=== PATIENT | female | born 1960 | race Caucasian/White ===

== ENCOUNTER 2018-03-10 13:12 | Outpatient (CLI) | payer BC, SELFPAY ==
[2018-03-10 14:08] LABS: HCT 41.2 % (36.0-46.0); Mean Corpuscular Hemoglobin 32.9 pg (27.0-33.0); Mean Corpuscular Volume 96.7 fL (80-95); Mean Platelet Volume 9.4 fL (8.0-11.0); Platelet Count 235 x1000/uL (130-400); RBC 4.26 m/cumm (4.00-5.20); RBC Distribution Width 12.2 % (11.7-14.6); White Blood Cell Count 5.03 k/cumm (4.4-10.8)
[2018-03-10 15:09] LABS: ALT 35 U/L (12-78); AST 30 U/L (15-37); Albumin 3.8 g/dL (3.4-5.0); Alkaline Phosphatase 75 U/L (46-116); Anion Gap 6.9 mmol/L (3-11); BUN 24 mg/dL (7-18); Bilirubin, Total 0.4 mg/dL (0.2-1.0); C-Reactive Protein 0.09 mg/dL (0.0-0.3); CO2 29.1 mmol/L (21.0-32.0); CREATININE 1.17 mg/dL (0.55-1.02); Calcium 9.5 mg/dL (8.5-10.1); Chloride 105 mmol/L (98-107); Estimated GFR 47.51 (mL/min/1.73m2); Glucose 102 mg/dL (70-100); Potassium 4.2 mmol/L (3.5-5.1); Sodium 141 mmol/L (136-145)
[2018-03-10 15:35] LABS: ESR 14 MM/HR (0-30)
== END 2018-03-10 13:32 ==
PROVIDERS: PCP Family Medicine; Visit Provider Internal Medicine Rheumatology
DX: L40.50 Arthropathic psoriasis, unspecified (principal); Z79.899 Other long term (current) drug therapy
CPT/HCPCS: 36415; 80053; 85027; 85652; 86140

== ENCOUNTER 2018-06-30 16:53 | Outpatient (CLI) | payer BC, SELFPAY ==
[2018-06-30 17:16] LABS: HCT 42.1 % (36.0-46.0); HGB 14.2 g/dL (12.0-15.5); Mean Corp. HGB Concentration 33.7 g/dL (32.0-36.0); Mean Corpuscular Hemoglobin 32.1 pg (27.0-33.0); Mean Corpuscular Volume 95.2 fL (80-95); Mean Platelet Volume 9.2 fL (8.0-11.0); Platelet Count 232 x1000/uL (130-400); RBC 4.42 m/cumm (4.00-5.20); RBC Distribution Width 12.4 % (11.7-14.6); White Blood Cell Count 4.73 k/cumm (4.4-10.8)
[2018-06-30 18:41] LABS: ESR 14 MM/HR (0-30)
[2018-06-30 19:23] LABS: ALT 36 U/L (12-78); AST 26 U/L (15-37); Alkaline Phosphatase 67 U/L (46-116); Anion Gap 10.8 mmol/L (3-11); BUN 21 mg/dL (7-18); Bilirubin, Total 0.4 mg/dL (0.2-1.0); CO2 27.2 mmol/L (21.0-32.0); CREATININE 0.97 mg/dL (0.55-1.02); Calcium 9.4 mg/dL (8.5-10.1); Chloride 106 mmol/L (98-107); Estimated GFR 58.98 (mL/min/1.73m2); Glucose 74 mg/dL (70-100); Sodium 144 mmol/L (136-145); Total Protein 7.2 g/dL (6.4-8.2)
[2018-06-30 19:24] LABS: C-Reactive Protein < 0.05 mg/dL (0.0-0.3)
== END 2018-06-30 17:13 ==
PROVIDERS: PCP Family Medicine; Visit Provider Internal Medicine Rheumatology
DX: L40.50 Arthropathic psoriasis, unspecified (principal); Z79.899 Other long term (current) drug therapy
CPT/HCPCS: 36415; 80053; 85027; 85652; 86140

== ENCOUNTER 2019-05-08 02:21 | Outpatient (CLI) | payer BC, SELFPAY ==
--- NOTE | 2019-05-08 15:11 | DI.CT_ITS ---
EXAM: CT PELVIC WO CLINICAL HISTORY: HX QUESTIONABLE PSORIATIC ARTHRITIS, EROSIONS ASSESSMENT OF SI JOINTS L40.9 TECHNIQUE: Noncontrast COMPARISON: SACRO ILIAC JOINTS from 12/04/2014 FINDINGS: There arebilateral L5 pars defects which appear old. There is mild L5-S1 spondylolisthesis. Degener ative disc changes are seen at L3-4, L4-5 and L5-S1. There is mild spurring of the SI joints. There are a few tiny bony erosions adjacent to the inferior SI joints bilaterally, right greater than left . The hip joints show moderate joint space narrowing and subchondral cyst formation on both sides of the joint. The urinary bladder is unremarkable. The evaluation of the bowel is suboptimal due to l ack of intra-abdominal fat and lack of IV and oral contrast. IMPRESSION: Mild spurring and a few tiny bony erosions adjacent to the inferior SI joints. The findings are nons pecific and could be degenerative or could possibly be related to psoriatic arthritis. Degenerative changes are noted in both hips and lower lumbar spine.
--- NOTE | 2019-05-08 15:52 | DI.DEXA_ITS ---
EXAM: XR DEXA BONE DENSITY W/WO SAUL INDICATION: OSTEOARTHRITIS OF MULTIPLE JOINTS M15.9. COMPARISON: DEXA BONE DENSITY WITH SAUL from 08/13/2015 FINDINGS: The SAUL image shows no evidence of compression fractures. The bone mineral density measurements of the lumbar spine correspond to a total T-score of -1.8, in the osteopenic range. This is not signifi cantly changed from the previous exam. The bone mineral density measurements of the left hip corresp ond to a total T-score of -1.2 and a femoral neck T-score of -1.4, in the osteopenic range. This is not significantly changed from the previous exam. The bone mineral density measurements of the left forearm correspond to a T-score of the distal third of -0.2. This is a 6.3 percent decrease when com pared with 2016. IMPRESSION: Stable osteopenia of the lumbar spine and left hip. Normal bone mineral density of the left forear m with decrease in bone density when compared with 2016 of 6.3 percent.
== END 2019-05-08 02:41 ==
PROVIDERS: PCP Family Medicine; Visit Provider Internal Medicine
DX: M85.88 Other specified disorders of bone density and structure, other site (principal); M15.0 Primary generalized (osteo)arthritis; M53.3 Sacrococcygeal disorders, not elsewhere classified; M16.0 Bilateral primary osteoarthritis of hip; M43.17 Spondylolisthesis, lumbosacral region
CPT/HCPCS: 77080; 72192

== ENCOUNTER 2019-06-06 10:39 | Outpatient (REF) | payer BC, SELFPAY | END 2019-06-06 10:59 | LOC: LBN 10:39 | PROVIDERS: PCP Family Medicine; Visit Provider Family Medicine | DX: N89.8 Other specified noninflammatory disorders of vagina (principal) | CPT/HCPCS: 87480; 87510; 87660 ==

== ENCOUNTER 2019-12-12 08:04 | Outpatient (CLI) | payer BC, SELFPAY ==
[2019-12-15 02:14] LABS: SARS-CoV-2 RNA Undetected (Undetected); SARS-CoV-2 Specimen Source Nasopharynx
== END 2019-12-12 08:24 ==
PROVIDERS: PCP Family Medicine; Visit Provider Family Medicine
DX: Z11.59 Encounter for screening for other viral diseases (principal)
CPT/HCPCS: U0003

== ENCOUNTER 2019-12-14 02:31 | Outpatient (CLI) | payer BC, SELFPAY ==
[2019-12-14 12:44] LABS: ALT 45 U/L (14-59)
== END 2019-12-14 02:51 ==
PROVIDERS: PCP Family Medicine; Visit Provider Internal Medicine
DX: Z79.899 Other long term (current) drug therapy (principal)
CPT/HCPCS: 36415; 84460

== ENCOUNTER 2019-12-21 00:23 | Outpatient (CLI) | payer BC, SELFPAY ==
--- NOTE | 2019-12-21 07:00 | DI.RAD_ITS ---
EXAM: RF BARIUM SWALLOW CLINICAL HISTORY: dysphagia, R13.10 TECHNIQUE: 2D and realtime digital imaging was performed. CONTRAST MATERIAL: Thick and thin barium and barium tablet were administered. COMPARISON: No exams were available for comparison FINDINGS: The preliminary chest films show normal heart size and clear lung zheng. The lateral press box custodian view of the neck shows degenerative changes in the cervical spine.. Esophagus: The patient swallowed barium without difficulty. Noevidence for mucosal erosions. Nofold thickening. No mass is visible. Nostricture. Motility: There is a normal primary stripping wave. No tertiary contractions were noted. There is no hiatal hernia. The barium tablet passed into the stomach without delay. Nogastroesophageal reflux was observed during the exam. IMPRESSION: Normal barium swallow.
[2019-12-21] MEDS: Barium Sulfate 60% W/V 355 ML BTL PO (10:09)
[2019-12-21] MEDS: Simethicone/Sod Bicarb/Cit Ac, 4 gram PACKET 1 PACKET PO (10:12)
== END 2019-12-21 00:43 ==
PROVIDERS: PCP Family Medicine; Visit Provider Family Medicine
DX: R13.10 Dysphagia, unspecified (principal)
CPT/HCPCS: 74221; J3490

== ENCOUNTER 2020-01-18 15:35 | Outpatient (REF) | payer BC, SELFPAY ==
[2020-01-18 19:42] LABS: Bilirubin Negative (Negative); Blood Trace-lysed (Negative); Clarity Clear (Clear); Glucose Negative (Negative); Ketones Negative (Negative); Leukocyte Esterase Negative (Negative); Nitrite Negative (Negative); Urobilinogen 0.2 EU/dL (Up TO 0.2)
[2020-01-18 20:01] LABS: Bacteria Negative HPF (Negative); C & S Indicated? No; Casts Negative LPF (Negative); Crystals Negative HPF (Negative); Epithelial Cells Few HPF (Negative); Mucus Negative (Negative); RBC 0-2 HPF (0-2)
== END 2020-01-18 15:55 ==
LOC: LBN 15:35
PROVIDERS: PCP Family Medicine; Visit Provider Family Medicine
DX: R30.0 Dysuria (principal)
CPT/HCPCS: 81003; 81015

== ENCOUNTER 2020-06-10 03:12 | Outpatient (RCR) | payer BC, SELFPAY ==
--- NOTE | 2020-06-10 11:00 | HOLTER_ITS ---
APPROVED REPORT Exam Type: HOLTER MONITOR APPLICATION Reason for Test: palpitation Patient Location: O Conclusion This is a 48-hour monitor order for indication of palpitations. ???The patient was in normal sinus rhythm for majority of the recording with an average heart rate of 86 bpm. ???There were 3 episodes of supraventricular tachycardia with the longest lasting 4 beats. ???There were 0 episodes of ventricular tachycardia and 3 total PVCs. ???There were no episodes of atrial fibrillation, no pauses greater than 3 seconds and no evidence of high degree heart block. ???There were no patient triggered events.
== END 2020-06-13 23:59 | disposition home or self-care (01) ==
LOC: RT 03:12
PROVIDERS: PCP Family Medicine; Visit Provider Family Medicine
DX: R00.2 Palpitations (principal); I47.1 Supraventricular tachycardia; I49.3 Ventricular premature depolarization
CPT/HCPCS: 93225; 93226

== ENCOUNTER 2020-06-12 02:59 | Outpatient (CLI) | payer BC, SELFPAY ==
[2020-06-12 16:59] LABS: MCH 31.6 pg (27.0-33.0); MCHC 32.6 % (32.0-36.0); MCV 97.1 fL (80-95); MPV 9.2 fL (8.0-11.0); Platelet Count 243 10^3/uL (130-400); RBC 4.43 10^6/uL (3.93-5.22); RDW 12.6 % (11.7-14.6); RDW-SD 45.4 fL
[2020-06-12 18:13] LABS: ALT 49 U/L (14-59); AST 30 U/L (15-37); Albumin 4.2 g/dL (3.4-5.0); Alkaline Phosphatase 79 U/L (46-116); BUN 25 mg/dL (7-18); Bilirubin, Total 0.5 mg/dL (0.2-1.0); CREATININE 1.05 mg/dL (0.55-1.02); Calcium 9.5 mg/dL (8.5-10.1); Calculated LDL 231 mg/dL (<100); Chloride 104 mmol/L (98-107); Cholesterol 366 mg/dL (<200); Estimated GFR 53.46 (mL/min/1.73m2); Glucose 94 mg/dL (74-106); HDL Cholesterol 119 mg/dL (40-60); Potassium 4.1 mmol/L (3.5-5.1); Sodium 140 mmol/L (136-145); TSH (W/Ref FT4) 1.61 uIU/mL (0.36-3.74); Total Protein 7.5 g/dL (6.4-8.2); Triglyceride 82 mg/dL (<150); Vitamin B12 1035 pg/mL (193-986)
[2020-06-12 18:17] LABS: Folate > 20.0 ng/mL (8.6-20.0)
[2020-06-13 04:46] LABS: Vitamin D 25 Total 58.5 ng/ml (30-100)
== END 2020-06-12 03:19 ==
PROVIDERS: PCP Family Medicine; Visit Provider Family Medicine
DX: Z00.00 Encounter for general adult medical examination without abnormal findings (principal); R00.2 Palpitations
CPT/HCPCS: 36415; 80053; 80061; 82306; 85027; 82607; 82746; 84443

== ENCOUNTER 2020-09-06 04:06 | Outpatient (CLI) | payer BC, SELFPAY ==
--- NOTE | 2020-09-06 14:33 | DI.RAD_ITS ---
EXAM: XR KNEE RT 3V AP,LAT,KATERINE CLINICAL HISTORY: right knee pain, severe djd, oa,m17.12 TECHNIQUE: COMPARISON: No exams were available for comparison FINDINGS: Three views were obtained. There is severe narrowing of the medial tibiofemoral cartilaginous joint space. There is medial subluxation of the femur on the tibia. There is probable narrowing of the pa tellofemoral cartilaginous joint space. There are very prominent marginal osteophytes of all 3 joint s of the knee and there is chondrocalcinosis noted. IMPRESSION: Severe DJD most marked involving medial tibiofemoral joint. RADIATION DOSE DELIVERED: Total DLP
--- NOTE | 2020-09-06 14:42 | DI.RAD_ITS ---
EXAM: XR HIP RT COMPLETE AP PELVIS CLINICAL HISTORY: right hip pain,ARTHRITIS, M16.10 TECHNIQUE: COMPARISON: CR SACRO ILIAC JOINTS from 12/04/2014 FINDINGS: Two views were obtained. There is moderate to severe loss of the cartilaginous joint space of the hi p superiorly. There is mild subchondral sclerosis and cyst formation of the acetabulum. Minimal mar ginal osteophyte formation of the acetabulum and femoral head noted. There is cartilaginous joint space narrowing of the left hip joint noted as well. Similar mild hyper trophic change also noted involving the bones of the left hip. Mild degenerative changes of both SI joints noted as well. IMPRESSION: Moderate degenerative changes both hips RADIATION DOSE DELIVERED: Total DLP
== END 2020-09-06 04:26 ==
PROVIDERS: PCP Family Medicine; Visit Provider Family Medicine
DX: M25.551 Pain in right hip (principal); M16.0 Bilateral primary osteoarthritis of hip; M53.3 Sacrococcygeal disorders, not elsewhere classified; M25.561 Pain in right knee; M17.11 Unilateral primary osteoarthritis, right knee
CPT/HCPCS: 73562; 73502

== ENCOUNTER 2021-01-10 01:30 | Outpatient (CLI) | payer BC, SELFPAY ==
[2021-01-10 12:24] LABS: HGB 13.6 g/dL (11.2-15.7); MCH 31.3 pg (27.0-33.0); MCHC 32.4 % (32.0-36.0); MCV 96.6 fL (80-95); Platelet Count 250 10^3/uL (130-400); RBC 4.35 10^6/uL (3.93-5.22); RDW 12.4 % (11.7-14.6); RDW-SD 44.4 fL; WBC 4.65 10^3/uL (4.4-10.8)
[2021-01-10 12:32] LABS: ESR 6 mm/hr (0-30)
[2021-01-10 12:35] LABS: ALT 23 U/L (14-59); AST 26 U/L (15-37); Alkaline Phosphatase 74 U/L (46-116); Anion Gap 11.2 mmol/L (3-11); BUN 21 mg/dL (7-18); Bilirubin, Total 0.5 mg/dL (0.2-1.0); CO2 25.8 mmol/L (21.0-32.0); CREATININE 0.9 mg/dL (0.55-1.02); Calcium 9.7 mg/dL (8.5-10.1); Chloride 105 mmol/L (98-107); Glucose 101 mg/dL (74-106); Potassium 4.3 mmol/L (3.5-5.1); Sodium 142 mmol/L (136-145)
[2021-01-13 10:16] LABS: IgA 132 mg/dL (85-499); IgG 734 mg/dL (610-1,616); IgM 402 mg/dL (35-242)
[2021-01-13 15:51] LABS: ANA Interpretation Negative (Negative)
[2021-01-14 15:25] LABS: SS-A Antibody 0.9 Units (<20.0)
[2021-01-14 15:28] LABS: SS-B (La) Ab, IgG 2.4 Units (<20.0)
== END 2021-01-10 01:31 | disposition home or self-care (01) ==
LOC: LOS 01:30
PROVIDERS: PCP Family Medicine; Visit Provider Family Medicine
DX: R68.2 Dry mouth, unspecified (principal); H04.123 Dry eye syndrome of bilateral lacrimal glands
CPT/HCPCS: 36415; 80053; 82784; 85027; 85652; 84155; 84165; 86038; 86235; 86320

== ENCOUNTER 2021-04-28 17:35 | Outpatient (REF) | payer BC, SELFPAY ==
[2021-04-28 21:46] LABS: Bilirubin Negative (Negative); Blood Trace-intact (Negative); Clarity Cloudy (Clear); Glucose Negative (Negative); Ketones Trace mg/dL (Negative); Leukocyte Esterase Small (Negative); Nitrite Negative (Negative); Urobilinogen 0.2 EU/dL (Up TO 0.2); pH 7.5 (5-8)
[2021-04-28 21:47] LABS: Bacteria Many HPF (Negative); C & S Indicated? Yes; Casts Negative LPF (Negative); Crystals Negative HPF (Negative); Epithelial Cells Few HPF (Negative); Mucus Negative (Negative)
== END 2021-04-28 17:36 | disposition home or self-care (01) ==
LOC: NCHCN 17:35
PROVIDERS: PCP Family Medicine; Visit Provider Family Medicine
DX: R30.0 Dysuria (principal)
CPT/HCPCS: 87077; 81003; 81015; 87086; 87186

== ENCOUNTER 2021-04-29 14:26 | Outpatient (CLI) | payer BC, SELFPAY ==
--- NOTE | 2021-04-29 14:15 | DI.RAD_ITS ---
Exam(s) XR STANDING ALIGNMENT XR KNEE RT 1V EXAM: XR STANDING ALIGNMENT CLINICAL HISTORY: Right knee f/u. TECHNIQUE: 2D digital imaging was performed. Standing AP views were performed from the pelvis throu gh the ankles. COMPARISON: CR XR KNEE RT 1V from 04/29/2021 CR XR KNEE RT 1V from 04/29/2021 FINDINGS: There is moderate narrowing of the hip joint spaces bilaterally. There is no significant overall leg length discrepancy at the level of the femoral heads. There are severe degenerative changes of the medial femoral tibial joint space of the right knee. There is also severe narrowing and prominent sp urring at the patellofemoral joint on the right. There is periarticular spurring and chondral calcin osis. There is moderate narrowing of the medial femoral tibial joint space of left knee. Chondrocal cinosis is also seen on the left. There are mild degenerative changes of the ankles. Degenerative c hanges and scoliosis are noted in the lumbar spine. IMPRESSION: Degenerative changes, most severe involving the medial femoral tibial joint of the right knee. No si gnificant leg length discrepancy. DATA REPOSITORY: RADIATION DOSE DELIVERED:
== END 2021-04-29 14:27 | disposition home or self-care (01) ==
LOC: DIORS 14:27
PROVIDERS: PCP Family Medicine; Referring Provider Family Medicine; Visit Provider Physician Assistant
DX: M17.11 Unilateral primary osteoarthritis, right knee (principal); M16.0 Bilateral primary osteoarthritis of hip; M19.071 Primary osteoarthritis, right ankle and foot; M19.072 Primary osteoarthritis, left ankle and foot
CPT/HCPCS: 73560; 77073

== ENCOUNTER 2021-05-05 02:51 | Outpatient (CLI) | payer BC, SELFPAY ==
[2021-05-05 10:38] LABS: Source Nasal/Nares
[2021-05-05 13:55] LABS: COVID-19 PCR Negative (Negative)
== END 2021-05-05 02:52 | disposition home or self-care (01) ==
LOC: LBO 02:51
PROVIDERS: PCP Family Medicine; Visit Provider Student in an Organized Health Care Education/Training Program
DX: Z20.822 Contact with and (suspected) exposure to COVID-19 (principal)
CPT/HCPCS: 87635

== ENCOUNTER 2021-05-05 03:34 | Outpatient (CLI) | payer BC, SELFPAY ==
[2021-05-05 09:08] LABS: HCT 40.1 % (36.0-46.0); HGB 13.2 g/dL (11.2-15.7); MCH 31.1 pg (27.0-33.0); MCHC 32.9 % (32.0-36.0); MCV 94.4 fL (80-95); MPV 9.7 fL (8.0-11.0); Platelet Count 277 10^3/uL (130-400); RBC 4.25 10^6/uL (3.93-5.22); RDW 12.4 % (11.7-14.6); RDW-SD 43.1 fL; WBC 5.38 10^3/uL (4.4-10.8)
[2021-05-05 09:25] LABS: Anion Gap 7.2 mmol/L (3-11); BUN 25 mg/dL (7-18); CO2 27.8 mmol/L (21.0-32.0); CREATININE 1.1 mg/dL (0.55-1.02); Calcium 9.3 mg/dL (8.5-10.1); Chloride 100 mmol/L (98-107); Glucose 90 mg/dL (74-106); Potassium 4.4 mmol/L (3.5-5.1); Sodium 135 mmol/L (136-145)
== END 2021-05-05 03:35 | disposition home or self-care (01) ==
LOC: LBO 03:34
PROVIDERS: PCP Family Medicine; Visit Provider Student in an Organized Health Care Education/Training Program
DX: M16.11 Unilateral primary osteoarthritis, right hip (principal); Z01.818 Encounter for other preprocedural examination
CPT/HCPCS: 36415; 80048; 85027

== ENCOUNTER 2021-05-06 06:02 | Day surgery (SDC) | payer BC, SELFPAY ==
[2021-05-06] VITALS (12 sets, daily range): BP systolic 102–133; BP diastolic 68–99; PULSE 54–95; RESP 12–18; TEMP 36.3–36.6; O2SAT 95–100; BMI 22.4
[2021-05-06] MEDS: Celecoxib 200 MG CAP 400 MG PO (06:30)
[2021-05-06] MEDS: Acetaminophen 500 MG TAB 1000 MG PO ×2 (06:31→13:40)
[2021-05-06] MEDS: Gabapentin 300 MG CAP PO (06:31)
[2021-05-06] MEDS: Lactated Ringers 1,000 ML 80 ML IV (06:42)
--- NOTE | 2021-05-06 06:58 | W.ANESPRE ---
General Info Date of Service Date Performed: 05/06/21 Height: 5 ft 3 in Weight: 57.5 kg Body Mass Index (BMI): 22.4 Surgical Procedure: Operation Date: 05/06/21 07:55 Proposed Procedures Side Surgeon p Knee Total Arthroplasty (R) Right Blane Lainez MD Meds Allergies and Home Medications Allergies Allergy/AdvReac Type Severity Reaction Status Date / Time doxycycline Allergy Intermediate Rash Verified 05/06/21 06:10 phenylbutazone AdvReac WANG's Verified 05/06/21 06:10 Home Medication Medication Instructions Recorded flaxseed oil 2,000 mg PO DAILY 02/09/13 multivitamin [Daily Vitamin] 1 tab PO DAILY 02/09/13 lysine HCl 1,000 mg PO TID PRN 01/15/15 estradiol 10 mcg vaginal tablet 10 mcg VG 2x/week #30 tab 11/06/20 pantoprazole 40 mg tablet,delayed 40 mg PO DAILY 11/08/20 release melatonin 3 mg-pyridoxine (vitamin 2 tab PO HS tab 01/09/21 B6) 2 mg tablet turmeric root extract 500 mg 500 mg PO DAILY cap 01/09/21 capsule triamcinolone acetonide 0.1 % 1 applic TOPICAL BID PRN #80 gm 01/31/21 topical ointment estradiol 1 appful VG DAILY #127.5 g 02/28/21 naproxen 500 mg tablet 500 mg PO BID #180 tab 03/25/21 secukinumab 150 mg/mL subcutaneous 300 mg SUBCUT Q4W ml 04/03/21 pen injector duloxetine 30 mg capsule,delayed 30 mg PO BID #180 cap 04/14/21 release diclofenac sodium 1 % topical gel 2 g TOPICAL QID PRN 04/29/21 guselkumab [Tremfya] 100 mg SUBCUT DIRECTED 05/05/21 Current Visit Medications: Current Medications Generic Name Dose Route Start Last Admin Trade Name Freq PRN Reason Stop Dose Admin Acetaminophen 1,000 mg 05/06/21 06:00 05/06/21 06:31 Acetaminophen 500 Mg Tab PO 05/06/21 16:00 1,000 mg PREOP BA Administration Celecoxib 400 mg 05/06/21 06:00 05/06/21 06:30 Celecoxib 200 Mg Cap PO 05/06/21 16:00 400 mg PREOP BA Administration Gabapentin 300 mg 05/06/21 06:00 05/06/21 06:31 Gabapentin 300 Mg Cap PO 05/06/21 16:00 300 mg PREOP BA Administration Tranexamic Acid 1,000 mg/ 60 mls @ 360 mls/hr 05/06/21 06:00 Sodium Chloride IVPB 05/06/21 16:00 PREOP BA Tranexamic Acid 1,000 mg/ 60 mls @ 360 mls/hr 05/06/21 06:00 Sodium Chloride IVPB 05/06/21 16:00 DIRECTED BA Ringer's Solution 1,000 mls @ 80 mls/hr 05/06/21 06:00 05/06/21 06:42 IV 06/04/21 23:59 80 mls/hr INFUSION BA Administration Cefazolin Sodium/Dextrose 2 gm in 50 mls @ 100 mls/hr 05/06/21 06:00 Ancef Duplex IVPB 06/04/21 23:59 PREOP BA IV Miscellaneous Supplies 1 each 05/06/21 06:00 Iv Access IV 06/04/21 23:59 DIRECTED BA Sodium Chloride 0 ml 05/06/21 06:00 Normal Saline Flush 10 Ml Syr IV 06/04/21 23:59 PRN PRN Sodium Chloride 0 ml 05/06/21 06:00 Normal Saline 10 Ml Vial IJ 06/04/21 23:59 DIRECTED PRN Sterile Water 0 ml 05/06/21 06:00 Water,Injection,Sterile 10 Ml Vial IJ 06/04/21 23:59 DIRECTED PRN PFSH Active Problems Active Problems: Problem Status Onset Code Varicose veins of lower extremity I83.90 Sun-damaged skin 12/24/16 L57.8 Psoriatic arthritis 01/15/15 L40.50 Atypical mole 12/24/16 D22.9 Annual physical exam 04/04/15 Z00.00 Melanoma Spondylolisthesis M43.10 Skin irritation R23.8 Palpitations R00.2 Mammographic breast lesion 01/31/13 R92.8 Incomplete emptying of bladder R33.9 Hypercalcemia 07/17/13 E83.52 Grief at loss of child 10/01/15 F43.21, Z63.4 Enlarged lymph node 09/01/16 R59.9 Closed fracture of phalanx of finger 02/24/08 S62.609A Insomnia G47.00 ADITYA (obstructive sleep apnea) ~07/2019 G47.33 Skin lesion L98.9 Dysphagia R13.10 Dysuria R30.0 Palpitation R00.2 Hip arthritis M16.10 Right knee DJD M17.11 Femoroacetabular impingement of both hips M25.851, M25.852 Arthritis of right hip M16.11 Splinter T14.8XXA Xerostomia K11.7 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 Throat clearing R68.89 Cervical pain M54.2 Medical History Active Problem List Varicose veins of lower extremity (Chronic) Sun-damaged skin (Chronic 12/24/16) Psoriatic arthritis (Chronic 01/15/15) Atypical mole (Chronic 12/24/16) Annual physical exam (Acute 04/04/15) Melanoma (Acute) Spondylolisthesis (Acute) Skin irritation (Acute) Palpitations (Acute) Mammographic breast lesion (Acute 01/31/13) Incomplete emptying of bladder (Acute) Hypercalcemia (Acute 07/17/13) Grief at loss of child (Acute 10/01/15) Enlarged lymph node (Acute 09/01/16) Closed fracture of phalanx of finger (Acute 02/24/08) Insomnia (Acute) ADITYA (obstructive sleep apnea) (Chronic ~07/2019) Skin lesion (Acute) Dysphagia (Acute) Dysuria (Acute) Palpitation (Acute) Hip arthritis (Acute) Right knee DJD (Chronic) Femoroacetabular impingement of both hips (Acute) Arthritis of right hip (Acute) Splinter (Acute) Xerostomia (Acute) Xerophthalmia (Acute) Throat clearing (Acute) Cervical pain (Acute) Medical History Abnormal laboratory test result (07/17/13) elevated mcv Breast mass seen on mammogram 01/31/13 [facility] [place]; left breast mass Cat 4 Closed fracture of phalanx of finger 02/24/08 right middle distal phalanx Grief at loss of child (10/01/15) Hypercalcemia 07/17/13 Incomplete emptying of bladder Palpitations ? secondary to Arthrotec Pt. had holter monitor Parathyroid adenoma Skin irritation reaction to pool chemicals Spondylolisthesis LBP; L5-S1 Surgical History Surgical History (Updated 05/06/21 @ 07:13 by Yemi Corbett) BUNIONECTOMY 06/28; ROSALINDA Colonoscopy - MAC (03/04/12) History of varicose vein stripping Open Carpal Tunnel release (~1982) RIGHT Parathyroidectomy (06/02/17) S/P abdominal hysterectomy 06/14/99 ovary intact; fibroid disease S/P meniscectomy left-2006; right-2009 S/P DELMY (total abdominal hysterectomy) Status post fusion of joint of finger Right index and middle DIP joints Tobacco Smoking/Tobacco Use Status: Never Passive smoking exposure: No Alcohol Alcohol Intake: current Alcohol intake frequency: a few times a month Alcohol type: wine and hard liquor Substance Use Substance use: Never Substance use type: does not use Counseling given: No Counseling provided: none Vital Signs and Lab Results Vital Signs Most Recent Vital Signs in EMR: Most Recent Vital Signs Temp Pulse Resp BP Pulse Ox 36.6 C 83 16 115/82 95 05/06/21 06:15 05/06/21 06:15 05/06/21 06:15 05/06/21 06:15 05/06/21 06:15 Lab Results Blood Type / Crossmatch: No Data to Display Complete Blood Count: White Blood Count 5.38 10^3/uL (4.4-10.8) 05/05/21 08:25 05/05/21 Red Blood Count 4.25 10^6/uL (3.93-5.22) 05/05/21 08:25 05/05/21 Hemoglobin 13.2 g/dL (11.2-15.7) 05/05/21 08:25 05/05/21 Hematocrit 40.1 % (36.0-46.0) 05/05/21 08:25 05/05/21 Platelet Count 277 10^3/uL (130-400) 05/05/21 08:25 05/05/21 Complete Metabolic Panel: Sodium Level 135 mmol/L (136-145) L 05/05/21 08:25 05/05/21 Potassium Level 4.4 mmol/L (3.5-5.1) 05/05/21 08:25 05/05/21 Chloride Level 100 mmol/L (98-107) 05/05/21 08:25 05/05/21 Carbon Dioxide Level 27.8 mmol/L (21.0-32.0) 05/05/21 08:25 05/05/21 Blood Urea Nitrogen 25 mg/dL (7-18) H 05/05/21 08:25 05/05/21 Creatinine 1.1 mg/dL (0.55-1.02) H 05/05/21 08:25 05/05/21 Estimated GFR/1.73 m2 50.50 (mL/min/1.73m2) 05/05/21 08:25 05/05/21 Calcium Level 9.3 mg/dL (8.5-10.1) 05/05/21 08:25 05/05/21 Glucose Level 90 mg/dL (74-106) 05/05/21 08:25 05/05/21 Liver Function Panel: No Data to Display Coagulation Panel: No Data to Display Cardiac Panel: No Data to Display Arterial Blood Gas: No Data to Display Venous Blood Gas: No Data to Display Pancreas Panel: No Data to Display Thyroid Panel: No Data to Display Infectious Disease: Coronavirus (COVID-19)(PCR) Negative (Negative) 05/05/21 08:48 05/05/21 Coronavirus 2019 Source Nasal/Nares 05/05/21 08:48 05/05/21 Blood Cultures: No Data to Display Toxicology Panel: No Data to Display Imaging and Studies Imaging and Studies Other Study Summary:: Exam Type: HOLTER MONITOR APPLICATION Reason for Test: palpitation Patient Location: O Conclusion This is a 48-hour monitor order for indication of palpitations. ???The patient was in normal sinus rhythm for majority of the recording with an average heart rate of 86 bpm. ???There were 3 episodes of supraventricular tachycardia with the longest lasting 4 beats. ???There were 0 episodes of ventricular tachycardia and 3 total PVCs. ???There were no episodes of atrial fibrillation, no pauses greater than 3 seconds and no evidence of high degree heart block. ???There were no patient triggered events. <Electronically signed by HILARIA WILDER MD in [place]> E-Sign Date: 06/17/20 E-Sign Time: 928 Anesthesia Assessment and Plan Anesthesia History Personal History: No History of Anesthesia Complications Family History: No Family History of Anesthesia Complications Exercise Tolerance Exercise Tolerance: Metabolic Equivalents>4 Pertinent Negatives Pertinent Negatives: No Symptoms of GERD, No Major Cardiovascular Symptoms or Complaints, No Major Pulmonary Symptoms or Complaints and No History of CVA/TIA Cardiac & Pulmonary Exam Cardiac Exam: Normal S1/S2 Heart Sounds Pulmonary Exam: Clear Bilateral Breath Sounds Implantable Cardiac Device Does patient have a Pacemaker or an ICD?: No Airway Exam Known Difficult Airway: No Mallampati Class: 1 Mouth Opening: Normal (> 3cm) Thyromental Distance: Greater than 3 cm Neck Range of Motion: Full ROM Neck Circumference: Normal Teeth Condition: Normal Dentition Airway Comments: Multiple crowns in back ASA Classification ASA Score: ASA 2 Emergency Case?: No NPO Status NPO Status: NPO Clears >2 hours, Solids >8 hours Anesthesia Plan Resuscitation Status: Full Code Anesthesia Technique: Spinal Anesthesia Airway Planned: Natural Airway Monitors Used: Standard Monitors
[2021-05-06] MEDS: ceFAZolin 2 GM/50 ML BAG IVPB (07:45)
--- NOTE | 2021-05-06 07:54 | W.ANESNERVE ---
Nerve Block Single Injection Procedure Date and Time Date Performed: 05/06/21 Procedure Start: 07:12 Location Where Procedure Performed Procedure Location: Day Surgery Unit Reason Performed: Postoperative Analgesia Requesting Provider: Blane Lainez Timeout Performed Timeout Performed: Yes Monitoring Used ECG, Blood Pressure and SpO2 Sterility Sterility: Hand Hygiene, Surgical Cap, Surgical Mask, Sterile Gloves, Sterile Drape/Sheet, Eye Protection and Chlorhexidine Sedation Given During Procedure Sedation Given (Indicate Dose Given): No Sedation given Patient Mental Status Patient Mental Status: Awake Nerve Block 1st Nerve Block: Laterality: Right Block Type: Adductor Canal Needle / Catheter Used: 100mm SonoPlex II Local Anesthetic Bolus (Indicate Dose Given): Lidocaine used for local infiltration of skin, Injected in 3-5ml increments after negative blood aspiration and Bupivacaine 0.25% Dose:: 20cc Additives (Indicate Dose Given): None Ultrasound: Sterile probe cover and gel used Ultrasound Image Saved?: Yes Nerve Stimulator: Not Used Paresthesia: None Procedure Tolerated: No Complications and Patient tolerated well Procedure Outcome: Successful Performed By: Vernon Caraballo
[2021-05-06] MEDS: Ketorolac 30 MG/ML VIAL (08:28)
[2021-05-06] MEDS: Bupivacaine 0.25% Pres-Free 30 ML VIAL (08:28)
[2021-05-06] MEDS: Normal Saline 20 ML VIAL (08:28)
[2021-05-06] MEDS: oxyCODONE 5 MG TAB PO (10:39)
--- NOTE | 2021-05-06 10:44 | NUR.NOTE ---
Weak dorsiflexion on right on arrival from PACU. Loss of dorsiflexion on right foot 30 minutes later. Anesthesia made aware with Volodymyr from anesthesia in to evaluate. States Dr. Lainez has been made aware and will be in. Nursing Note:
--- NOTE | 2021-05-06 12:14 | PDOC.DSDIS_ITS ---
Discharge Plan Disposition Patient Disposition: HOME Condition: Good Discharge Details Reason For Visit: Right Knee DJD Attending Provider: Blane Lainez Primary Care Provider: Nataliya Veliz Home Meds and New Rx's Prescriptions: New acetaminophen 500 mg tablet 1,000 mg PO Q8H PRN (Reason: pain) Qty: 90 RF: 3 aspirin 81 mg tablet,delayed release (DR/EC) 81 mg PO BID Qty: 60 RF: 0 docusate sodium [Colace] 100 mg capsule 100 mg PO BID PRNQty: 10 RF: 0 gabapentin 300 mg capsule 300 mg PO QHS Qty: 7 RF: 0 oxycodone 5 mg tablet 5 mg PO Q4H Qty: 15 RF: 0 Continued turmeric root extract 500 mg capsule 500 mg PO DAILY RF: 0 pantoprazole [Protonix] 40 mg tablet,delayed release (DR/EC) 40 mg PO DAILY RF: 0 naproxen 500 mg tablet 500 mg PO BID Qty: 180 RF: 5 diclofenac sodium [Voltaren Arthritis Pain] 1 % gel 2 g topical QID PRNRF: 0 multivitamin [Daily Vitamin] 1 EACH tablet 1 tab PO DAILY RF: 0 flaxseed oil 1,000 MG capsule 2,000 mg PO DAILY RF: 0 lysine HCl 1,000 MG tablet 1,000 mg PO TID PRNRF: 0 estradiol [Vagifem] 10 mcg tablet 10 mcg VG 2x/week Qty: 30 RF: 12 melatonin-pyridoxine (vit B6) 3-2 mg tablet 2 tab PO HS RF: 0 triamcinolone acetonide 0.1 % ointment 1 applic Topical BID PRN (Reason: rash) Qty: 80 RF: 3 estradiol [Estrace] 0.01 % (0.1 mg/gram) cream 1 appful VG DAILY Qty: 127.5 RF: 4 Cosentyx Pen (2 Pens) 150 mg/mL pen injector 300 mg subcut Q4W RF: 0 Hold Instructions: Home Medication placed on hold at Doctor's office duloxetine 30 mg capsule,delayed release(DR/EC) 30 mg PO BID Qty: 180 RF: 6 Tremfya 100 mg/mL Auto-Injector 100 mg SUBCUT DIRECTED RF: 0 Discharge Instructions Additional Instructions: Total Knee Discharge Instructions Activity: The most important activity is to walk. You should try to take short walks a few times a day. It is important that when resting you work on keeping the knee straight. Avoid putting a pillow behind the knee as this will encourage flexion. Work on range of motion exercises as provided by Physical Therapy. If you have the [employer] bike coming, this will be your primary tool for exercise after the knee replacement. You should use it and follow the directions for the knee. Utilize the other exercises sparingly based on your symptoms. - Start outpatient physical therapy within 2 weeks. - You should wear the ANGELES hose on both legs for 2 weeks. You may remove these at night. You may also use any compression sock in place of the ANGELES hose. - Utilize [employer] to review exercises, see videos on exercises and obtain basic information pertaining to your surgery and your recovery. Dressing: Remove the Gene wrap by 2 days after your surgery and put on the ANGELES stocking given to you from the hospital. Keep the surgical dressing (underneath the GENE wrap) in place for at least one week. After the first week it may be removed and replaced with light gauze and tape or nothing. The wound and dressing may get wet after 3 days but avoid soaking the dressing or otherwise it will need to be changed. Many people prefer covering the dressing with cling wrap (saran wrap) to minimize it from getting soaked. If it gets wet, just pat dry. If it starts to peel off then it will need to be changed. Medications: - You should take Tylenol and anti-inflammatory Naproxen as your primary pain control. - You have been prescribed a stronger pain medication Oxycodone for breakthrough pain, take as needed as prescribed. - You should continue your stomach acid reduction agent Pantoprozole to help reduce stomach acid and reflux. - You have been prescribed Gabapentin to take at night for restlessness and nerve pain. - You will be taking Aspirin 81mg twice a day for DVT prevention unless instructed otherwise. - If you have constipation you should take Colace or Miralax (both [id number]). It takes most people 3-4 days to have a bowel movement. Follow-up: 2 weeks If you have any acute concerns or questions, please do not hesitate to contact the office at [phone]. You may contact Dr. Lainez with any questions after hours through the hospital at [phone] or on his cell phone at [phone]. Stand Alone Forms: Anesthesia Discharge Inst., Anes.Nerve Block Instructions Referrals: Blane Lainez MD [ [facility] STAFF PHYSICIAN] - Equipment/Supplies: Walker Activity:: Activity as Tolerated Shower/Bathe:: 72 hours Diet:: As Tolerated Discharge Orders Discharge Orders: Discharge Order (Routine); Ordered 05/06/21 Ordered By: Blane Lainez DS: Diagnosis Discharge Diagnosis (1) Right knee DJD: Status: Chronic
--- NOTE | 2021-05-06 12:15 | IN_ITS ---
Date of service: 05/06/21 Time of Service: 12:15 PT Notes Visit Reasons: Right Knee DJD Physical Therapy Day Surgery Initial Evaluation Date: 05/06/2021 Referring Doctor: CORBY Carrera PT Orders: PT CONSULT: Status post Ortho surgery Precautions: WBAT on right LE with AD. Patient Profile/Admitting Diagnosis: Ally is a 60-year-old female with degenerative joint disease of the right knee and is status post right total knee arthroplasty on postoperative day 0. Active Problem List (Updated 04/29/21 @ 15:26 by Lauren Quinn) Cervical pain (Acute) Throat clearing (Acute) Xerophthalmia (Acute) Xerostomia (Acute) Splinter (Acute) Arthritis of right hip (Acute) Femoroacetabular impingement of both hips (Acute) Right knee DJD (Chronic) Hip arthritis (Acute) Palpitation (Acute) Dysuria (Acute) Dysphagia (Acute) Skin lesion (Acute) ADITYA (obstructive sleep apnea) (Chronic ~07/2019) Annual physical exam (Acute 04/04/15) Insomnia (Acute) Closed fracture of phalanx of finger (Acute 02/24/08) Enlarged lymph node (Acute 09/01/16) Grief at loss of child (Acute 10/01/15) Hypercalcemia (Acute 07/17/13) Incomplete emptying of bladder (Acute) Mammographic breast lesion (Acute 01/31/13) Palpitations (Acute) Skin irritation (Acute) Spondylolisthesis (Acute) Melanoma (Acute) Atypical mole (Chronic 12/24/16) Psoriatic arthritis (Chronic 01/15/15) Sun-damaged skin (Chronic 12/24/16) Varicose veins of lower extremity (Chronic) PMHX: Medical History (Updated 04/29/21 @ 15:26 by Lauren Quinn) Abnormal laboratory test result (07/17/13) elevated mcv Breast mass seen on mammogram 01/31/13 [facility]; left breast mass Cat 4 Closed fracture of phalanx of finger 02/24/08 right middle distal phalanx Grief at loss of child (10/01/15) Hypercalcemia 07/17/13 Incomplete emptying of bladder Palpitations ? secondary to Arthrotec Parathyroid adenoma Skin irritation reaction to pool chemicals Spondylolisthesis LBP; L5-S1 Surgical History (Updated 04/29/21 @ 14:27 by Lauren Quinn) BUNIONECTOMY 06/28; ROSALINDA Colonoscopy - MAC (03/04/12) History of varicose vein stripping Open Carpal Tunnel release (~1982) RIGHT Parathyroidectomy (06/02/17) S/P abdominal hysterectomy 06/14/99 ovary intact; fibroid disease S/P meniscectomy left-2006; right-2009 Status post fusion of joint of finger Right index and middle DIP joints Social History/Home Situation: Lives with in a private home with one- step to enter the porch, 1 step to the entrance of the house and another 1 step to the kitchen. Independent with all activities of daily living prior to surgery. Equipment Owned/DME: None Subjective: Initially reported lightheadedness and needed to lie back down in bed. Nurse Yemi checked for orthostatic hypotension. Patient reported feeling better after a few minutes of rest in supine. Understands that her ability to lift her right foot may go back in 2 to 3 days per orthopedic surgeon. Objective: General Observation: Supine in stretcher. LUANNE wraps to right LE. Cryocuff to right knee. Mental Status: Alert and oriented x4 Pain: Reports 3?4/10 pain at rest and 5/10 pain after stair negotiation. ROM: Right Lower Extremity: Hip flexion WFL. Hip abduction WFL. Knee flexion 0 to 90 degrees. Knee extension 90 degrees to 0. Ankle dorsiflexion absent. Ankle plantarflexion WFL. Left Lower Extremity: Hip flexion WFL. Hip abduction WFL. Knee flexion WFL. An kle dorsiflexion WFL. Ankle plantarflexion WFL. Strength: Right Lower Extremity: Hip flexors 4/5. Hip abductors 4/5. Knee flexors 3-/5. Knee extensors 3/5. Ankle dorsiflexors 1/5. Ankle plantarflexors 4/5. Left Lower Extremity:Hip flexors 5/5. Hip abductors 5/5. Knee flexors 5/5. Knee extensors 5/5. Ankle dorsiflexors 5/5. Ankle plantarflexors 5/5. Sensation: Intact to B LE as to pain and light pressure Bed Mobility/Transfers: Supine to sit standby assist Sit to stand standby assist Stand to sit standby assist Bed to chair standby assist Gait: Instructed patient with safe and correct with use of front wheeled walker on level surface patient 200 feet requiring contact-guard assist. Steppage gait evident in right LE. Stairs: Negotiated 6 x 4 inch steps and 4 x 6 inch steps while holding onto B rails. Minimal cues given to increase flexion at the hip and the knee to clear toes during ascent and descent. No LOB. No report of increased pain in the right knee. Balance: Static Sitting: Normal Dynamic Sitting: Normal Static Standing: Fair Dynamic Standing: Fair Special Tests: Mobility Limitations Standardized Measure [facility] 6 clicks Basic Mobility Inpatient Short Form: Raw Score: 23 CMS Score: 11% deficit Informed Consent/Education: Patient instructed in purpose of PT consult. Packet containing R TKA exercise protocol has been given to patient. Education and training on initial set of exercises that can be done at home have been completed with patient. Assessment: Good quad activation on the R. Sensation to R anterior leg and dorsum of R foot intact. Postoperative temporary peroneal nerve palsy seen. Patient reports the use of front wheeled walker to maximize independence and reduce fall risk at home. Patient presents with clinical signs and symptoms consistent with current/admitting diagnoses that have resulted to mobility limitations, gait instability, generalized weakness, and impairment of motor control as demonstrated by the following impairment level findings: 1. Decreased strength to right knee flexors and right ankle dorsiflexors 2. Impaired standing balance 3. Limitation of joint range of motion in right knee knee flexion and and right ankle dorsiflexion Impairments are contributing to the following functional limitations: 1. Inability to safely ambulate without assistive device 2. Increase completion time for mobility ADL performance 3. Increased fall risk Patient is assessed as a 60488 moderate complexity based on the following: History: 60-year-old female with impairment level findings, functional limitations, and past medical history as indicated above Examination: Demonstrable impairment in strength, balance, and mobility level with underlying impairments and functional limitations as documented above Presentation: Evolving Decision Makin moderate complexity Goals: N/A. PT evaluation and 1-2 treatment sessions only for functional mobility training using recommended AD and for HEP instruction. Plan of Care/Treatment Plan: N/A. PT evaluation and 1-2 treatment session only for functional mobility training using recommended AD and for HEP instruction. DISCHARGE RECOMMENDATIONS: [] Home with no services [] [] Home with services [specify] [X] Home with outpatient PT. Home when medically cleared by orthopedic surge on. Outpatient PT to facilitate return to premorbid independent level without on assistive device. [] SNF for continued rehabilitation [] [] [facility] [] [] SNF versus LTC based on ability to participate and progress [] TREATMENT CODE/TIME: 9716 2 x 20 minutes, 9753 0 x 14 minutes beginning at 12:15 PM. Thank you for the opportunity to participate in the care of this patient. Tiffanie Brooks PT, DPT, CLT [facility] [place], [place]
--- NOTE | 2021-05-06 20:57 | ROE_ITS ---
Date of service: 05/06/21 Time of Service: 09:09 Operative Note Operative Note DATE OF PROCEDURE: 05/06/21 PRE-OP DIAGNOSIS: Right Knee Osteoarthritis POST-OP DIAGNOSIS: same PROCEDURE: Right Total Knee Replacement SURGEON: Blane Lainez ACCOUNT CLERK: Jenny Red ANESTHESIA TYPE: Spinal Refer to Anesthesia Record ESTIMATED BLOOD LOSS: 150 PATHOLOGY: none sent TOURNIQUET TIME: 0 COMPLICATIONS: None Patient was transported to: PACU Patient's condition: stable Implants: 1. Depuy Attune Cementless Cruciate Retaining Femoral Component, Size 4 2. Depuy Attune Cementless Rotating Platform Tibial Component, Size 4 3. Depuy Attune 4x7mm CR/RP Poly 4. Depuy Attune Patellar Component, Size 38 Indications: I have seen Kasandra in clinic for symptoms of knee arthritis, confirmed with radiographic findings. She has exhausted nonoperative methods and was having significant limitations in daily function and desired better function and less pain. I discussed the technical details of a knee replacement. I explained the risks of the procedure to include, but not limited to, bleeding, infection, pain, stiffness, fracture, damage to nerves and vessels, damage to muscles and tendons, loosening, need for repeat procedure, blood clot and cardiopulmonary demise. Despite these risks, Kasandra elected to proceed. Findings: There was significant signs of arthritis throughout the knee. Procedure Description: Kasandra was greeted in the preoperative holding area where the correct side was identified and marked. The consent was reviewed with the patient and signed. The history and physical was updated. All questions were answered. Preoperative medications were administered: Acetaminophen 1000mg, Celebrex 400mg, and Gabapentin 300mg. An adductor canal block was then administered by the anesthesia team in the PACU. Yusra was taken back to the operating room. A spinal anesthestic was then administered. The patient was placed into the supine position on the operating room table. A nonsterile tourniquet was placed high onto the leg but only used for cementing. Posts were placed for positioning during the procedure. All bony prominences were well padded. Prophylactic antibiotics in the form of Cefazolin were administered. 1g of Tranxemic Acid was given intravenously within 30 minutes of incision. The right leg was then prepped with Chloraprep and draped in a standard fashion with impervious stockinette. A second prep with Chloraprep was performed prior to application of Iodine impregnated skin protection. A timeout to confirm correct identity, side and site, procedure, allergies, anesthesia, and medical concerns was performed. With the knee in some flexion, a midline incision was made overlying the knee. Full thickness skin flaps were raised once the extensor mechanism was encountered. These were raised medially and laterally. Any bleeding was controlled with electrocautery. Once the extensor mechanism was fully exposed, a medial parapatellar arthrotomy was performed in a flexed position. All bleeding from the arthrotomy and the geniculate arteries was coagulated. A medial subperiosteal peel was performed with electrocautery to the midcoronal plane. The fat pad was removed while keeping the patellar tendon protected. The anterior distal femur synovium was removed for later visualization. The ACL and PCL were resected and the anterior horn of the lateral meniscus was transected. The knee was then flexed with the patella everted. Large osteophytes from the tibia were removed. Large ost eophytes from the femur were removed. Using a step drill, and based on preoperative templating, the femoral canal was entered. This was done with a step drill without any difficulty. The intramed ullary distal femoral cut guide was inserted, set to a 6 degree valgus cut and 8mm cut thickness. The distal femoral cut guide was then held in position and pinned. With the soft tissues protected, the distal cut was performed. This was passed over a few times to ensure a planar cut. I then turned attention to the tibia. The extramedullary guide was placed onto the leg. The distal aspect was slid medial to adjust for position of center of ankle and stay in line with shaft of the tibia. Approximately 5 degrees of posterior slope was kept in the proximal cutting guide. The center of the guide was aligned with the PCL. The stylus was used to assess cut thickness. The medial side, most involved side, was set for a 5mm cut, which corresponded to 8mm laterally. This was then held in position and pinned into place with 2 additional pins and a cross pin for stability. The medial and lateral collateral ligaments were protected and the cut was performed. With this completed, it was assessed and noted to be of appropriate dimensions. The guide was removed. A spacer block was inserted and the knee was brought into extension. The 7mm spacer block provided full extension, without hyperextension and with stability of both the medial and lateral collateral ligaments was assessed. The pins from the femur and the tibia were then removed. The distal femur was then sized. The anterior stylus was placed onto the lateral ridge of the anterior femur. This indicated a size 4 femur. The external rotation of the guide was adjusted to 0 degrees to match the epicondylar axis, perpendicular to Valeria?s line. The 4-in-1 cutting guide was the placed. The posterior medial femur cut was evaluated and appeared of good thickness. The spacer block was inserted underneath the cutting guide and stability was confirmed in 90 degrees of flexion. An judy wing was used to confirm appropriate position of the anterior cut to avoid notching. This cutting guide was ensured to be flush on the cut surface and then pinned into place with headed pins. While protecting the soft tissues, quad tendon, and collateral ligaments, the anterior and posterior cuts were performed with a saw. The central two pins were removed and the posterior and anterior chamfers were cut next. The notch-cutting guide was placed. This was pinned to lateralize the femoral component as much as possible while keeping it flush on the cut surface. This was then pinned into position. A reciprocating saw was used to make the notch cut. A rasp smoothed the cut surfaces. The medial and lateral menisci were removed. A trial femoral component was then inserted, impacted down to the cut surfaces, and the lug holes were drilled. A provisional trial tibial component was placed and the knee was brought through range of motion. There was noted to be excellent extension and flexion. There was no significant instability. The patella was tracking without thumbs. A size 7mm polyethylene component provided the best range of motion and stability with less than 2mm gapping with medial and lateral stress and full extension without significant hyperextension. The tibial cut surface was fully exposed. The tibia was then sized as a 4. The tibia had been previously marked during trialing to correspond to the center of the tibial component to help with rotation. The trial was aligned to this jenny, approximately rotated to the medial 1/3rd of the tibial tubercle. The trial was pinned into place. The tibia was prepared with a reamer and a keel punch and lug holes. The knee was then brought into extension and the patella was measured as 23mm. Using the patellar clamp and cut guide, this was resected to a flat surface with at least 13mm of thickness remaining. The size 38 patella fit the best. This was oriented and then clamped into position. The lugs were drilled. The trial components were removed. The final components were opened on the back table. The periosteal and capsular tissues, especially posteriorly, around the knee were then systematically injected with a periarticular cocktail consisting of 50cc 0.25% Marcaine, 30mg Ketorolac, 20cc of Exparal and 50cc of injectable saline. The knee was thoroughly irrigated with a pulse lavage and dried. Irrisept was also used to irrigate the tissues. On the back table, with the implants opened, the cement was mixed. One batch of high viscosity cement was prepared with vacuum assistance. After the cement was ready a small amount was placed on the cut surface of the patella and the patellar button was clamped into position and held. While the cement was hardening, the cementless knee components were placed. Starting with the tibial component, the tibia was subluxed anteriorly and the lug holes of the component were lined up. The tibia was then impacted with an impactor and mallet until the tibial component was in contact with the tibia. The final polyethylene component was inserted. Then, the femoral component was inserted. The lug holes were aligned and the component was impacted into position. The knee was irrigated with Irrisept chlorhexadine solution. This was allowed to sit in the knee for 3 minutes. After the cement had finally cured, approximately 15min, the clamp was removed from the patella and the knee was taken through range of motion. The patella was tracking with a no-thumbs technique. The trial poly was removed and the real component inserted. The capsule was then reapproximated with a No. 1 Vicryl at multiple locations. The capsule was finally closed with a No. 2 Stratafix, barbed suture. The second dosing of 1g TXA was started. Deep tissues were then reapproximated with 0 Vicryl and 2-0 Vicryl. The skin was closed with a running 3-0 Monocryl in a subcuticular fashion. This was reinforced with skin glue. A Mepilex silver dressing was applied along with a [id number] LUANNE wrap. A CryoCuff was applied. Kasandra was transferred to the hospital bed without difficulty an suffering no apparent complication. Kasandra has a good prognosis. Physical therapy will start today and without restrictions, weight-bearing as tolerated. Aspirin 81mg BID will be used for DVT prophylaxis.
--- NOTE | 2021-05-07 13:38 | W.ANESPOSTOP ---
Postoperative Evaluation Date, Time and Location Date Performed: 05/07/21 Time Performed: 13:38 Patient Location: Day Surgery Unit Vital Signs Most Recent Imported Vital Signs: Most Recent Vital Signs Temp Pulse Resp BP Pulse Ox 36.4 C L 69 18 120/84 95 05/06/21 12:07 05/06/21 12:33 05/06/21 12:31 05/06/21 12:33 05/06/21 12:31 Pain Score Most Recent Pain Score: Most Recent Pain Score Pain Level 0 05/06/21 12:07 Assessment Mental Status: Awake (Alert & Oriented to Patient Baseline) Airway and Respiratory Function: Patent airway with normal (patient baseline) respiratory exam Cardiovascular Function: Hemodynamically Stable Hydration Status: Adequately Hydrated Nausea & Vomiting: No Nausea or Vomiting Pain: Pt. Denies Any Pain Peripheral Nerve Block: Patient did not receive a nerve block
== END 2021-05-06 13:48 | disposition home or self-care (01) ==
PROVIDERS: PCP Family Medicine; Visit Provider Student in an Organized Health Care Education/Training Program
PROC: (CPT 27447; principal; 2021-05-06 07:45)
DX: M17.11 Unilateral primary osteoarthritis, right knee (principal); G47.33 Obstructive sleep apnea (adult) (pediatric)
CPT/HCPCS: 27447; 97162; 97530; J0690; J1885; J2250

== ENCOUNTER 2021-05-19 11:18 | Outpatient (CLI) | payer BC, SELFPAY ==
--- NOTE | 2021-05-19 09:45 | DI.RAD_ITS ---
Exam(s) XR KNEE RT 1V EXAM: XR KNEE RT 1V CLINICAL HISTORY: 1ST POST OP S/P R TKA. TECHNIQUE: 2D digital imaging was performed. COMPARISON: CR XR KNEE RT 1V from 04/29/2021 FINDINGS: Single lateral view reveals satisfactory position alignment components of recently placed prosthesis. No fracture loosening evident on this view. IMPRESSION: DATA REPOSITORY: RADIATION DOSE DELIVERED:
--- NOTE | 2021-05-19 09:45 | DI.RAD_ITS ---
Exam(s) XR STANDING ALIGNMENT EXAM: XR STANDING ALIGNMENT CLINICAL HISTORY: 1ST POST OP R TKA. TECHNIQUE: 2D digital imaging was performed. COMPARISON: CR XR STANDING ALIGNMENT from 04/29/2021 FINDINGS: There has been interval placement of a right knee prosthesis which appears to be in satisfactory posi tion alignment. Degenerative changes and chondrocalcinosis are noted in the opposite-left knee. Mild joint space narrowing in both hips noted. Ankles unremarkable. No osseous lesions. Sacroiliac joints appear unremarkable. Bone density is age-appropriate. IMPRESSION: DATA REPOSITORY: RADIATION DOSE DELIVERED:
== END 2021-05-19 11:19 | disposition home or self-care (01) ==
LOC: DIORS 11:19
PROVIDERS: PCP Family Medicine; Visit Provider Student in an Organized Health Care Education/Training Program
DX: Z96.651 Presence of right artificial knee joint (principal); Z47.1 Aftercare following joint replacement surgery
CPT/HCPCS: 73560; 77073

== ENCOUNTER 2021-06-02 15:43 | Outpatient (REF) | payer BC, SELFPAY ==
[2021-06-02 16:25] LABS: Clarity Cloudy; Mononuclear Cells 96 %; Nucleated Cells 834 uL (0); Polynuclear Cells 4 %
== END 2021-06-02 15:44 | disposition home or self-care (01) ==
LOC: LBN 15:43
PROVIDERS: PCP Family Medicine; Visit Provider Student in an Organized Health Care Education/Training Program
DX: T84.84XA Pain due to internal orthopedic prosthetic devices, implants and grafts, initial encounter (principal); Z96.651 Presence of right artificial knee joint
CPT/HCPCS: 87070; 87205; 89051

== ENCOUNTER 2021-07-24 13:40 | Outpatient (REF) | payer BC, SELFPAY ==
[2021-07-24 19:34] LABS: Bilirubin Negative (Negative); Blood Small (Negative); Clarity Sl Cloudy (Clear); Glucose Negative (Negative); Ketones Negative (Negative); Leukocyte Esterase Negative (Negative); Nitrite Negative (Negative); Urobilinogen 0.2 EU/dL (Up TO 0.2)
[2021-07-24 19:51] LABS: Bacteria Moderate HPF (Negative); C & S Indicated? Yes; Casts Negative LPF (Negative); Crystals Negative HPF (Negative); Epithelial Cells Few HPF (Negative); Mucus Negative (Negative)
== END 2021-07-24 13:41 | disposition home or self-care (01) ==
LOC: NCHCN 13:40
PROVIDERS: PCP Family Medicine; Visit Provider Family Medicine
DX: R30.0 Dysuria (principal); N32.89 Other specified disorders of bladder; R82.998 Other abnormal findings in urine
CPT/HCPCS: 87077; 81003; 81015; 87086; 87186

== ENCOUNTER 2021-10-27 09:44 | Outpatient (CLI) | payer BC, SELFPAY ==
--- NOTE | 2021-10-27 09:00 | DI.RAD_ITS ---
Exam(s) XR KNEE RT 3V AP,LAT,KATERINE EXAM: XR KNEE RT 3V AP,LAT,KATERINE CLINICAL HISTORY: s/p R TKA. TECHNIQUE: 2D digital imaging was performed of the right knee. Three views obtained. AP, lateral an d PA tunnel views were obtained. COMPARISON: CR XR KNEE RT 3V AP,LAT,KATERINE from 09/06/2020 CR XR KNEE RT 1V from 05/19/2021 FINDINGS: BONES: No acute fracture is present. No bony destructive lesion is seen. JOINTS: Stable postsurgical changes of a right total knee replacement. There is a small joint effusi on. SOFT TISSUE: Normal. IMPRESSION: Stable right TKR. DATA REPOSITORY: RADIATION DOSE DELIVERED:
== END 2021-10-27 09:45 | disposition home or self-care (01) ==
LOC: DIORS 09:44
PROVIDERS: PCP Family Medicine; Referring Provider Family Medicine; Visit Provider Student in an Organized Health Care Education/Training Program
DX: Z96.651 Presence of right artificial knee joint (principal); M25.461 Effusion, right knee; Z47.1 Aftercare following joint replacement surgery
CPT/HCPCS: 73562

== ENCOUNTER 2022-02-02 14:12 | Outpatient (CLI) | payer BC, SELFPAY ==
--- NOTE | 2022-02-02 14:00 | DI.RAD_ITS ---
Exam(s) XR KNEE RT 2V AP,LAT EXAM: XR KNEE RT 2V AP,LAT CLINICAL HISTORY: continued R knee pain. TECHNIQUE: 2D digital imaging was performed. Two images were obtained. AP and lateral views were ob tained. COMPARISON: CR XR KNEE RT 3V AP,LAT,KATERINE from 10/27/2021 FINDINGS: BONES: There are stable post operative changes present. No fracture or dislocation. JOINTS: The orthopedic hardware is in good position. There is a small joint effusion. SOFT TISSUE: Normal. IMPRESSION: 1. Stable postoperative changes. 2. Small joint effusion. DATA REPOSITORY: RADIATION DOSE DELIVERED:
== END 2022-02-02 14:13 | disposition home or self-care (01) ==
LOC: DIORS 14:12
PROVIDERS: PCP Family Medicine; Referring Provider Family Medicine; Visit Provider Student in an Organized Health Care Education/Training Program
DX: M25.561 Pain in right knee (principal); M25.461 Effusion, right knee; T84.84XA Pain due to internal orthopedic prosthetic devices, implants and grafts, initial encounter; Z96.651 Presence of right artificial knee joint
CPT/HCPCS: 73560

== ENCOUNTER 2022-03-09 06:58 | Day surgery (SDC) | payer BC, SELFPAY ==
--- NOTE | 2022-03-09 06:38 | W.COLOREPORT ---
Colonoscopy Report Date of procedure: 03/09/22 Pre-op diagnosis general: Colon Cancer Screening Post-op diagnosis procedure note: other (polyps) Procedure: Colonoscopy with polypectomy Surgeon: Carly Reyes Anesthesia Type: General:No Airway Estimated blood loss (mL): 3 Pathology: other (transverse and descending colon polyp) Complications: None Disposition: same day Indications: The patient? is a pleasant ? 61-year-old female who is here to discuss another screening colonoscopy. ? She denies any changes in bowel habits, melena, hematochezia, unintentional weight loss or family history of colon cancer.? The procedure and risks were discussed.? The prep was reviewed in detail.? Risks, benefits and complications have been reviewed. Complications include but are not limited to bleeding, pain, perforation, missed small lesion/polyp, sore throat, aspiration and adverse reaction to the medications. Questions were entertained and answered to their satisfaction and they wished to proceed. No guarantees were given or implied. Prep: Miralax/Dulcolax Procedure Start Time: 08:12 Procedure End Time: 08:40 Retraction Time: 11 minutes Findings: 2 small sessile polyps Procedure Description: After informed consent was obtained the patient was taken to the procedure room and placed in a left decubitous position. Monitors were applied and a time out was done. The patients name, date of , procedure, allergies to medications and metal in their body was reviewed. The patient was then sedated. Once sedated and comfortable a rectal exam was done. External exam was normal. Internal exam revealed a normal sphincter tone and no palpable masses. The scope was then introduced and retro-flexed. No internal hemorrhoids, polyps or masses were identified on retro-flexion. The scope was then advanced to the cecum without difficulty. The ileocecal vlave and appendiceal orifice were identified. The prep was good. The scope was then slowly retracted over 11 minutes back into the rectum. Polyps were removed with cold forceps in the transverse colon x1 and descending colon x1. There was no diverticulosis noted. The scope was removed and the patient was woken up and taken back to Same day surgery in stable condition. The patient tolerated the procedure well and there were no immediate complications.
--- NOTE | 2022-03-09 06:38 | W.PM.DSUDISC ---
Discharge Plan Disposition Patient Disposition: HOME Condition: Good Discharge Details Reason For Visit: colonoscopy Attending Provider: Carly Reyes Primary Care Provider: Nataliya Veliz Home Meds and New Rx's Prescriptions: Continued turmeric root extract 500 mg capsule 500 mg PO DAILY pantoprazole [Protonix] 40 mg tablet,delayed release (DR/EC) 40 mg PO DAILY diclofenac sodium [Voltaren Arthritis Pain] 1 % gel 2 g topical QID PRN Rx Instructions: apply to single elbow, wrist or hand; for hand includes palm/fingers/back of hand Cosentyx 150 mg/mL syringe 150 mg subcut Q4W naproxen 250 mg tablet 500 mg PO BID multivitamin [Daily Vitamin] 1 EACH tablet 1 tab PO DAILY flaxseed oil 1,000 MG capsule 2,000 mg PO DAILY lysine HCl 1,000 MG tablet 1,000 mg PO TID PRN melatonin-pyridoxine (vit B6) 3-2 mg tablet 2 tab PO HS Label Comments: Essential Sleep 6-10mg Melatonin aj triamcinolone acetonide 0.1 % ointment 1 applic Topical BID PRN (Reason: rash) Qty: 80 3RF duloxetine 30 mg capsule,delayed release(DR/EC) 30 mg PO BID Qty: 180 6RF estradiol [Vagifem] 10 mcg tablet 10 mcg VG 2x/week Qty: 30 12RF estradiol [Estrace] 0.01 % (0.1 mg/gram) cream 1 appful VG DAILY Qty: 127.5 4RF Rx Instructions: 3 tubes acetaminophen 500 mg tablet 1,000 mg PO Q8H PRN (Reason: pain) Qty: 90 3RF Discontinued bisacodyl [Dulcolax (bisacodyl)] 5 mg tablet,delayed release (DR/EC) 5 mg PO ONCE Qty: 4 0RF Rx Instructions: Take according to provider's instructions for colonoscopy prep. polyethylene glycol 3350 17 gram/dose powder 17 g PO ONCE Qty: 238 0RF Rx Instructions: To be taken as directed by prescriber's office for colonoscopy prep. Discharge Instructions Instructions: Colorectal Polyps (DC) Additional Instructions: Findings: 2 small polyps Follow up: will depend on final pathology results Please call if you develop: fevers >101.5 Nausea or Vomiting Abdominal pain that is not transient Rectal bleeding that is more then a tbsp A hard abdomen and inability to pass gas DAY SURGERY UNIT POST ENDOSCOPY INSTRUCTIONS Instructions for everyone who is given Anesthesia: For your safety, please do the following for the next 24 Hours: a. Do not drive or operate dangerous equipment b. Do not drink alcohol beverages or use any recreational drugs for the first 24 hours or while taking pain medications. The medications in your body may have a reaction that can be dangerous. c. Do not make any important decisions or sign any important papers 1. Generally there are no restrictions on your activity after a day or so has gone by, but you may feel a bit fatigued for a few days. 2. After you arrive home you may have a light meal and return to a normal diet as you can tolerate it without feeling sick to your stomach. 3. After surgery, you may feel pain or discomfort. This should be only transient, but if it persists please contact your doctor. 4. If there are any questions regarding the findings of your procedure, please feel free to contact your doctor. 6. If you are unable to contact your doctor with a problem, contact the hospital at [phone]. 7. Continue all your regular medications unless directed otherwise. I understand the above instructions and have no questions. Signature of Patient or Responsible Adult Escort Date/Time Name of Responsible Adult Escort Signature of Nurse Date/Time Activity:: Activity as Tolerated Diet:: As Tolerated Discharge Orders Discharge Orders: Discharge Order (Routine); Ordered 03/09/22 Ordered By: Carly Reyes
[2022-03-09 07:11] VITALS: BP 113/91; PULSE 79; RESP 16; TEMP 36.4; O2SAT 97
--- NOTE | 2022-03-09 07:40 | ANES.PREOP_ITS ---
General Info Date of Service Date Performed: 03/09/22 Height: 5 ft 3 in Weight: 60.1 kg Body Mass Index (BMI): 23.4 Surgical Procedure: Operation Date: 03/09/22 09:05 Proposed Procedure Side Surgeon omaira Reyes MD Meds Allergies and Home Medications Allergies Allergy/AdvReac Type Severity Reaction Status Date / Time doxycycline Allergy Intermediate Rash Verified 03/09/22 07:27 povidone-iodine Allergy Mild rash Verified 03/09/22 07:27 [From Betadine] phenylbutazone AdvReac WANG's Verified 03/09/22 07:27 Home Medication Medication Instructions Recorded flaxseed oil 1,000 mg capsule 2,000 mg PO DAILY 02/09/13 multivitamin (Daily Vitamin tablet) 1 tab PO DAILY 02/09/13 lysine HCl 1,000 mg tablet 1,000 mg PO TID PRN 01/15/15 pantoprazole 40 mg tablet,delayed 40 mg PO DAILY 11/08/20 release (Protonix) melatonin 3 mg-pyridoxine (vitamin 2 tab PO HS 01/09/21 B6) 2 mg tablet turmeric root extract 500 mg 500 mg PO DAILY 01/09/21 capsule triamcinolone acetonide 0.1 % 1 applic topical BID PRN rash #80 01/31/21 topical ointment grams duloxetine 30 mg capsule,delayed 30 mg PO BID #180 caps 04/14/21 release diclofenac sodium 1 % topical gel 2 g topical QID PRN 04/29/21 (Voltaren Arthritis Pain) acetaminophen 500 mg tablet 1,000 mg PO Q8H PRN pain #90 tabs 05/06/21 secukinumab 150 mg/mL subcutaneous 150 mg subcut Q4W 07/28/21 syringe (Cosentyx) estradiol 10 mcg vaginal tablet 10 mcg vaginal 2x/week #30 tabs 11/07/21 (Vagifem) estradiol 0.01% (0.1 mg/gram) 1 appful vaginal DAILY #127.5 grams 02/04/22 vaginal cream (Estrace) bisacodyl 5 mg tablet,delayed 5 mg PO ONCE #4 tabs 02/17/22 release (Dulcolax (bisacodyl)) naproxen 250 mg tablet 500 mg PO BID 02/17/22 polyethylene glycol 3350 17 17 g PO ONCE #238 grams 02/17/22 gram/dose oral powder Current Visit Medications: Current Medications Generic Name Dose Route Start Last Admin Trade Name Freq PRN Reason Stop Dose Admin Hyoscyamine Sulfate 0.125 mg 03/09/22 06:39 Hyoscyamine 0.125 Mg Sl/Oral/Chew SL DIRECTED PRN Hyoscyamine Sulfate 0.125 mg 03/09/22 06:40 Hyoscyamine 0.125 Mg Sl/Oral/Chew SL DIRECTED PRN Ondansetron HCl 4 mg 03/09/22 06:39 Ondansetron 4 Mg/2 Ml Vial IVP Q4H PRN PRN Nausea / Vomiting Ondansetron HCl 4 mg 03/09/22 06:40 Ondansetron 4 Mg/2 Ml Vial IVP Q4H PRN PRN Nausea / Vomiting PFSH Active Problems Active Problems: Problem Status Onset Code Varicose veins of lower extremity I83.90 Sun-damaged skin 12/24/16 L57.8 Psoriatic arthritis 01/15/15 L40.50 Atypical mole 12/24/16 D22.9 Annual physical exam 04/04/15 Z00.00 Melanoma Spondylolisthesis M43.10 Skin irritation R23.8 Palpitations R00.2 Mammographic breast lesion 01/31/13 R92.8 Incomplete emptying of bladder R33.9 Hypercalcemia 07/17/13 E83.52 Grief at loss of child 10/01/15 F43.21, Z63.4 Enlarged lymph node 09/01/16 R59.9 Closed fracture of phalanx of finger 02/24/08 S62.609A Insomnia G47.00 ADITYA (obstructive sleep apnea) ~07/2019 G47.33 Skin lesion L98.9 Dysphagia R13.10 Dysuria R30.0 Palpitation R00.2 Hip arthritis M16.10 Femoroacetabular impingement of both hips M25.851, M25.852 Arthritis of right hip M16.11 Splinter T14.8XXA Xerostomia K11.7 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 Throat clearing R68.89 Cervical pain M54.2 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 Z96.651 Headache R51.9 Painful total knee replacement, right T84.84XA, Z96.651 Encounter for screening colonoscopy Z12.11 Hypertension I10 COVID-19 ~10/2021 U07.1 Arthritis of left knee M17.12 Chondrocalcinosis of left knee M11.262 Crepitus of joint of right knee M23.8X1 Medical History Medical History Abnormal laboratory test result (07/17/13) elevated mcv [place] on [place] [facility] [place] Cat 4 Closed fracture of phalanx of finger 02/24/08 right middle distal phalanx Grief at loss of child (10/01/15) Hypercalcemia 07/17/13 Incomplete emptying of bladder Palpitations ? secondary to Arthrotec Pt. had holter monitor Parathyroid adenoma Skin irritation reaction to pool chemicals Spondylolisthesis LBP; L5-S1 Medical History Comments:: 03/09/22 - Pt reports she has 3 little bump on her tongue, present 10 weeks. Not painful but pt concerned. She is seeing her PCP 03/10 for evaluation. Surgical History Surgical History BUNIONECTOMY 06/28; ROSALINDA Colonoscopy - MAC (03/04/12) History of varicose vein stripping Hx of total knee replacement 04/2021 Open Carpal Tunnel release (~1982) RIGHT Parathyroidectomy (06/02/17) S/P abdominal hysterectomy 06/14/99 ovary intact; fibroid disease S/P meniscectomy left-2006; right-2009 S/P DELMY (total abdominal hysterectomy) Status post fusion of joint of finger Right index and middle DIP joints Tobacco Smoking/Tobacco Use Status: Never Passive smoking exposure: No Alcohol Alcohol Intake: current Alcohol intake frequency: a few times a month Alcohol type: wine and hard liquor Substance Use Substance use: Never Substance use type: does not use Counseling provided: none Vital Signs and Lab Results Vital Signs Most Recent Vital Signs in EMR: Most Recent Vital Signs Temp Pulse Resp BP Pulse Ox 36.4 C L 79 16 113/91 H 97 03/09/22 07:11 03/09/22 07:11 03/09/22 07:11 03/09/22 07:11 03/09/22 07:11 Lab Results Blood Type / Crossmatch: No Data to Display Complete Blood Count: No Data to Display Complete Metabolic Panel: No Data to Display Liver Function Panel: No Data to Display Coagulation Panel: No Data to Display Cardiac Panel: No Data to Display Arterial Blood Gas: No Data to Display Venous Blood Gas: No Data to Display Pancreas Panel: No Data to Display Thyroid Panel: No Data to Display Infectious Disease: No Data to Display Blood Cultures: No Data to Display Toxicology Panel: No Data to Display Imaging and Studies Imaging and Studies Study information below may be from another EMR and interpreted by another provider. Please see original notes in EMR for more complete details. Other Study Summary:: Exam Type: HOLTER MONITOR APPLICATION Reason for Test: palpitation Patient Location: O Conclusion This is a 48-hour monitor order for indication of palpitations. ???The patient was in normal sinus rhythm for majority of the recording with an average heart rate of 86 bpm. ???There were 3 episodes of supraventricular tachycardia with the longest lasting 4 beats. ???There were 0 episodes of ventricular tachycardia and 3 total PVCs. ???There were no episodes of atrial fibrillation, no pauses greater than 3 seconds and no evidence of high degree heart block. ???There were no patient triggered events. <Electronically signed by HILARIA WILDER MD in [place]> E-Sign Date: 06/17/20 E-Sign Time: 928 Anesthesia Assessment and Plan Anesthesia History Personal History: No History of Anesthesia Complications Family History: No Family History of Anesthesia Complications Exercise Tolerance Exercise Tolerance: Metabolic Equivalents>4 Pertinent Negatives Pertinent Negatives: No Symptoms of GERD, No Major Cardiovascular Symptoms or Complaints, No Major Pulmonary Symptoms or Complaints and No History of CVA/TIA Cardiac & Pulmonary Exam Cardiac Exam: Normal S1/S2 Heart Sounds Pulmonary Exam: Clear Bilateral Breath Sounds Implantable Cardiac Device Does patient have a Pacemaker or an ICD?: No Airway Exam Known Difficult Airway: No Mallampati Class: 1 Mouth Opening: Normal (> 3cm) Thyromental Distance: Greater than 3 cm Neck Range of Motion: Full ROM Neck Circumference: Normal Teeth Condition: Normal Dentition Airway Comments: Multiple crowns in back ASA Classification ASA Score: ASA 2 Emergency Case?: No NPO Status NPO Status: NPO Clears >2 hours, Solids >8 hours Anesthesia Plan Resuscitation Status: Full Code Anesthesia Technique: General Anesthesia Airway Planned: Natural Airway Monitors Used: Standard Monitors
[2022-03-09] MEDS: Lactated Ringers 1,000 ML 80 ML IV (07:54)
[2022-03-09 08:05] VITALS: BMI 23.4
--- NOTE | 2022-03-09 08:30 | BOWEL_PTH ---
PATIENT: Kasandra Carr LOC: [facility] U#:[id number] AGE/SX: 61/F ROOM: RE03/09/[address]: Carly Reyes MD : 1960 BED: DIS: 03/09/2022 SPEC #: [id number] RECD: 03/09/22 12:23 STATUS: DEJAN REQ #: [id number] CELINA: 03/09/22 08:[address]: Carly Reyes DEPT: Surgical Specimen RECD BY: Susanne Gonzalez ENTERED: 03/09/22 12:23 SP TYPE: Bowel OTHR DR: Nataliya Veliz MD, DC Tissues: 1 - BIOPSY BOWEL 2 - BIOPSY BOWEL Procedures: GROSS AND MICRO LEVEL 4 Comments: [id number]
[2022-03-09 08:47] VITALS: BP 117/88; PULSE 89; RESP 16; TEMP 36.2; O2SAT 97
--- NOTE | 2022-03-09 08:54 | W.ANESPOSTOP ---
Postoperative Evaluation Date, Time and Location Date Performed: 03/09/22 Time Performed: 08:55 Patient Location: Day Surgery Unit Vital Signs Most Recent Imported Vital Signs: Most Recent Vital Signs Temp Pulse Resp BP Pulse Ox 36.2 C L 89 16 117/88 97 03/09/22 08:47 03/09/22 08:47 03/09/22 08:47 03/09/22 08:47 03/09/22 08:47 Pain Score Most Recent Pain Score: Most Recent Pain Score Pain Level 0 03/09/22 08:47 Assessment Mental Status: Awake (Alert & Oriented to Patient Baseline) Airway and Respiratory Function: Patent airway with normal (patient baseline) respiratory exam Cardiovascular Function: Hemodynamically Stable Hydration Status: Adequately Hydrated Nausea & Vomiting: No Nausea or Vomiting Pain: Pt. Denies Any Pain Peripheral Nerve Block: Patient did not receive a nerve block
[2022-03-09 09:19] VITALS: BP 124/89; PULSE 67; RESP 16; TEMP 36.1; O2SAT 99
== END 2022-03-09 09:40 | disposition home or self-care (01) ==
PROVIDERS: PCP Family Medicine; Visit Provider Surgery
PROC: 0DJD8ZZ Inspection of Lower Intestinal Tract, Via Natural or Artificial Opening Endoscopic (ICD-10-PCS; CPT 45378; principal; 2022-03-09 09:00)
DX: Z12.11 Encounter for screening for malignant neoplasm of colon (principal); K63.5 Polyp of colon
CPT/HCPCS: 45380; 88305

== ENCOUNTER 2022-03-23 09:45 | Outpatient (REF) | payer BC, SELFPAY ==
[2022-03-23 13:32] LABS: C Diff PCR Negative (Negative)
== END 2022-03-23 09:46 | disposition home or self-care (01) ==
LOC: LBN 09:45
PROVIDERS: PCP Family Medicine; Visit Provider Family Medicine
DX: R19.7 Diarrhea, unspecified (principal)
CPT/HCPCS: 87329; 87493

== ENCOUNTER 2022-03-31 16:57 | Outpatient (REF) | payer BC, SELFPAY ==
[2022-03-31 23:16] LABS: Campylobacter PCR Negative (Negative); Salmonella PCR Negative (Negative); Shiga Toxin PCR Negative (Negative); Shigella/Enteroinvasive Ecoli Negative (Negative)
== END 2022-03-31 16:58 | disposition home or self-care (01) ==
LOC: LBN 16:57
PROVIDERS: PCP Family Medicine; Visit Provider Family Medicine
DX: R19.7 Diarrhea, unspecified (principal)
CPT/HCPCS: 87505

== ENCOUNTER 2022-04-09 04:02 | Outpatient (CLI) | payer BC, SELFPAY ==
[2022-04-09 13:10] LABS: Abs Immature Grans 0.01 10^3/uL (0.0-0.06); Absolute Basophil Count 0.07 10^3/uL (0.0-0.2); Absolute Eosinophil Count 0.12 10^3/uL (0.0-0.7); Absolute Lymphocyte Count 1.66 10^3/uL (1.2-3.4); Absolute Monocyte Count 0.32 10^3/uL (0.1-0.8); Absolute Neutrophil Count 2.91 10^3/uL (1.2-6.7); Basophils % 1.4; Eosinophils % 2.4; HCT 41.2 % (36.0-46.0); HGB 13.8 g/dL (11.2-15.7); Immature Grans % 0.2; Lymphocytes % 32.6; MCH 31.4 pg (27.0-33.0); MCHC 33.5 % (32.0-36.0); MCV 94 fL (80-95); MPV 9.1 fL (8.0-11.0); Monocytes % 6.3; Neutrophils % 57.1; Platelet Count 256 10^3/uL (130-400); RBC 4.39 10^6/uL (3.93-5.22); RDW 12.4 % (11.7-14.6); RDW-SD 43.1 fL; WBC 5.09 10^3/uL (4.4-10.8)
[2022-04-09 13:32] LABS: ESR 13 mm/hr (0-30)
[2022-04-09 13:58] LABS: ALT 36 U/L (14-59); AST 28 U/L (15-37); Albumin 3.9 g/dL (3.4-5.0); Alkaline Phosphatase 82 U/L (46-116); Anion Gap 7.6 mmol/L (3-11); BUN 22 mg/dL (7-18); Bilirubin, Total 0.5 mg/dL (0.2-1.0); CO2 26.4 mmol/L (21.0-32.0); CREATININE 0.9 mg/dL (0.55-1.02); Calcium 9.7 mg/dL (8.5-10.1); Chloride 104 mmol/L (98-107); Estimated GFR 72.28 (mL/min/1.73m2); Glucose 108 mg/dL (74-106); Potassium 3.9 mmol/L (3.5-5.1); Sodium 138 mmol/L (136-145); Total Protein 7.2 g/dL (6.4-8.2)
[2022-04-09 21:48] LABS: CRP, High Sensitivity 2.65 mg/L (See Note)
[2022-04-13 12:02] LABS: IgA 134 mg/dL (85-499); Interpretation (See Note); Tissue Transglutaminase IgA <1.2 U/mL (<4.0)
== END 2022-04-09 04:03 | disposition home or self-care (01) ==
LOC: LBO 04:02
PROVIDERS: PCP Family Medicine; Visit Provider Family Medicine
DX: L40.50 Arthropathic psoriasis, unspecified (principal); R19.7 Diarrhea, unspecified
CPT/HCPCS: 36415; 80053; 82784; 83516; 85652; 86141; 85025

== ENCOUNTER 2022-04-09 13:29 | Outpatient (REF) | payer BC, SELFPAY ==
[2022-04-09 15:05] LABS: Lab Add On Test DONE
[2022-04-11 16:16] LABS: Calprotectin 282 mcg/g
[2022-04-13 12:47] LABS: Pancreatic Elastase, F <40 mcg/g
== END 2022-04-09 13:30 | disposition home or self-care (01) ==
LOC: LBN 13:29
PROVIDERS: PCP Family Medicine; Visit Provider Family Medicine
DX: R19.7 Diarrhea, unspecified (principal)
CPT/HCPCS: 82656; 83993

== ENCOUNTER → 2022-04-20 01:33 | Outpatient (CLI) | payer BC, SELFPAY ==
--- NOTE | 2022-04-20 07:45 | DI.CT_ITS ---
Exam(s) CT ABDOMEN PELVIS W EXAM: CT ABDOMEN PELVIS W CLINICAL HISTORY: pancreatic insufficiency, diarrhea,k86.89,r19.7. TECHNIQUE: Imaging Protocol: Axial computed tomography images with coronal and sagittal reformatted images were created and reviewed CONTRAST MATERIAL: Intravenous: Omnipaque 100cc Oral: Yes COMPARISON: No exams were available for comparison FINDINGS: VISUALIZED LUNG BASES: Mild increased markings in the posterior basal segment of both lower lobes but no confluent infiltrates nor pleural effusions.. ABDOMEN: There is no ascites. LIVER: There is some circumferential density around the liver approximately 6 millimeters thick with average Hounsfield units 58 HU. This has appearance of subcapsular hematoma-subacute. There is also solitary subcapsular lesion in the right hepatic lobe which measures 2.1 cc by 2.2 cm wide by 1.4 cm AP. On this single right and study there appears to be some non uniform nodular enhancement implyin g that this probably is a benign cavernous hemangioma. No other focal hepatic lesions evident. GALLBLADDER/BILIARY: No obvious gallbladder pathology. CBD is not dilated. PANCREAS: No evidence of pancreatic mass nor dilatation of the pancreatic duct. No evidence of pancr eatic atrophy. SPLEEN: Spleen is not enlarged. No obvious intrasplenic lesions. Splenic and portal veins are paten t. ADRENALS: There are no significant adrenal masses. KIDNEYS:No cysts evident. No solid renal masses. No calculi nor hydronephrosis.. ABDOMINAL AORTA: Abdominal aorta is not enlarged. LYMPH NODES:There is no retroperitoneal nor paraaortic adenopathy. ABDOMINAL WALL: No evidence of significant anterior abdominal wall nor inguinal hernia. GI: There is no evidence of bowel obstruction, free air, nor abscess. PELVIS: GI: No evidence of appendicitis.No evidence of sigmoid diverticulitis. LYMPH NODES: There is no intrapelvic nor inguinal adenopathy. REPRODUCTIVE: Uterus is atrophic or surgically absent. There are no abnormal adnexal masses. No ruben e fluid. URINARY BLADDER: No calculi nor obvious masses evident OSSEOUS: No significant osseous lesions. Multilevel disc space narrowing in the lumbar spine and there is also approximately 1 cm anterior lis thesis of L5 upon S1 due to bilateral pars interarticularis defects at L5 level. IMPRESSION: 1. There is subcapsular 6 millimeter thick density around the right hepatic lobe which is probably an element of subcapsular hematoma. 2. There is a solitary subcapsular lesion in the right hepatic lobe chest appears for probable benign cavernous hemangioma which measures 2.2 x 2.1 cm. 3. Pancreas appears unremarkable and is not atrophic. Requisition states ???pancreatic insufficiency ???. 4. Evidence of previous hysterectomy. No bowel obstruction. No free fluid. No abscess. RADIATION DOSE DELIVERED: 638.56mGy.cm Total DLP DATA REPOSITORY: All CT scans at this facility are submitted to the National Radiology Data Registry (NRDR) Dose Index Registry (DIR) with the [employer] ([employer]). RADIATION OPTIMIZATION: All CT scans at this facility use at least one of these dose optimization te chniques: automated exposure control; mA and/or kV adjustment per patient size (includes targeted exa ms where dose is matched to clinical indication); or iterative reconstruction.
[2022-04-20] MEDS: Normal Saline Flush 10 ML SYR IVP (10:41)
[2022-04-20] MEDS: Barium Sulfate 2% W/V-Berry Smoothie 450 ML BTL PO ×2 (10:41→10:42)
[2022-04-20] MEDS: Omnipaque 350 MG/ML 500 ML BTL-Imaging package IJ (10:42)
== END ==
PROVIDERS: PCP Family Medicine; Visit Provider Family Medicine
DX: K86.89 Other specified diseases of pancreas (principal); R19.7 Diarrhea, unspecified
CPT/HCPCS: 74177

== ENCOUNTER 2022-04-30 03:24 | Outpatient (CLI) | payer BC, SELFPAY ==
[2022-04-30 13:14] LABS: HCT 41.4 % (36.0-46.0); HGB 14.1 g/dL (11.2-15.7); MCH 31.8 pg (27.0-33.0); MCHC 34.1 % (32.0-36.0); MCV 93 fL (80-95); MPV 9.1 fL (8.0-11.0); Platelet Count 288 10^3/uL (130-400); RBC 4.44 10^6/uL (3.93-5.22); RDW 12.8 % (11.7-14.6); RDW-SD 43.7 fL; WBC 7.25 10^3/uL (4.4-10.8)
[2022-04-30 14:12] LABS: Anion Gap 11.1 mmol/L (3-11); BUN 17 mg/dL (7-18); CO2 27.9 mmol/L (21.0-32.0); CREATININE 0.9 mg/dL (0.55-1.02); Calcium 9.7 mg/dL (8.5-10.1); Chloride 102 mmol/L (98-107); Estimated GFR 72.28 (mL/min/1.73m2); Glucose 88 mg/dL (74-106); Potassium 4.1 mmol/L (3.5-5.1); Sodium 141 mmol/L (136-145)
== END 2022-04-30 03:25 | disposition home or self-care (01) ==
LOC: LBO 03:25
PROVIDERS: PCP Family Medicine; Visit Provider Student in an Organized Health Care Education/Training Program
DX: M17.12 Unilateral primary osteoarthritis, left knee (principal); M23.8X1 Other internal derangements of right knee; Z01.818 Encounter for other preprocedural examination; T84.032A Mechanical loosening of internal right knee prosthetic joint, initial encounter
CPT/HCPCS: 36415; 80048; 85027; 86850; 86900; 86901

== ENCOUNTER → 2022-06-01 01:17 | Outpatient (CLI) | payer BC, SELFPAY ==
--- NOTE | 2022-06-01 07:30 | DI.CT_ITS ---
Exam(s) CT ABDOMEN PELVIS W EXAM: CT ABDOMEN PELVIS W CLINICAL HISTORY: contusion,f/u previous ct scan,s36.112a. TECHNIQUE: Imaging Protocol: Axial computed tomography images with coronal and sagittal reformatted images were created and reviewed CONTRAST MATERIAL: Intravenous: Omnipaque 350 Contrast volume:100 ml Oral: yes COMPARISON: CT CT ABDOMEN PELVIS W from 04/20/2022 FINDINGS: ABDOMEN: Lung Bases: Normal where visualized. Liver: Normal density. No change in small subcapsular collection versus diaphragm seen at the super ior and posterior aspect of the liver. No change low-density lesion at the periphery of the right lo be, likely representing a hemangioma. Gallbladder and biliary tract: No radiodense calculus or dilation. Pancreas: Normal density, no abnormal calcifications or inflammatory process. Spleen: Normal. Kidneys: Normal size, contour and axis. No radiodense stones or obstructive uropathy. No masses seen. Adrenal glands: No masses seen. Abdominal Aorta: Abdominal portion non-dilated. PELVIS: Bladder: Mildly distended. Wall thickening of 9 millimeters.. No calculi.No focal mass. Bowel: No gastric or small bowel distension. Large quantity of stool. No obstruction or bowel wall thickening. Appendix not definitely seen. No evidence of appendicitis.. Peritoneal cavity: No ascites, collection or mesenteric inflammatory response. Bones: Scoliosis and degenerative changes. L5 pars defects. Stable L5-S1 spondylolisthesis. Reproductive organs: Status post hysterectomy. Lymph nodes: Unremarkable. Impression: No change in liver lesion, presumed hemangioma. No change in appearance of previously questioned subcapsular collection. This follows the contour of the diaphragm and may represent diaphragmatic thickening rather than a true subcapsular hematoma.. RADIATION DOSE DELIVERED: 659.2mGy.cm Total DLP DATA REPOSITORY: All CT scans at this facility are submitted to the National Radiology Data Registry (NRDR) Dose Index Registry (DIR) with the [employer] (ACR). RADIATION OPTIMIZATION: All CT scans at this facility use at least one of these dose optimization te chniques: automated exposure control; mA and/or kV adjustment per patient size (includes targeted exa ms where dose is matched to clinical indication); or iterative reconstruction.
[2022-06-01] MEDS: Barium Sulfate 2% W/V-Berry Smoothie 450 ML BTL PO ×2 (08:56→08:57)
[2022-06-01] MEDS: Omnipaque 350 MG/ML 500 ML BTL-Imaging package 100 ML IJ (11:15)
[2022-06-01] MEDS: Normal Saline Flush 10 ML SYR IVP (11:16)
== END ==
PROVIDERS: PCP Family Medicine; Visit Provider Family Medicine
DX: S36.112D Contusion of liver, subsequent encounter (principal); K76.89 Other specified diseases of liver; Z90.710 Acquired absence of both cervix and uterus
CPT/HCPCS: 74177

== ENCOUNTER 2022-06-09 10:27 | Outpatient (CLI) | payer BC, SELFPAY ==
[2022-06-09 12:41] LABS: HCT 43.6 % (36.0-46.0); HGB 14.7 g/dL (11.2-15.7); MCH 31.9 pg (27.0-33.0); MCHC 33.7 % (32.0-36.0); MCV 95 fL (80-95); MPV 9.8 fL (8.0-11.0); Platelet Count 261 10^3/uL (130-400); RBC 4.61 10^6/uL (3.93-5.22); RDW 12.6 % (11.7-14.6); RDW-SD 43.6 fL; WBC 4.84 10^3/uL (4.4-10.8)
[2022-06-09 13:13] LABS: Anion Gap 9.8 mmol/L (3-11); BUN 17 mg/dL (7-18); CO2 26.2 mmol/L (21.0-32.0); CREATININE 0.9 mg/dL (0.55-1.02); Calcium 9.9 mg/dL (8.5-10.1); Chloride 103 mmol/L (98-107); Estimated GFR 72.28 (mL/min/1.73m2); Glucose 98 mg/dL (74-106); Potassium 4.8 mmol/L (3.5-5.1); Sodium 139 mmol/L (136-145)
== END 2022-06-09 10:28 | disposition home or self-care (01) ==
LOC: LOS 10:28
PROVIDERS: PCP Family Medicine; Visit Provider Student in an Organized Health Care Education/Training Program
DX: M17.12 Unilateral primary osteoarthritis, left knee (principal); T84.032A Mechanical loosening of internal right knee prosthetic joint, initial encounter; Z01.818 Encounter for other preprocedural examination
CPT/HCPCS: 36415; 80048; 85027; 86850; 86900; 86901

== ENCOUNTER 2022-06-16 07:30 | Inpatient (IN) | payer BC, SELFPAY ==
[2022-06-16] VITALS (15 sets, daily range): BP systolic 83–140; BP diastolic 53–87; PULSE 57–84; RESP 12–22; TEMP 35.2–36.7; O2SAT 92–99; BMI 22.6
--- NOTE | 2022-06-16 | DI.RAD_ITS ---
Exam(s) XR KNEE RT 2V AP,LAT EXAM: XR KNEE RT 2V AP,LAT CLINICAL HISTORY: s/p revision of tibial component. TECHNIQUE: 2D digital imaging was performed. COMPARISON: CR XR KNEE RT 2V AP,LAT from 02/02/2022 FINDINGS: Two views: Stable position alignment of the components of the prosthesis. No fractures nor loosening evident. IMPRESSION: Satisfactory stable appearance. DATA REPOSITORY: RADIATION DOSE DELIVERED:
--- NOTE | 2022-06-16 06:20 | ANES.PREOP_ITS ---
General Info Date of Service Date Performed: 06/16/22 Height: 5 ft 4 in Weight: 60 kg Body Mass Index (BMI): 22.6 Surgical Procedure: Operation Date: 06/16/22 09:55 Proposed Procedure Side Surgeon p Knee Revision-Tibial Right Blane Lainez MD s Knee Total Arthroplasty-Cemented CR Left Blane Lainez MD Meds Allergies and Home Medications Allergies Allergy/AdvReac Type Severity Reaction Status Date / Time doxycycline Allergy Intermediate Rash Verified 06/16/22 07:59 povidone-iodine Allergy Mild rash Verified 06/16/22 07:59 [From Betadine] phenylbutazone AdvReac WANG's Verified 06/16/22 07:59 Home Medication Medication Instructions Recorded flaxseed oil 1,000 mg capsule 2,000 mg PO DAILY 02/09/13 multivitamin (Daily Vitamin tablet) 1 tab PO DAILY 02/09/13 lysine HCl 1,000 mg tablet 1,000 mg PO TID PRN 01/15/15 melatonin 3 mg-pyridoxine (vitamin 2 tab PO HS 01/09/21 B6) 2 mg tablet turmeric root extract 500 mg 500 mg PO DAILY 01/09/21 capsule triamcinolone acetonide 0.1 % 1 applic topical BID PRN rash #80 01/31/21 topical ointment grams acetaminophen 500 mg tablet 1,000 mg PO Q8H PRN pain #90 tabs 05/06/21 secukinumab 150 mg/mL subcutaneous 150 mg subcut Q4W 07/28/21 syringe (Cosentyx) estradiol 10 mcg vaginal tablet 10 mcg vaginal 2x/week #30 tabs 11/07/21 (Vagifem) estradiol 0.01% (0.1 mg/gram) 1 appful vaginal DAILY #127.5 grams 02/04/22 vaginal cream (Estrace) naproxen 250 mg tablet 500 mg PO BID 02/17/22 duloxetine 30 mg capsule,delayed 30 mg PO BID #180 caps 03/23/22 release colestipol 5 gram oral granules 5 g PO BID #500 grams 04/08/22 diphenoxylate-atropine 2.5 1 tab PO QID #56 tabs 04/08/22 mg-0.025 mg tablet (Lomotil) euzhbx-fibnhnkz-vwnetio 1 cap PO TID #90 caps 04/13/22 6,000-19,000-30,000 unit capsule,delayed rel (Creon) budesonide 9 mg tablet,delayed and 9 mg PO DAILY #90 tabs 06/10/22 extended release diclofenac sodium 1 % topical gel 2 g topical QID PRN pain, mild 06/10/22 (Voltaren Arthritis Pain) #100 grams cyclosporine 0.05 % eye drops in a 1 drp ophthalmic (eye) BID 06/16/22 dropperette (Restasis) Current Visit Medications: Current Medications Generic Name Dose Route Start Last Admin Trade Name Freq PRN Reason Stop Dose Admin Acetaminophen 1,000 mg 06/16/22 06:00 Acetaminophen 500 Mg Tab PO 06/16/22 16:00 PREOP BA Celecoxib 400 mg 06/16/22 06:00 Celecoxib 200 Mg Cap PO 06/16/22 16:00 PREOP BA Gabapentin 300 mg 06/16/22 06:00 Gabapentin 300 Mg Cap PO 06/16/22 16:00 PREOP BA Tranexamic Acid 1,000 mg/ 60 mls @ 360 mls/hr 06/16/22 06:00 Sodium Chloride IVPB 06/16/22 16:00 PREOP BA Tranexamic Acid 1,000 mg/ 60 mls @ 360 mls/hr 06/16/22 06:00 Sodium Chloride IVPB 06/16/22 16:00 DIRECTED BA Ringer's Solution 1,000 mls @ 80 mls/hr 06/16/22 06:00 IV 07/12/22 23:59 INFUSION BA Cefazolin Sodium/Dextrose 2 gm in 50 mls @ 100 mls/hr 06/16/22 06:00 Ancef Duplex IVPB 07/12/22 23:59 PREOP BA IV Miscellaneous Supplies 1 each 06/16/22 06:00 Iv Access IV 07/12/22 23:59 DIRECTED BA Sodium Chloride 0 ml 06/16/22 06:00 Normal Saline Flush 10 Ml Syr IV 07/12/22 23:59 PRN PRN Sodium Chloride 0 ml 06/16/22 06:00 Normal Saline 10 Ml Vial IJ 07/12/22 23:59 DIRECTED PRN Sterile Water 0 ml 06/16/22 06:00 Water,Injection,Sterile 10 Ml Vial IJ 07/12/22 23:59 DIRECTED PRN PFSH Active Problems Active Problems: Problem Status Onset Code Collagenous colitis K52.831 Contusion of liver S36.112A Loose right total knee arthroplasty T84.032A Diarrhea R19.7 Tubular adenoma of colon D12.6 Varicose veins of lower extremity I83.90 Sun-damaged skin 12/24/16 L57.8 Psoriatic arthritis 01/15/15 L40.50 Atypical mole 12/24/16 D22.9 Annual physical exam 04/04/15 Z00.00 Melanoma Spondylolisthesis M43.10 Skin irritation R23.8 Palpitations R00.2 Mammographic breast lesion 01/31/13 R92.8 Incomplete emptying of bladder R33.9 Hypercalcemia 07/17/13 E83.52 Grief at loss of child 10/01/15 F43.21, Z63.4 Enlarged lymph node 09/01/16 R59.9 Closed fracture of phalanx of finger 02/24/08 S62.609A Insomnia G47.00 ADITYA (obstructive sleep apnea) ~07/2019 G47.33 Skin lesion L98.9 Dysphagia R13.10 Dysuria R30.0 Palpitation R00.2 Hip arthritis M16.10 Femoroacetabular impingement of both hips M25.851, M25.852 Arthritis of right hip M16.11 Splinter T14.8XXA Xerostomia K11.7 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 Throat clearing R68.89 Cervical pain M54.2 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 Z96.651 Headache R51.9 Painful total knee replacement, right T84.84XA, Z96.651 Encounter for screening colonoscopy Z12.11 Hypertension I10 COVID-19 ~10/2021 U07.1 Arthritis of left knee M17.12 Chondrocalcinosis of left knee M11.262 Crepitus of joint of right knee M23.8X1 Medical History Medical History (Updated 06/16/22 @ 07:59 by Sandy Albrecht) Abnormal laboratory test result (07/17/13) elevated mcv Breast mass seen on mammogram 01/31/13 [facility] [place]; left breast mass Cat 4 Closed fracture of phalanx of finger 02/24/08 right middle distal phalanx Grief at loss of child (04/19/16) Hypercalcemia 07/17/13 Incomplete emptying of bladder Palpitations ? secondary to Arthrotec Pt. had holter monitor Parathyroid adenoma Skin irritation reaction to pool chemicals Spondylolisthesis LBP; L5-S1 Medical History Comments:: 03/09/22 - Pt reports she has 3 little bump on her tongue, present 10 weeks. Not painful but pt concerned. She is seeing her PCP 03/10 for evaluation. Surgical History Surgical History BUNIONECTOMY 06/28; ROSALINDA Colonoscopy - MAC (03/04/12) 02/2022 History of varicose vein stripping Hx of total knee replacement 04/2021 Open Carpal Tunnel release (~1982) RIGHT Parathyroidectomy (06/02/17) S/P abdominal hysterectomy 06/14/99 ovary intact; fibroid disease S/P meniscectomy left-2006; right-2009 S/P DELMY (total abdominal hysterectomy) Status post fusion of joint of finger Right index and middle DIP joints Tobacco Smoking/Tobacco Use Status: Never Passive smoking exposure: No Alcohol Alcohol Intake: current Alcohol intake frequency: a few times a month Alcohol type: wine and hard liquor Substance Use Substance use: Never Substance use type: does not use Counseling provided: none Vital Signs and Lab Results Vital Signs Most Recent Vital Signs in EMR: Temp Pulse Resp BP Pulse Ox 36.4 C L 83 16 118/87 98 06/16/22 08:10 06/16/22 08:10 06/16/22 08:10 06/16/22 08:10 06/16/22 08:10 Lab Results Blood Type / Crossmatch: Patient ABO/Rh O Negative 06/09/22 Antibody Screen NEGATIVE 06/09/22 Complete Blood Count: White Blood Count 4.84 10^3/uL (4.4-10.8) 06/09/22 09:50 Red Blood Count 4.61 10^6/uL (3.93-5.22) 06/09/22 09:50 Hemoglobin 14.7 g/dL (11.2-15.7) 06/09/22 09:50 Hematocrit 43.6 % (36.0-46.0) 06/09/22 09:50 Platelet Count 261 10^3/uL (130-400) 06/09/22 09:50 Complete Metabolic Panel: Sodium 139 mmol/L (136-145) 06/09/22 09:50 Potassium 4.8 mmol/L (3.5-5.1) 06/09/22 09:50 Chloride 103 mmol/L (98-107) 06/09/22 09:50 Carbon Dioxide 26.2 mmol/L (21.0-32.0) 06/09/22 09:50 BUN 17 mg/dL (7-18) 06/09/22 09:50 Creatinine 0.9 mg/dL (0.55-1.02) 06/09/22 09:50 Est GFR (CKD-EPI 2020) 72.28 (mL/min/1.73m2) 06/09/22 09:50 Calcium 9.9 mg/dL (8.5-10.1) 06/09/22 09:50 Glucose 98 mg/dL (74-106) 06/09/22 09:50 Liver Function Panel: No Data to Display Coagulation Panel: No Data to Display Cardiac Panel: No Data to Display Arterial Blood Gas: No Data to Display Venous Blood Gas: No Data to Display Pancreas Panel: No Data to Display Thyroid Panel: No Data to Display Infectious Disease: Coronavirus (COVID-19)(PCR) Negative (Negative) 06/16/22 07:44 Coronavirus 2019 Source Nasal/Nares 06/16/22 07:44 Blood Cultures: No Data to Display Toxicology Panel: No Data to Display Imaging and Studies Imaging and Studies Study information below may be from another EMR and interpreted by another provider. Please see original notes in EMR for more complete details. Other Study Summary:: Exam Type: HOLTER MONITOR APPLICATION Reason for Test: palpitation Patient Location: O Conclusion This is a 48-hour monitor order for indication of palpitations. ???The patient was in normal sinus rhythm for majority of the recording with an average heart rate of 86 bpm. ???There were 3 episodes of supraventricular tachycardia with the longest lasting 4 beats. ???There were 0 episodes of ventricular tachycardia and 3 total PVCs. ???There were no episodes of atrial fibrillation, no pauses greater than 3 seconds and no evidence of high degree heart block. ???There were no patient triggered events. <Electronically signed by HILARIA WILDER MD in [facility]> E-Sign Date: 06/17/20 E-Sign Time: 928 Anesthesia Assessment and Plan Anesthesia History Personal History: No History of Anesthesia Complications Family History: No Family History of Anesthesia Complications Exercise Tolerance Exercise Tolerance: Metabolic Equivalents>4 Cardiac & Pulmonary Exam Cardiac Exam: Normal S1/S2 Heart Sounds Pulmonary Exam: Clear Bilateral Breath Sounds Implantable Cardiac Device Does patient have a Pacemaker or an ICD?: No Airway Exam Known Difficult Airway: No Mallampati Class: 1 Mouth Opening: Normal (> 3cm) Thyromental Distance: Greater than 3 cm Neck Range of Motion: Full ROM Neck Circumference: Normal Teeth Condition: Normal Dentition Airway Comments: Multiple crowns in back ASA Classification ASA Score: ASA 2 Emergency Case?: No NPO Status NPO Status: NPO Clears >2 hours, Solids >8 hours Anesthesia Plan Resuscitation Status: Full Code Anesthesia Technique: Spinal Anesthesia Airway Planned: Natural Airway Pain Management: Surgeon and patient request nerve block Monitors Used: Standard Monitors Preoperative Comments:: 61 yo female for TKA left and revision of a right TKA. Sig PMHx: psoriatic arthritis (has been off DMARs), palpitations, ADITYA, HTN, never smoker, occ EtOH. Previous anes: - spinal for TKA without issues. Plan: Discussed GA vs spinal, plan for spinal with bilateral adductor blocks.
--- NOTE | 2022-06-16 07:40 | W.ANESNERVE ---
Nerve Block Single Injection Procedure Date and Time Date Performed: 06/16/22 Procedure Start: 09:50 Location Where Procedure Performed Procedure Location: Day Surgery Unit Reason Performed: Postoperative Analgesia Requesting Provider: Blane Lainez Timeout Performed Timeout Performed: Yes Monitoring Used ECG, Blood Pressure and SpO2 Sterility Sterility: Hand Hygiene, Surgical Cap, Surgical Mask and Chlorhexidine Sedation Given During Procedure Sedation Given (Indicate Dose Given): No Sedation given Patient Mental Status Patient Mental Status: Awake Nerve Block 1st Nerve Block: Laterality: Bilateral Block Type: Adductor Canal Ultrasound Image Saved?: Yes Needle / Catheter Used: 100mm SonoPlex II Local Anesthetic Bolus (Indicate Dose Given): Lidocaine used for local infiltration of skin, Half of Total block solution given into each side and Bupivacaine 0.25% Dose:: 15 mL Additives (Indicate Dose Given): None Ultrasound: Sterile probe cover and gel used Nerve Stimulator: Not Used Paresthesia: None Procedure Tolerated: No Complications Procedure Outcome: Successful Performed By: Volodymyr Rushing
[2022-06-16 07:57] LABS: Source Nasal/Nares
[2022-06-16 08:33] LABS: COVID-19 PCR Negative (Negative)
[2022-06-16] MEDS: Lactated Ringers 1,000 ML 80 ML IV (08:50)
[2022-06-16] MEDS: Celecoxib 200 MG CAP 400 MG PO (08:52)
[2022-06-16] MEDS: Acetaminophen 500 MG TAB 1000 MG PO (08:52)
[2022-06-16] MEDS: Gabapentin 300 MG CAP PO (08:52)
--- NOTE | 2022-06-16 09:48 | HPE_ITS ---
Assessment and Plan Assessment and plan (1) Loose right total knee arthroplasty: Status: Acute (2) Painful total knee replacement, right: Status: Acute (3) Arthritis of left knee: Status: Acute Assessment and plan: Ally is a 61-year-old active female with severe inflammatory arthritis and the new diagnosis of collagenous colitis. She had initial surgery delayed due to this diagnosis. She has not been cleared to proceed. The plan was again is for primary knee replaced on the left side followed by revision on the right side, likely only the tibial component. Aggressive synovectomy is performed on both. I reviewed technical considerations of each. I discussed the risk of the procedure to include bleeding, infection, pain, stiffness, damage to nerves and vessels, damage to muscle and tendons, loosening, fracture, hardware failure, need for repeat procedures, blood clot. Despite these risks, she elects to proceed. She is not on any of her immune modulating medications and is on no steroids. She will be unable to take anti-inflammatories due to her new diagnosis of colitis. History of Present Illness History of Present Illness Chief Complaint: Bilateral Knee Pain Narrative: Kasandra is a 61-year-old have seen previously for bilateral knee pain. The right knee is status post right knee replacement 1 year ago. Unfortunate, she is now some increasing pain about the right knee. Previous x-rays have shown si gns of loosening about the right knee. She continues have significant start up pain, mostly surrounding the tibia as well as exquisite pain medially. Infection work-up has been negative. Unfortunately, she also is a continued left knee pain with known arthritis. See previous notes for complete detailed history. She has been unable to utilize any of her typical anti-inflammatory and antirheumatoid medications due to ongoing collagenous colitis. Her initial surgical date was canceled due to this. After thorough work-up she has been deemed cleared for surgery. She is here today for left knee replacement and a right knee revision, tibial component only. Review of Systems All systems reviewed & are unremarkable except as noted in HPI and below PFSH All Active Problems (Updated 06/16/22 @ 07:59 by Sandy Albrecht) Collagenous colitis (Acute) bx proven Contusion of liver (Acute) 06/16/22 pt reports confirmed to be hemangioma Loose right total knee arthroplasty (Acute) Diarrhea (Acute) Tubular adenoma of colon (Acute) Varicose veins of lower extremity (Chronic) Sun-damaged skin (Chronic 12/24/16) Psoriatic arthritis (Chronic 01/15/15) rheumatolgy - [facility] Atypical mole (Chronic 12/24/16) Annual physical exam (Acute 04/04/15) Melanoma (Acute) Spondylolisthesis (Acute) Skin irritation (Acute) Palpitations (Acute) Had Holter Monitor last year Mammographic breast lesion (Acute 01/31/13) Incomplete emptying of bladder (Acute) Hypercalcemia (Acute 07/17/13) Grief at loss of child (Acute 10/01/15) Enlarged lymph node (Acute 09/01/16) Closed fracture of phalanx of finger (Acute 02/24/08) Insomnia (Acute) ADITYA (obstructive sleep apnea) (Chronic ~07/2019) Skin lesion (Acute) Dysphagia (Acute) Dysuria (Acute) UTI - currently on antibiotics Palpitation (Acute) Hip arthritis (Acute) Femoroacetabular impingement of both hips (Acute) Arthritis of right hip (Acute) Splinter (Acute) Xerostomia (Acute) Xerophthalmia (Acute) Throat clearing (Acute) Cervical pain (Acute) History of total right knee replacement (Acute 05/06/21) DOS 05/06/21 Headache (Acute) Painful total knee replacement, right (Acute) Encounter for screening colonoscopy (Acute) Hypertension (Chronic) COVID-19 (Acute ~10/2021) Arthritis of left knee (Acute) Chondrocalcinosis of left knee (Acute) Crepitus of joint of right knee (Acute) Medical History (Updated 06/16/22 @ 07:59 by Sandy Albrecht) Abnormal laboratory test result (07/17/13) elevated mcv Breast mass seen on mammogram 01/31/13 [facility] [place]; left breast mass Cat 4 Closed fracture of phalanx of finger 02/24/08 right middle distal phalanx Grief at loss of child (10/01/15) Hypercalcemia 07/17/13 Incomplete emptying of bladder Palpitations ? secondary to Arthrotec Pt. had holter monitor Parathyroid adenoma Skin irritation reaction to pool chemicals Spondylolisthesis LBP; L5-S1 Surgical History BUNIONECTOMY 06/28; ROSALINDA Colonoscopy - MAC (03/04/12) 02/2022 History of varicose vein stripping Hx of total knee replacement 04/2021 Open Carpal Tunnel release (~1982) RIGHT Parathyroidectomy (06/02/17) S/P abdominal hysterectomy 06/14/99 ovary intact; fibroid disease S/P meniscectomy left-2006; right-2009 S/P DELMY (total abdominal hysterectomy) Status post fusion of joint of finger Right index and middle DIP joints Family History Mother , 89 Sjogren's syndrome Heart disease Hyperlipidemia Stroke Father , AGE 51 Alcohol abuse Cirrhosis of liver Sister Breast cancer Sister Sjogren's syndrome Hyperlipidemia Sister Diabetes Hyperlipidemia Myocardial infarction Heart disease Sister Heart disease Sister No problems noted. Sister , age 63 Autoimmune disease Maternal Grandfather , age 88 Multiple myeloma Paternal Grandfather , age 61 Gangrene stomach No problems noted. Maternal Grandmother , age 83 Breast cancer Heart disease [place] Paternal Grandmother Heart disease Son , AGE 26 Substance abuse Alcohol abuse Daughter No problems noted. FAMILY HISTORY Autoimmune disease Sister No problems noted. Social History Smoking/Tobacco Use Status: Never Smoking risk assessment performed?: Yes Alcohol Intake: current Alcohol Intake frequency: a few times a month Alcohol type: wine and hard liquor Drug use: Never Substance use type: does not use Counseling given: No Counseling provided: none Caregiver/Support person: No Household members: spouse Housing: house Communication Needs: None Do you need help understanding health information?: Never current occupation: [employer] Pets and animals: No Sexually active: Yes Do you think of yourself as: straight/heterosexual Current gender identity: female What is your relationship status?: How often do you talk on the phone with friends or family?: three or more times per week How often do you get together with friends or relatives?: never How often do you attend sikh or gnosticist services?: 4 or more times per year Do you belong to any clubs or organized social groups?: yes Panel score (0-1 are the most socially isolated patients): 4 What type of physical activity do you participate in: walking, weight lifting, other Details: cardio, core, karate, strength training, etc. and yoga Duration: 45-60 minutes/day Frequency: 3-4 times per week Anna/Sikhism: Mandaen Special anna needs: No Seatbelt use: always Helmet use: Yes Helmet use: sometimes Drive intox or ride w/intox four horse hitch driver: No Do you feel safe at home: Yes Do you feel safe in your relationship?: Yes Victim of physical abuse: No Victim of emotional abuse: No Victim of sexual abuse: No Would you like helpful sources: No Meds Allergies and Home Medications Allergies Allergy/AdvReac Type Severity Reaction Status Date / Time doxycycline Allergy Intermediate Rash Verified 06/16/22 07:59 povidone-iodine Allergy Mild rash Verified 06/16/22 07:59 [From Betadine] phenylbutazone AdvReac WANG's Verified 06/16/22 07:59 Home Medications Medication Instructions Recorded Confirmed Type flaxseed oil 1,000 mg capsule 2,000 mg PO DAILY 02/09/13 06/16/22 History multivitamin (Daily Vitamin tablet) 1 tab PO DAILY 02/09/13 06/16/22 History lysine HCl 1,000 mg tablet 1,000 mg PO TID PRN 01/15/15 06/16/22 History melatonin 3 mg-pyridoxine (vitamin 2 tab PO HS 01/09/21 06/16/22 History B6) 2 mg tablet turmeric root extract 500 mg 500 mg PO DAILY 01/09/21 06/16/22 History capsule triamcinolone acetonide 0.1 % 1 applic topical BID PRN rash #80 01/31/21 06/16/22 Rx topical ointment grams acetaminophen 500 mg tablet 1,000 mg PO Q8H PRN pain #90 tabs 05/06/21 06/16/22 Rx secukinumab 150 mg/mL subcutaneous 150 mg subcut Q4W 07/28/21 06/16/22 History syringe (Cosentyx) estradiol 10 mcg vaginal tablet 10 mcg vaginal 2x/week #30 tabs 11/07/21 06/16/22 Rx (Vagifem) estradiol 0.01% (0.1 mg/gram) 1 appful vaginal DAILY #127.5 grams 02/04/22 06/16/22 Rx vaginal cream (Estrace) naproxen 250 mg tablet 500 mg PO BID 02/17/22 06/16/22 History duloxetine 30 mg capsule,delayed 30 mg PO BID #180 caps 03/23/22 06/16/22 Rx release colestipol 5 gram oral granules 5 g PO BID #500 grams 04/08/22 06/16/22 Rx diphenoxylate-atropine 2.5 1 tab PO QID #56 tabs 04/08/22 06/16/22 Rx mg-0.025 mg tablet (Lomotil) eurezy-fglmrmgl-gccykpq 1 cap PO TID #90 caps 04/13/22 06/16/22 Rx 6,000-19,000-30,000 unit capsule,delayed rel (Creon) budesonide 9 mg tablet,delayed and 9 mg PO DAILY #90 tabs 06/10/22 06/16/22 Rx extended release diclofenac sodium 1 % topical gel 2 g topical QID PRN pain, mild 06/10/22 06/16/22 Rx (Voltaren Arthritis Pain) #100 grams cyclosporine 0.05 % eye drops in a 1 drp ophthalmic (eye) BID 06/16/22 06/16/22 History dropperette (Restasis) Exam Const General: cooperative, healthy appearing, comfortable and no acute distress Resp Auscultation: clear to auscultation bilaterally Cardio Rate: regular rate Rhythm: regular rhythm Extrem Other: Brief evaluation of the right knee shows no signs of infection. Wound is well- healed. Mild to moderate effusion. Pain along the joint line, more medial than lateral. Pain over the proximal tibia medially. Sensation intact light touch over the deep and superficial peroneal nerve and tibial nerve. Palpable DP pulse. Results Imaging Imaging Studies: Previous images were reviewed. The images of the right knee show peripheral loosening seen on the AP and the lateral views. This is intervally worse on the most recent x-rays. X-rays of the left knee show joint space narrowing, peritubular osteophytes, mostly medial, chondrocalcinosis, and subchondral sclerosis. Labs Labs: Laboratory Results - last 24 hr 06/16/22 07:44 COVID-19 Source Nasal/Nares SARS-CoV-2 (PCR) Negative Last Vital Signs Temp 36.4 C L 06/16/22 08:10 Pulse 83 06/16/22 08:10 Resp 16 06/16/22 08:10 BP 118/87 06/16/22 08:10 Pulse Ox 98 06/16/22 08:10
[2022-06-16] MEDS: ceFAZolin 2 GM/50 ML BAG IVPB (10:08)
--- NOTE | 2022-06-16 14:04 | W.PM.OP ---
Date of service: 06/16/22 Time of Service: 13:40 Operative Note Operative Note DATE OF PROCEDURE: 06/16/22 PRE-OP DIAGNOSIS: Left Knee Arthritis and Loose Right Knee Arthroplasty, Tibial Component POST-OP DIAGNOSIS: same PROCEDURE: Left Total Knee Arthroplasty and Right Knee Revision Arthroplasty, Tibial Component SURGEON: Blane Lainez [employer] CHEMIST: Roseanne Coelho ANESTHESIA TYPE: Spinal Refer to Anesthesia Record ESTIMATED BLOOD LOSS: 300 PATHOLOGY: none sent TOURNIQUET TIME: 60 COMPLICATIONS: Other (Small crack in the proximal-central tibia during impaction, stable) Patient was transported to: PACU Patient's condition: stable Implants: LEFT KNEE: 1. Depuy Attune Cruciate Retaining Femoral Component, Size 4 2. Depuy Attune Rotating Platform Tibial Component, Size 4 3. Depuy Attune 4x6mm CR,RP Poly 4. Depuy Attune Patellar Component, Size 32 RIGHT KNEE: 1. Depuy Attune Rotating Platform Cemented Tibial Component, Size 4 2. Depuy Attune 4x10mm Cr,RP Poly Indications: I have seen Kasandra in clinic for symptoms of knee arthritis, confirmed with radiographic findings. She also is having pain about the right knee most likely associated with loosening based on x-rays and clinical exam findings. Kasandra has exhausted nonoperative methods and was having significant limitations in daily function and desired better function and less pain. I discussed the technical details of a knee replacement along with a revision of the tibial component on the right side. I explained the risks of the procedure to include, but not limited to, bleeding, infection, pain, stiffness, fracture, damage to nerves and vessels, damage to muscles and tendons, loosening, need for repeat procedure, blood clot and cardiopulmonary demise. Despite these risks, Kasandra elected to proceed. Findings: The left knee had signs of arthritis focus throughout the entirety of the knee, mostly medial., There is some minor undermining of the distal?lateral femoral cut although not all the way through. There is no other signs of loosening of the femoral component even with direct impaction. The tibial component was not ingrown. There was bone growth up to the tibia but not into the tibia. This was able to be removed with minimal difficulty. There is no bone disruption and therefore proceeded with placement of a cemented primary tibial component. During the impaction of the tibial component there is a small crack noted in the anterior surface of the tibia which did not propagate out the cortex and was not unstable. Procedure Description: Kasandra was greeted in the preoperative holding area where the correct side was identified and marked. The consent was reviewed with the patient and signed. The history and physical was updated. All questions were answered. Preoperative mediacations were administered: Acetaminophen 1000mg, Celebrex 400mg, and Gabapentin 300mg. An adductor canal block was then administered by the anesthesia team in the [facility]. She was taken back to the operating room. A spinal anesthestic was then administered. The patient was placed into the supine position on the operating room table. A nonsterile tourniquet was placed high onto each leg but only used for cementing. Posts were placed for positioning during the procedure. All bony prominences were well padded. Prophylactic antibiotics in the form of Cefazolin were administered. 1g of Tranxemic Acid was given intravenously within 30 minutes of incision. Both legs were then prepped with Chloraprep and draped in a standard fashion with impervious stockinette and a bilateral extremity drape. Starting with the left side, A second prep with Chloraprep was performed prior to placing Ioband. A timeout to confirm correct identity, side and site, procedure, allergies, anesthesia, and medical concerns was performed. With the knee in some flexion, a midline incision was made overlying the knee. Full thickness skin flaps were raised once the extensor mechanism was encountered. These were raised medially and laterally. Any bleeding was controlled with electrocautery. Once the extensor mechanism was fully exposed, a medial parapatellar arthrotomy was performed in a flexed position. All bleeding from the arthrotomy and the geniculate arteries was coagulated. A medial subperiosteal peel was performed with electrocautery to the midcoronal plane. The fat pad was removed while keeping the patellar tendon protected. The anterior distal femur synovium was removed for later visualization. The ACL and PCL were resected and the anterior horn of the lateral meniscus was transected. The knee was then flexed with the patella everted. Using a step drill, and based on preoperative templating, the femoral canal was entered. This was done with a step drill without any difficulty. The intramedullary distal femoral cut guide was inserted, set to a 7 degree valgus cut and 9mm cut thickness. The distal femoral cut guide was then held in position and pinned. With the soft tissues protected, the distal cut was performed. This was passed over a few times to ensure a planar cut. I then turned attention to the tibia. The extramedullary guide was placed onto the leg. The distal aspect was slid medial to adjust for position of center of ankle and stay in line with shaft of the tibia. Approximately 3-5 degrees of posterior slope was kept in the proximal cutting guide. The center of the guide was aligned with the PCL. The stylus was used to assess cut thickness. The medial side, most involved side, was set for a 6mm cut, which corresponded to about 8 mm laterally. This was then held in position and pinned into place with 2 additional pins and a cross pin for stability. The medial and lateral collateral ligaments were protected and the cut was performed. With this completed, it was assessed and noted to be of appropriate dimensions. The guide was removed. A spacer block was inserted and the knee was brought into extension. The 6mm spacer block provided full extension, without hyperextension and with stability of both the medial and lateral collateral ligaments was assessed. The pins from the femur and the tibia were then removed. The distal femur was then sized. The anterior stylus was placed onto the lateral ridge of the anterior femur. This indicated a size 4 femur. The external rotation of the guide was adjusted to 0 degrees to match the epicondylar axis, perpendicular to [place]?s line. The 4-in-1 cutting guide was the placed. The posterior medial femur cut was evaluated and appeared of good thickness. The spacer block was inserted underneath the cutting guide and stability was confirmed in 90 degrees of flexion. An judy wing was used to confirm appropriate position of the anterior cut to avoid notching. This cutting guide was ensured to be flush on the cut surface and then pinned into place with headed pins. While protecting the soft tissues, quad tendon, and collateral ligaments, the anterior and posterior cuts were performed with a saw. The central two pins were removed and the posterior and anterior chamfers were cut next. The notch-cutting guide was placed. This was pinned to lateralize the femoral component as much as possible while keeping it flush on the cut surface. This was then pinned into position. A reciprocating saw was used to make the small notch cut. A trial CR femoral component was then inserted, impacted down to the cut surfaces, and the lug holes were drilled. A provisional trial tibial component was placed and the knee was brought through range of motion. There was noted to be excellent extension and flexion. There was no significant instability. The patella was tracking without thumbs. The tibial cut surface was fully exposed. The medial and lateral menisci were removed. The tibia was then sized as a 4. The tibia had been previously marked during trialing to correspond to the center of the tibial component to help with rotation. The trial was aligned to this jenny, approximately rotated to the medial 1/3rd of the tibial tubercle. The trial was pinned into place. The tibia was prepared with a reamer and a keel punch. The knee was then brought into extension and the patella was measured as 22mm. Using the patellar clamp and cut guide, this was resected to a flat surface with at least 13mm of thickness remaining. The size 32 patella fit the best. This was oriented and then clamped into position. The lugs were drilled. The trial components were removed. The final components, except for the polyethylene were opened on the back table. The periosteal and capsular tissues, especially posteriorly, around the knee were then systematically injected with a periarticular cocktail consisting of 123mg of Ropivacaine, 0.25mg of Epinephrine, 0.04mg of Clonidine, and 15mg of Ketorolac, diluted to 50cc. The tourniquet was then inflated to 275mmHg. The knee was thoroughly irrigated with a pulse lavage and dried. On the back table, with the implants opened, the cement was mixed. 2 batches of medium viscosity cement were prepared with vacuum assistance. After the cement was ready it was placed on to the back side of the tibial component. A small amount was placed onto the posterior flange of the femur. Cement was manual pressurized and impregnated into the cut surface of the tibia. The tibial component was then inserted into the cut surface and impacted into position. Excess cement was removed and the component was reimpacted. Again, excess cement was removed and our attention was then turned to the femur. The femoral cut surface was once again dried and cement was manually impacted into the cut surface. The femoral component was lined with the lug holes and impacted. Excess cement was removed. It was ensured to be down against the cut surface. The trial polyethylene was then inserted and the leg was brought out into full extension for the duration of the cement curing process, approximately 18min. Cement was lastly manually impacted into the cut surface of the patella and the patellar button was clamped into position and held. During this process attention was turned to the gutters of the knee and for all interfaces for any excess cement. While the cement was hardening, the knee was irrigated with Surgiphor Betadine solution. It was allowed to sit in the knee for 3 minutes and then it was thoroughly irrigated with saline. After the cement had finally cured, approximately 18min, the clamp was removed from the patella and the knee was taken through range of motion. A size 6mm polyethylene component provided the best range of motion and stability with less than 2mm gapping with medial and lateral stress and full extension without significant hyperextension. The patella was tracking with a no-thumbs technique. The trial poly was removed and once again the knee was checked for any loose, excess, or errant cement. The poly component was then inserted into position after cleaning and drying the tibial tray. The capsule was then reapproximated with a No. 1 Vicryl at multiple locations. The capsule was finally closed with a No. 2 Stratafix, barbed suture. The tourniquet was then released and the arthrotomy appeared watertight without significant bleeding. The second dosing of 1g TXA was started. Deep tissues were then reapproximated with 0 Vicryl and 2-0 Vicryl. The skin was closed with a running 3-0 Monocryl in a subcuticular fashion. This was reinforced with skin glue. Attention was then turned to the right knee. The knee was prepped once again with ChloraPrep and, once dry, an Ioban was placed. Previous incision was marked. A midline incision was then made utilizing the previous incision extending approximately distally. Full-thickness skin flaps were made over the extensor mechanism. With extensor mechanism fully identified a medial parapatellar arthrotomy was then performed. There is significant density of this tissue. Thickening was seen throughout the entirety of the knee. An aggressive synovectomy was then performed throughout the knee utilizing 2 Allis and 2 Michael clamps. The synovium was removed throughout the medial and lateral gutters as well as extending anteriorly. Attachments and adhesions between the patellar tendon and the anterior tibia were released. Synovium from the periphery of the femoral component as well as the tibial component were also released. A medial peel was performed of the medial soft tissues to expose the tibial component completely around the medial aspect. Likewise, soft tissues of scaring the view of the lateral aspect of the tibial component were also removed. Making sure that all interfaces of the femoral component were visible, I inspected them with a [place]. There is 1 area over the lateral aspect of the distal femur where the bone was somewhat soft and not fully adherent. However, there is no other locations where there is not bony ingrowth of the femur. Using a bone tamp and a mallet I then applied medium force mallet blows against the component and there is no movement of the femoral component nor was there any fluid extravasation between the bone and the component. This was deemed to be stable and attention was turned to the tibia. The polyethylene was removed with an osteotome. A [place] was able to be inserted underneath the implant in various locations which was suggestive of the loosening. There is no gross motion of the tibial component. Using flexible osteotomes I whatever adhesions were present between the tibial component and the proximal tibia. A bone tamp and a few light mallet blows easily displaced the tibial component was removed. There is no bony defects. There was some soft tissue but mostly there was a thin layer of bone on the surface of the tibia adjacent to the tibial component there is no defects. A curette was used to remove any soft tissue components. The tibial surface was excellently preserved and therefore this was used. A trial size 4 tibial component was then placed which showed excellent balance of the knee with a 10 mm polyethylene. This was checked both in extension and flexion. I therefore proceeded to prepare the tibia with the size 4 cruciate retaining cemented tibial component. This was prepared using the standard technique. After this was removed I then used a 2.0 millimeter drill bit to make multiple holes in the surface to allow for cement penetration. I also used a curette to break through any defects in this thin cortical shell, especially within the keel area. The final component, except for the polyethylene were opened on the back table. The periosteal and capsular tissues, especially posteriorly, around the knee were then systematically injected with a periarticular cocktail consisting of 123mg of Ropivacaine, 0.25mg of Epinephrine, 0.04mg of Clonidine, and 15mg of Ketorolac, diluted to 50cc.. The tourniquet was then inflated to 275mmHg. The knee was thoroughly irrigated with a pulse lavage and dried. On the back table 1 batch of high viscosity cement was then prepared. It was placed onto the backside of tibial component and then manually pressurized into the cut surface of the tibia. I then inserted the tibial component and seated fully with light mallet blows. During this process there is no to be a very small crack which appeared on the anterior surface of the tibia. It did not connect any of the fracture line and was unable to be displaced with any manipulation with a [place] or of the tibia. Therefore, it was left as is. A trial polyethylene was placed and the knee was brought to extension right was kept for the duration of the cement curing process. Excess cement was removed. While the cement was hardening, the knee was irrigated with Surgiphor Betadine solution. It was allowed to sit in the knee for 3 minutes and then it was thoroughly irrigated with saline. After the cement had cured, 15 minutes, the knee was inspected and the 10 mm polyethylene provided excellent fit. The cut surface was inspected to make sure there is no other areas of cement present. Once again, this crack on the anterior surface of the tibia was fully inspected and showed no signs of instability the cement bone interface was also inspected and multiple occasions which showed to have adequate fixation. The knee was taken through range of motion and had excellent range of motion. The knee was then brought up in a 90 degrees of flexion where the arthrotomy is closed multiple locations with a #1 Vicryl. This was reinforced and fully closed with a running #2 STRATAFIX suture. The soft tissues were then closed with a 0 and #2-0 Vicryl followed by running 3-0 Monocryl suture in a buried, subcuticular fashion. This was reinforced with skin glue. A Mepilex silver dressing was applied to both knees along with a [id number] LUANNE wrap. A CryoCuff was applied. Kasandra was transferred to the hospital bed without difficulty an suffering no apparent complication. Kasandra has a good prognosis. Physical therapy will start today and without restrictions, weight-bearing as tolerated. Aspirin 81mg BID will be used for DVT prophylaxis.
--- NOTE | 2022-06-16 14:15 | W.ANESPOSTOP ---
Postoperative Evaluation Date, Time and Location Date Performed: 06/16/22 Time Performed: 14:16 Patient Location: PACU Vital Signs Most Recent Imported Vital Signs: Most Recent Vital Signs Temp Pulse Resp BP Pulse Ox 36.7 C 78 18 86/63 L 97 06/16/22 14:10 06/16/22 14:10 06/16/22 14:10 06/16/22 14:10 06/16/22 14:10 Pain Score Most Recent Pain Score: Most Recent Pain Score Pain Level 0 06/16/22 14:10 Assessment Mental Status: Awake (Alert & Oriented to Patient Baseline) Airway and Respiratory Function: Patent airway with normal (patient baseline) respiratory exam Cardiovascular Function: Hemodynamically Stable Hydration Status: Adequately Hydrated Nausea & Vomiting: No Nausea or Vomiting Pain: Pt. Denies Any Pain (spinal not yet worn off. ) Peripheral Nerve Block: Regional nerve block not resolved at time of post operative discharge
[2022-06-16] MEDS: ceFAZolin 1 GM/50 ML BAG IVPB ×2 (15:55→23:23)
[2022-06-16] MEDS: Midodrine 2.5 MG TAB 5 MG PO ×2 (15:55→20:01)
[2022-06-16] MEDS: Acetaminophen 325 MG TAB 650 MG PO ×2 (15:55→20:47)
[2022-06-16] MEDS: Normal Saline Flush 10 ML SYR IV ×3 (15:56→23:24)
--- NOTE | 2022-06-16 16:30 | IN_ITS ---
Date of service: 06/16/22 Time of Service: 16:26 PT Notes Physical Therapy Inpatient Initial Evaluation Date: 06/16/2022 Referring Doctor: Blane Lainez MD PT Orders: PT CONSULT: S/P Ortho surgery. S/P L TKA and revision right TKA Precautions: WBAT on BLE with AD. Patient Profile/Admitting Diagnosis: Ally is a 62-year-old female with painful right knee from R knee DJD, loose right tibial component of right TKA, and degenerative joint disease of the left knee status post left total knee arthroplasty and right TKA revision of tibial component on postoperative day 0. PMHX: All Active Problems?(Updated 06/16/22 @ 07:59 by Sandy Albrecht) Collagenous colitis (Acute) bx proven Contusion of liver (Acute) 06/16/22 pt reports confirmed to be hemangioma Loose right total knee arthroplasty (Acute) Diarrhea (Acute) Tubular adenoma of colon (Acute) Varicose veins of lower extremity (Chronic) Sun-damaged skin (Chronic 12/24/16) Psoriatic arthritis (Chronic 01/15/15) rheumatolgy - [facility] Atypical mole (Chronic 12/24/16) Annual physical exam (Acute 04/04/15) Melanoma (Acute) Spondylolisthesis (Acute) Skin irritation (Acute) Palpitations (Acute) Had Holter Monitor last year Mammographic breast lesion (Acute 01/31/13) Incomplete emptying of bladder (Acute) Hypercalcemia (Acute 07/17/13) Grief at loss of child (Acute 10/01/15) Enlarged lymph node (Acute 09/01/16) Closed fracture of phalanx of finger (Acute 02/24/08) Insomnia (Acute) ADITYA (obstructive sleep apnea) (Chronic ~07/2019) Skin lesion (Acute) Dysphagia (Acute) Dysuria (Acute) UTI - currently on antibioticsPalpitation (Acute) Hip arthritis (Acute) Femoroacetabular impingement of both hips (Acute) Arthritis of right hip (Acute) Splinter (Acute) Xerostomia (Acute) Xerophthalmia (Acute) Throat clearing (Acute) Cervical pain (Acute) History of total right knee replacement (Acute 05/06/21) DOS 05/06/21 Headache (Acute) Painful total knee replacement, right (Acute) Encounter for screening colonoscopy (Acute) Hypertension (Chronic) COVID-19 (Acute ~10/2021) Arthritis of left knee (Acute) Chondrocalcinosis of left knee (Acute) Crepitus of joint of right knee (Acute) Medical History?(Updated 06/16/22 @ 07:59 by Sandy Albrecht) Abnormal laboratory test result (07/17/13) elevated mcv Breast [place] on [place] [facility] [place] breast mass Cat 4 Closed fracture of phalanx of finger 02/24/08? right middle distal phalanx Grief at loss of child (10/01/15) Hypercalcemia 07/17/13 Incomplete emptying of bladder Palpitations ? secondary to Arthrotec Pt. had holter monito rParathyroid adenoma Skin irritation reaction to pool chemicals Spondylolisthesis LBP; L5-S1 Surgical History? BUNIONECTOMY 06/28; ROSALINDA Colonoscopy - MAC (03/04/12) 02/2022 History of varicose vein stripping Hx of total knee replacement 04/2021 Open Carpal Tunnel release (~1982) RIGHT Parathyroidectomy (06/02/17) S/P abdominal hysterectomy 06/14/99 ovary intact; fibroid disease S/P meniscectomy left-2006; right-2009 S/P DELMY (total abdominal hysterectomy) Status post fusion of joint of finger Right index and middle DIP joints Social History/Home Situation: Lives with in a private home with 3 steps to enter with a post on 1 side that she can hold onto. 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 Equipment Owned/DME: [employer] Subjective: Agreeable to PT consult. Denies headache, chest pain, and lightheadedness throughout session. Reported mild burning sensation on the dorsum of the left foot with ambulation that resolved with rest. Per Nurse Rico, patient's BP intially was in the 90s/60s mmHg but has gone back up to WNL when measured in sitting. Objective: General Observation: Supine in bed. In NAD. IV in the left UE. LUANNE wraps to BLE. Cryo/Cuff to B knees. Mental Status: Alert and oriented x4 Pain: Denies Vital Signs: WNL as measured by Nurse Rico prior to standing patient ROM: Right Lower Extremity: Hip flexion WFL. Hip abduction WFL. Knee flexion 10 degrees to 100 degrees. Knee extension -10 degrees. Ankle dorsiflexion WFL. Ankle plantarflexion WFL. Left Lower Extremity: Right Lower Extremity: Hip flexion WFL. Hip abduction WFL. Knee flexion 10 degrees to 100 degrees. Knee extension -10 degrees. Ankle dorsiflexion WFL. Ankle plantarflexion WFL. Strength: Right Lower Extremity: Hip flexors 4/5. Hip abductors 4/5. Knee flexors 3-/5. Knee extensors 3+/5. Ankle dorsiflexors 5/5. Ankle plantarflexors 5/5. Left Lower Extremity:Hip flexors 4/5. Hip abductors 4/5. Knee flexors 3-/5. Knee extensors 3+/5. Ankle dorsiflexors 5/5. Ankle plantarflexors 5/5. Sensation: Reports some mild burning sensation on the dorsum of the L foot. Inatct as to pain and light pressure in B LE Bed Mobility/Transfers: Supine to sit stand by assist Sit to stand stand by assist Stand to sit stand by assist Bed to toilet seat stand by assist THERA EX: Quads sets x 10 Ankle DF/PF x 10 Gait: Tolerated level surface ambulation of 250 feet using front-wheeled walker with initially step to gait pattern, was able to tolerate 4 steps through step through gait pattern towards the end of the walk. Standby assist provided. Wheelchair follow provided by . No loss of balance no shortness of breath. Balance: Static Sitting: Normal Dynamic Sitting: Normal Static Standing: Fair Dynamic Standing: Fair Special Tests: Mobility Limitations Standardized Measure [facility] 6 clicks Basic Mobility Inpatient Short Form: Raw Score: 23 CMS Score: 11% deficit Informed Consent/Education: Patient instructed in purpose of PT consult. Initiated seated exercises that patient can do in her room on her own tonight and before PT session tomorrow.. Assessment: Ally requires the use of a front-wheeled walker for all mobility ADL performance maximize independence and reduce fall risk. Patient presents with clinical signs and symptoms consistent with current/admitting diagnoses that have resulted to mobility limitations, gait instability, generalized weakness, and impairment of motor control as demonstrated by the following impairment level findings: 1. Decreased strength to B knee major muscle groups 2. Impaired standing balance 3. Limitation of joint range of motion in B knees Impairments are contributing to the following functional limitations: 1. Inability to safely ambulate without assistive device 2. Increase completion time for mobility ADL performance 3. Increased fall risk 4. [place] [facility] deficit score of 11% Patient is assessed as a 63502 moderate complexity based on the following: History: 61-year-old female with impairment level findings, functional limitations, and past medical history as indicated above Examination: Demonstrable impairment in strength, balance, and mobility level with underlying impairments and functional limitations as documented above Presentation: Evolving Decision Makin moderate complexity Goals: Goals X1 week 1. Supine-Sit independent 2. Sit-Supine independent 3. Sit-Stand independent 4. Stand-Sit independent 5. Bed-Chair independent 6. Chair-Bed independent 7. Independent gait on level surface with use of FWW for at least 300 feet without report of pain nor dyspnea 8. Independent stair negotiation while holding onto bilateral rails for at least 3 steps without report of pain nor dyspnea 9. Independent with home exercise program 10. Good static and dynamic standing balance/tolerance Plan of Care/Treatment Plan: 1-2x/day, 7 days/week x 1 week. Plan of care has been reviewed with the JAPANESE INTERPRETER providing the service under Physical Therapy direction. Initiate Physical Therapy intervention for pain management as needed, strengthening, bed mobility, transfers, gait, stairs, balance training, and use of assistive device. DISCHARGE RECOMMENDATIONS: [] Home with no services [] [] Home with services [specify] [X] Home with outpatient PT. Home when medically cleared by orthopedic surgeon. Recommend outpatient PT services in order to optimize functional mobility outcomes and facilitate independent community ambulation as well as full return to vocational activities. [] SNF for continued rehabilitation [] [] Associate Professor Of Kinesiology Care [] [] SNF versus LTC based on ability to participate and progress [] TREATMENT CODE/TIME: 02/18/2001 six 2 x 20 minutes, 9753 [id number] x 14 minutes beginning at 16:30 PM. Thank you for the opportunity to participate in the care of this patient. Tiffanie Brooks PT, DPT, CLT [facility] [place], [place]
[2022-06-16] MEDS: oxyCODONE 5 MG TAB PO ×2 (18:13→23:23)
[2022-06-16] MEDS: Aspirin E.C. 81 MG TABEC PO (20:01)
[2022-06-17] MEDS: Acetaminophen 325 MG TAB 650 MG PO ×2 (03:06→10:30)
[2022-06-17 03:32] VITALS: BP 93/58; PULSE 64; RESP 21; TEMP 36.7; O2SAT 97
--- NOTE | 2022-06-17 05:52 | W.PM.DS.N ---
Date of service: 06/17/22 Time of Service: 07:18 DS: Diagnosis Discharge Diagnosis (1) Loose right total knee arthroplasty: Status: Acute (2) Painful total knee replacement, right: Status: Acute (3) Arthritis of left knee: Status: Acute Discharge Plan Disposition Patient Disposition: Home Condition: Improving Discharge Details Reason For Visit: Left Knee DJD and Right TKA Loosening Admit Date/Time: 06/16/22 07:30 Admit Provider: Blane Lainez Attending Provider: Blane Lainez Primary Care Provider: Nataliya Veliz [facility] Course Hospital Course: Patient was admitted to the medical/surgical floor following the procedure. The surgery was tolerated well without any notable medical, surgical, or anesthetic complications. Mobilization began postoperatively. She was voiding spontaneously. Vitals were stable. Physical therapy worked with the patient and was cleared for discharge home. No acute medical issues. Pain was controlled on oral regimen. Home Meds and New Rx's Prescriptions: New acetaminophen 500 mg tablet 1,000 mg PO Q8H PRN (Reason: pain) Qty: 90 3RF aspirin 81 mg tablet,delayed release (DR/EC) 81 mg PO BID Qty: 60 0RF dexamethasone 4 mg tablet 4 mg PO DAILY Qty: 1 0RF Rx Instructions: Take on POD#2 (06/18/22) gabapentin 300 mg capsule 300 mg PO QHS Qty: 14 0RF oxycodone 5 mg tablet 5 mg PO Q4H Qty: 24 0RF Continued flaxseed oil 1,000 MG capsule 2,000 mg PO DAILY Hold Instructions: Home Medication placed on hold at Doctor's office Label Comments: ON HOLD melatonin-pyridoxine (vit B6) 3-2 mg tablet 2 tab PO HS Hold Instructions: Home Medication placed on hold at Doctor's office Label Comments: Essential Sleep 6-10mg Melatonin aj triamcinolone acetonide 0.1 % ointment 1 applic Topical BID PRN (Reason: rash) Qty: 80 3RF estradiol [Vagifem] 10 mcg tablet 10 mcg VG 2x/week Qty: 30 12RF estradiol [Estrace] 0.01 % (0.1 mg/gram) cream 1 appful VG DAILY Qty: 127.5 4RF Rx Instructions: 3 tubes budesonide 9 mg tablet,delayed and ext.release 9 mg PO DAILY Qty: 90 0RF Rx Instructions: collagenous colitis acetaminophen 500 mg tablet 1,000 mg PO Q8H PRN (Reason: pain) Qty: 90 3RF cyclosporine [Restasis] 0.05 % dropperette 1 drp ophthalmic (eye) BID Held turmeric root extract 500 mg capsule 500 mg PO DAILY Hold Instructions: As directed by PCP, Rheumatology, and GI Label Comments: ON HOLD Cosentyx 150 mg/mL syringe 150 mg subcut Q4W Hold Instructions: As directed by PCP, Rheumatology, and GI Label Comments: ON HOLD duloxetine 30 mg capsule,delayed release(DR/EC) 30 mg PO BID Qty: 180 6RF Hold Instructions: As directed by PCP, Rheumatology, and GI Label Comments: ON HOLD naproxen 250 mg tablet 500 mg PO BID Hold Instructions: As directed by PCP, Rheumatology, and GI Label Comments: ON HOLD multivitamin [Daily Vitamin] 1 EACH tablet 1 tab PO DAILY Hold Instructions: As directed by PCP, Rheumatology, and GI lysine HCl 1,000 MG tablet 1,000 mg PO TID PRN Hold Instructions: As directed by PCP, Rheumatology, and GI Label Comments: ON HOLD colestipol 5 gram granules 5 g PO BID Qty: 500 4RF Hold Instructions: As directed by PCP, Rheumatology, and GI Label Comments: ON HOLD Creon 6,000-19,000 -30,000 unit capsule,delayed release(DR/EC) 1 cap PO TID Qty: 90 3RF Hold Instructions: As directed by PCP, Rheumatology, and GI Label Comments: ON HOLD diclofenac sodium [Voltaren Arthritis Pain] 1 % gel 2 g topical QID PRN (Reason: pain, mild) Qty: 100 3RF Hold Instructions: As directed by PCP, Rheumatology, and GI Rx Instructions: apply to single elbow, wrist or hand; for hand includes palm/fingers/back of hand Discontinued diphenoxylate-atropine [Lomotil] 2.5-0.025 mg tablet 1 tab PO QID Qty: 56 3RF Hold Instructions: Home Medication placed on hold at Doctor's office Label Comments: ON HOLD Discharge Instructions Additional Instructions: Total Knee Discharge Instructions Activity: The most important activity is to walk and to work on gentle motion (both flexion and extension). You should try to take short walks a few times a day. It is important that when resting you work on keeping the knee straight. Avoid putting a pillow behind the knee as this will encourage flexion. Work on range of motion exercises as provided by Physical Therapy. - Start outpatient physical therapy within 2 weeks. - You should wear the ANGELES hose on both legs for 2 weeks. You may remove these at night. You may also use any compression sock in place of the ANGELES hose. - Utilize [employer] to review exercises, see videos on exercises and obtain basic information pertaining to your surgery and your recovery. Dressing: Keep the surgical dressing (underneath the LUANNE wrap) in place for at least one week. After the first week it may be removed and replaced with light gauze and tape or nothing. The wound and dressing may get wet after 3 days but avoid soaking the dressing or otherwise it will need to be changed. Many people prefer covering the dressing with cling wrap (saran wrap) to minimize it from getting soaked. If it gets wet, just pat dry. If it starts to peel off then it will need to be changed. Medications: - You should take Tylenol as your primary pain medication. You may apply ice liberally with the CryoCuff. - You have been prescribed a stronger pain medication Oxycodone for breakthrough pain, take as needed as prescribed. - You have been prescribed Gabapentin to take at night for restlessness and nerve pain. - You will be taking Aspirin 81mg twice a day for DVT prevention unless instructed otherwise. - You have also been prescribed Decadron to take to control post-operative nausea and pain. You received one dose in the hospital and will have one additional dose at home. - If you have constipation you should take Colace or Miralax (both [id number]). It takes most people 3-4 days to have a bowel movement. Follow-up: 2 weeks If you have any acute concerns or questions, please do not hesitate to contact the office at [phone]. You may contact Dr. Lainez with any questions after hours through the hospital at [phone] or on his cell phone at [phone]. Referrals: Blane Lainez MD [ [facility] STAFF PHYSICIAN] - Activity:: Activity as Tolerated Equipment/Supplies:: Walker Diet:: As Tolerated Discharge Orders Discharge Orders: Discharge Order (Routine); Ordered 06/17/22 Ordered By: Blane Lainez DS: Summary Time Spent with Patient providing and/or coordinating discharge services: Less than 30 minutes Status at Discharge Functional status at discharge: uses cane/walker Overall status at discharge: patient is progressing back to baseline Mental Status: mental status grossly normal Speech and Movement: speech and movement normal Mood: congruent mood Affect: normal affect Exam Narrative Exam Narrative: Sitting up in the hospital bed. Alert and oriented x3. Evaluation of the right leg shows a dressing which is clean dry and intact. Range of motion lacks a few degrees of extension. She is able to straight leg raise. Intact ankle dorsiflexion and plantarflexion as well as great toe extension. Sensation intact light touch over the deep and superficial peroneal nerve and tibial nerve. I wakes in the left leg shows similar findings with near complete extension and intact straight leg raise. Sensation is intact throughout with a palpable DP pulse. Psych Mental Status: mental status grossly normal Speech and Movement: speech and movement normal Mood: congruent mood Affect: normal affect DS: Data Vitals/I&O Vitals and I&O: Vital Signs Temperature 36.7 C 06/17/22 03:32 Temperature Source Tympanic 06/17/22 03:32 Pulse 64 06/17/22 03:32 Pulse Rhythm Regular 06/17/22 03:11 Respiratory Rate 21 06/17/22 03:32 Respiratory Effort Non-Labored 06/17/22 03:11 Respiratory Depth Normal 06/17/22 03:11 Respiratory Pattern Normal 06/17/22 03:11 Blood Pressure 93/58 L 06/17/22 03:32 Blood Pressure Mean 100 06/16/22 09:47 Blood Pressure Position Supine 06/16/22 09:47 Pulse Oximetry 97 06/17/22 03:32 Respiratory End-tidal CO2 29 06/16/22 14:20 Oxygen Delivery Method Room Air 06/17/22 03:32 Oxygen Flow Rate 0 06/17/22 03:32 Pain Level 2 06/17/22 03:06 Comment 06/16/22 14:41 Intake & Output 06/16/22 06/16/22 06/17/22 11:59 23:59 11:59 Intake Total 170 / 1672 1502 / 1672 50 / 50 Output Total 3050 / 3050 Balance 170 / -1378 -1548 / -1378 50 / 50 Weight 60 kg 61.518 kg Intake: IV 170 / 1172 1002 / 1172 50 / 50 Oral 500 / 500 Output: Urine 2750 / 2750 Estimated Blood Loss 300 / 300 Other: Urine Color Yellow Urine Appearance Clear Clear Urine Odor None None Emesis Description None Voiding Methods Toilet Toilet Data Completed and Pending Labs on day of discharge: Labs from last 24 hours 06/17/22 06/17/22 06/16/22 05:35 05:35 07:44 WBC Pending RBC Pending Hgb Pending Hct Pending MCV Pending MCH Pending MCHC Pending RDW Pending Plt Count Pending MPV Pending Sodium Pending Potassium Pending Chloride Pending Carbon Dioxide Pending Anion Gap Pending BUN Pending Creatinine Pending Est GFR (CKD-EPI 2020) Pending Glucose Pending Calcium Pending COVID-19 Source Nasal/Nares SARS-CoV-2 (PCR) Negative PFSH All Active Problems Collagenous colitis (Acute) bx proven Contusion of liver (Acute) 06/16/22 pt reports confirmed to be hemangioma Loose right total knee arthroplasty (Acute) Diarrhea (Acute) Tubular adenoma of colon (Acute) Varicose veins of lower extremity (Chronic) Sun-damaged skin (Chronic 12/24/16) Psoriatic arthritis (Chronic 01/15/15) rheumatolgy - [facility] Atypical mole (Chronic 12/24/16) Annual physical exam (Acute 04/04/15) Melanoma (Acute) Spondylolisthesis (Acute) Skin irritation (Acute) Palpitations (Acute) Had Holter Monitor last year Mammographic breast lesion (Acute 01/31/13) Incomplete emptying of bladder (Acute) Hypercalcemia (Acute 07/17/13) Grief at loss of child (Acute 10/01/15) Enlarged lymph node (Acute 09/01/16) Closed fracture of phalanx of finger (Acute 02/24/08) Insomnia (Acute) ADITYA (obstructive sleep apnea) (Chronic ~07/2019) Skin lesion (Acute) Dysphagia (Acute) Dysuria (Acute) UTI - currently on antibiotics Palpitation (Acute) Hip arthritis (Acute) Femoroacetabular impingement of both hips (Acute) Arthritis of right hip (Acute) Splinter (Acute) Xerostomia (Acute) Xerophthalmia (Acute) Throat clearing (Acute) Cervical pain (Acute) History of total right knee replacement (Acute 05/06/21) DOS 05/06/21 Headache (Acute) Painful total knee replacement, right (Acute) Encounter for screening colonoscopy (Acute) Hypertension (Chronic) COVID-19 (Acute ~10/2021) Arthritis of left knee (Acute) Chondrocalcinosis of left knee (Acute) Crepitus of joint of right knee (Acute) Medical History Abnormal laboratory test result (07/17/13) elevated mcv Breast mass seen on mammogram 01/31/13 [facility] [place]; left breast mass Cat 4 Closed fracture of phalanx of finger 02/24/08 right middle distal phalanx Grief at loss of child (10/01/15) Hypercalcemia 07/17/13 Incomplete emptying of bladder Palpitations ? secondary to Arthrotec Pt. had holter monitor Parathyroid adenoma Skin irritation reaction to pool chemicals Spondylolisthesis LBP; L5-S1 Surgical History BUNIONECTOMY 06/28; ROSALINDA Colonoscopy - MAC (03/04/12) 02/2022 History of varicose vein stripping Hx of total knee replacement 04/2021 Open Carpal Tunnel release (~1982) RIGHT Parathyroidectomy (06/02/17) S/P abdominal hysterectomy 06/14/99 ovary intact; fibroid disease S/P meniscectomy left-2006; right-2009 S/P DELMY (total abdominal hysterectomy) Status post fusion of joint of finger Right index and middle DIP joints Family History Mother , 89 Sjogren's syndrome Heart disease Hyperlipidemia Stroke Father , AGE 51 Alcohol abuse Cirrhosis of liver Sister Breast cancer Sister Sjogren's syndrome Hyperlipidemia Sister Diabetes Hyperlipidemia Myocardial infarction Heart disease Sister Heart disease Sister No problems noted. Sister , age 63 Autoimmune disease Maternal Grandfather , age 88 Multiple myeloma Paternal Grandfather , age 61 Gangrene stomach No problems noted. Maternal Grandmother , age 83 Breast cancer Heart disease [place] Paternal Grandmother Heart disease Son , AGE 26 Substance abuse Alcohol abuse Daughter No problems noted. FAMILY HISTORY Autoimmune disease Sister No problems noted. Social History Smoking/Tobacco Use Status: Never Smoking risk assessment performed?: Yes Alcohol Intake: current Alcohol Intake frequency: a few times a month Alcohol type: wine and hard liquor Drug use: Never Substance use type: does not use Counseling given: No Counseling provided: none Caregiver/Support person: No Household members: spouse Housing: house Communication Needs: None Do you need help understanding health information?: Never current occupation: [employer] Pets and animals: No Sexually active: Yes Do you think of yourself as: straight/heterosexual Current gender identity: female What is your relationship status?: How often do you talk on the phone with friends or family?: three or more times per week How often do you get together with friends or relatives?: never How often do you attend confucianism or anabaptist services?: 4 or more times per year Do you belong to any clubs or organized social groups?: yes Panel score (0-1 are the most socially isolated patients): 4 What type of physical activity do you participate in: walking, weight lifting, other Details: cardio, core, karate, strength training, etc. and yoga Duration: 45-60 minutes/day Frequency: 3-4 times per week Anna/Mosque: Mandaeism Special anna needs: No Seatbelt use: always Helmet use: Yes Helmet use: sometimes Drive intox or ride w/intox milk pickup truck driver: No Do you feel safe at home: Yes Do you feel safe in your relationship?: Yes Victim of physical abuse: No Victim of emotional abuse: No Victim of sexual abuse: No Would you like helpful sources: No Time Spent with Patient Time Spent with Patient: <45 minutes Time was spent: preparing to see the patient(eg.review tests) and counseling the patient
[2022-06-17 07:20] LABS: HCT 35.4 % (36.0-46.0); HGB 11.8 g/dL (11.2-15.7); MCH 31.7 pg (27.0-33.0); MCHC 33.3 % (32.0-36.0); MCV 95 fL (80-95); MPV 9.4 fL (8.0-11.0); Platelet Count 204 10^3/uL (130-400); RBC 3.72 10^6/uL (3.93-5.22); RDW 12.4 % (11.7-14.6); RDW-SD 43.3 fL; WBC 10.72 10^3/uL (4.4-10.8)
[2022-06-17 07:38] LABS: Anion Gap 5.5 mmol/L (3-11); BUN 20 mg/dL (7-18); CO2 26.5 mmol/L (21.0-32.0); CREATININE 0.9 mg/dL (0.55-1.02); Calcium 8.9 mg/dL (8.5-10.1); Chloride 103 mmol/L (98-107); Estimated GFR 72.28 (mL/min/1.73m2); Glucose 111 mg/dL (74-106); Sodium 135 mmol/L (136-145)
[2022-06-17] MEDS: oxyCODONE 5 MG TAB PO (08:09)
[2022-06-17] MEDS: Pantoprazole 40 MG TABCR PO (08:13)
[2022-06-17] MEDS: Dexamethasone 4 MG TAB PO (08:14)
[2022-06-17] MEDS: Aspirin E.C. 81 MG TABEC PO (08:15)
[2022-06-17] MEDS: Midodrine 2.5 MG TAB 5 MG PO (08:15)
[2022-06-17] MEDS: Normal Saline Flush 10 ML SYR IV (08:17)
[2022-06-17 08:18] VITALS: BP 100/62; PULSE 72; RESP 18; TEMP 36.6; O2SAT 97
[2022-06-17] MEDS: ceFAZolin 1 GM/50 ML BAG IVPB (08:19)
--- NOTE | 2022-06-17 09:20 | PT.INTREAT ---
Date of service: 06/17/22 Time of Service: 08:36 PT Notes Visit Reasons: Left Knee DJD and Right TKA Loosening Inpatient Physical Therapy Treatment Note [facility] Date: 06/17/2022 PRECAUTIONS: WBAT B, activity as tolerated SUBJECTIVE: Kasandra is pleasant and agreeable to participate in PT. She reports that she has some pain in B knees this morning, however, she is looking forward to going home later this morning. OBJECTIVE: PAIN: Patient c/o L knee pain > R knee pain with ther ex BED MOBILITY/TRANSFERS Supine-sit: I Sit-stand: I Stand-sit: I GAIT Assistive Device: FWW Weight bearing: WBAT B Assist: S Distance: 250' Deviation: Slightly antalgic gait, step-through gait pattern THEREX: Issued and instructed patient in a LE strengthening and stabilization HEP, completed in both long-sitting and seated positions, to include: ankle pumps, quad sets, glute sets, heel slides, SLR, seated hip flexion and seated marches. Patient ends session with cryocuff to B knees. STAIRS: Up/down 3x4 and 2x6 using B rails and a step-to pattern with supervision. ASSESSMENT: Patient tolerated session with complaint of knee pain L>R with ther ex. She was able to tolerate a progression in gait distance with FWW support and supervision. She demonstrates independence with bed mobility and transfers at this time. PLAN: Patient to discharge to home later today, per provider. Recommend follow up with OP PT. TREATMENT CODE/TIME: 45 minutes; 10194 x2, [id number] (08:36)
--- NOTE | 2022-06-17 18:00 | IN_ITS ---
Date of service: 06/18/22 PT Notes Visit Reasons: Left Knee DJD and Right TKA Loosening Physical Therapy Discharge Summary Date: 06/17/2022 Dates of Service: 06/16/2022 through 06/17/2022 This is a clinical summary of care provided for the duration of dates listed above. No charge was made in the completion of this documentation. Referring Doctor: Blane Lainez MD PT Orders: PT CONSULT: S/P Ortho surgery.? S/P L TKA and revision right TKA Precautions: WBAT on BLE with AD. Patient Profile/Admitting Diagnosis: Ally is a 62-year-old female with painful right knee from R knee DJD,? loose right tibial component of right TKA, and degenerative joint disease of the left knee status post left total knee arthroplasty and right TKA revision of tibial component on postoperative day 1. PMHX: All Active Problems?(Updated 06/16/22 @ 07:59 by Sandy Albrecht) Collagenous colitis (Acute) bx proven Contusion of liver (Acute) 06/16/22 pt reports confirmed to be hemangioma Loose right total knee arthroplasty (Acute) Diarrhea (Acute) Tubular adenoma of colon (Acute) Varicose veins of lower extremity (Chronic) Sun-damaged skin (Chronic 12/24/16) Psoriatic arthritis (Chronic 01/15/15) rheumatolgy - [facility] Atypical mole (Chronic 12/24/16) Annual physical exam (Acute 04/04/15) Melanoma (Acute) Spondylolisthesis (Acute) Skin irritation (Acute) Palpitations (Acute) Had Holter Monitor last year Mammographic breast lesion (Acute 01/31/13) Incomplete emptying of bladder (Acute) Hypercalcemia (Acute 07/17/13) Grief at loss of child (Acute 10/01/15) Enlarged lymph node (Acute 09/01/16) Closed fracture of phalanx of finger (Acute 02/24/08) Insomnia (Acute) ADITYA (obstructive sleep apnea) (Chronic ~07/2019) Skin lesion (Acute) Dysphagia (Acute) Dysuria (Acute) UTI - currently on antibioticsPalpitation (Acute) Hip arthritis (Acute) Femoroacetabular impingement of both hips (Acute) Arthritis of right hip (Acute) Splinter (Acute) Xerostomia (Acute) Xerophthalmia (Acute) Throat clearing (Acute) Cervical pain (Acute) History of total right knee replacement (Acute 05/06/21) DOS 05/06/21 Headache (Acute) Painful total knee replacement, right (Acute) Encounter for screening colonoscopy (Acute) Hypertension (Chronic) COVID-19 (Acute ~10/2021) Arthritis of left knee (Acute) Chondrocalcinosis of left knee (Acute) Crepitus of joint of right knee (Acute) Medical History?(Updated 06/16/22 @ 07:59 by Sandy Albrecht) Abnormal laboratory test result (07/17/13) elevated mcv Breast mass seen on mammogram [place]/13 [facility] [place] breast mass Cat 4 Closed fracture of phalanx of finger 02/24/08? right middle distal phalanx Grief at loss of child (10/01/15) Hypercalcemia 07/17/13 Incomplete emptying of bladder Palpitations ? secondary to Arthrotec Pt. had holter monito rParathyroid adenoma Skin irritation reaction to pool chemicals Spondylolisthesis LBP; L5-S1 Surgical History? BUNIONECTOMY 06/28; ROSALINDA Colonoscopy - [facility] (03/04/12) 02/2022 History of varicose vein stripping Hx of total knee replacement 04/2021 Open Carpal Tunnel release (~1982) RIGHT Parathyroidectomy (06/02/17) S/P abdominal hysterectomy 06/14/99 ovary intact; fibroid disease S/P meniscectomy left-2006; right-2009 S/P DELMY (total abdominal hysterectomy) Status post fusion of joint of finger Right index and middle DIP joints Social History/Home Situation: Lives with in a private home with 3 steps to enter with a post on 1 side that she can hold onto.? 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 Equipment Owned/DME: FWW Subjective: NT. See most recent SHEEP OR CALF GRADER notes. Objective: General Observation: NT. See most recent SHEEP OR CALF GRADER notes. Mental Status: NT. See most recent SHEEP OR CALF GRADER notes. Pain: NT. See most recent SHEEP OR CALF GRADER notes. Vital Signs:? NT. See most recent SHEEP OR CALF GRADER notes. ROM: Right Lower Extremity: Hip flexion WFL. Hip abduction WFL. Knee flexion 10 degrees to 100 degrees.? Knee extension -10 degrees.? Ankle dorsiflexion WFL. Ankle plantarflexion WFL. Left Lower Extremity: Right Lower Extremity: Hip flexion WFL. Hip abduction WFL. Knee flexion 10 degrees to 100 degrees.? Knee extension -10 degrees.? Ankle dorsiflexion WFL. Ankle plantarflexion WFL. Strength: Right Lower Extremity: Hip flexors 4/5. Hip abductors 4/5. Knee flexors 3-/5. Knee extensors 3+/5. Ankle dorsiflexors 5/5. Ankle plantarflexors 5/5. Left Lower Extremity:Hip flexors 4/5. Hip abductors 4/5. Knee flexors 3-/5. Knee extensors 3+/5. Ankle dorsiflexors 5/5. Ankle plantarflexors 5/5. Sensation: Reports some mild burning sensation on the dorsum of the L foot.? Intact as to pain and light pressure in B LE BED MOBILITY/TRANSFERS? Supine-sit: I ? Sit-stand: I? Stand-sit: I ? GAIT? Assistive Device: FWW ? Weight bearing: WBAT B Assist: S ? Distance: 250' ? Deviation: Slightly antalgic gait, step-through gait pattern ? STAIRS: Up/down 3x4 and 2x6 using B rails and a step-to pattern with supervision.? Balance: Static Sitting: Normal Dynamic Sitting: Normal Static Standing: Fair Dynamic Standing: Fair Assessment: Ally requires the use of a front-wheeled walker for all mobility ADL performance maximize independence and reduce fall risk.? Patient presents with clinical signs and symptoms consistent with current/admitting diagnoses that have resulted to mobility limitations, gait instability, generalized weakness, and impairment of motor control as demonstrated by the following impairment level findings: 1.? Decreased strength to B knee major muscle groups 2.? Impaired standing balance 3.? Limitation of joint range of motion in B knees Impairments are contributing to the following functional limitations: 1.? Inability to safely ambulate without assistive device 2.? Increase completion time for mobility ADL performance 3.? Increased fall risk 4.? [facility] deficit score of 11% Goals: Goals X1 week 1. Supine-Sit independent MET 2. Sit-Supine independent MET 3. Sit-Stand independent MET 4. Stand-Sit independent MET 5. Bed-Chair independent MET 6. Chair-Bed independent MET 7. Independent gait on level surface with use of FWW for at least 300 feet without report of pain nor dyspnea NOT MET 8. Independent stair negotiation while holding onto bilateral rails for at least 3 steps without report of pain nor dyspnea NOT MET 9. Independent with home exercise program NOT MET 10. Good static and dynamic standing balance/tolerance NOT MET DISCHARGE RECOMMENDATIONS: [] ? Home with no services [] [] ? Home with services [specify] [X] ? Home with outpatient PT.? Home when medically cleared by orthopedic surgeon.? Recommend outpatient PT services in order to optimize functional mobility outcomes and facilitate independent community ambulation as well as full return to vocational activities. [] ? SNF for continued rehabilitation [] [] ? Database Software Technician Care [] [] ? SNF versus LTC based on ability to participate and progress [] TREATMENT CODE/TIME: NC Thank you for the opportunity to participate in the care of this patient. Tiffanie Brooks PT, DPT, CLT [facility] [place], [place]
== END 2022-06-17 11:18 | disposition home or self-care (01) | DRG 462 ==
LOC: PDS 07:31 → MS 14:42
PROVIDERS: Admitting Provider Student in an Organized Health Care Education/Training Program; PCP Family Medicine; Visit Provider Student in an Organized Health Care Education/Training Program
PROC: 0SRD0J9 Replacement of Left Knee Joint with Synthetic Substitute, Cemented, Open Approach (ICD-10-PCS; CPT 27487; principal; 2022-06-16 09:45)
PROC: 0SRD0J9 Replacement of Left Knee Joint with Synthetic Substitute, Cemented, Open Approach (ICD-10-PCS; CPT 27447; 2022-06-16 09:45)
DX: T84.032A Mechanical loosening of internal right knee prosthetic joint, initial encounter (principal); T84.84XA Pain due to internal orthopedic prosthetic devices, implants and grafts, initial encounter; Z96.651 Presence of right artificial knee joint; M17.12 Unilateral primary osteoarthritis, left knee; I10 Essential (primary) hypertension; M11.262 Other chondrocalcinosis, left knee; G47.33 Obstructive sleep apnea (adult) (pediatric); K52.831 Collagenous colitis; M43.10 Spondylolisthesis, site unspecified; R33.8 Other retention of urine
CPT/HCPCS: 27447; 27486; 36415; 76942; 80048; 85027; 87635; 97110; 97162; 97530; 73560; G0378; J0690; J1100; J2250; J2370; J2405; J2704; J8540

== ENCOUNTER 2022-06-29 10:46 | Outpatient (CLI) | payer BC, SELFPAY ==
--- NOTE | 2022-06-29 10:15 | DI.RAD_ITS ---
Exam(s) XR KNEE LT 1V XR KNEE RT 1V XR STANDING ALIGNMENT EXAM: XR STANDING ALIGNMENT and bilateral XR knee 1 V CLINICAL HISTORY: 1ST POST OP. TECHNIQUE: 2D digital imaging was performed. Six images were obtained. COMPARISON: CR XR STANDING ALIGNMENT from 05/19/2021 FINDINGS: BONES: There is joint space narrowing of the hips bilaterally. Surgical clips are seen in the pelvis . The patient has bilateral total knee replacements. The orthopedic hardware appears intact. No ev idence of hardware failure. The ankles are well maintained.There is no significant leg length discre pancy. SOFT TISSUE: Normal. IMPRESSION: Bilateral total knee replacements. DATA REPOSITORY: RADIATION DOSE DELIVERED:
== END 2022-06-29 10:47 | disposition home or self-care (01) ==
LOC: DIORS 10:46
PROVIDERS: PCP Family Medicine; Referring Provider Family Medicine; Visit Provider Physician Assistant
DX: Z96.652 Presence of left artificial knee joint (principal); Z96.651 Presence of right artificial knee joint
CPT/HCPCS: 73560; 77073

== ENCOUNTER 2022-07-17 11:00 | Outpatient (CLI) | payer BC, SELFPAY ==
[2022-07-17 12:14] LABS: HCT 39.8 % (36.0-46.0); MCH 31.7 pg (27.0-33.0); MCHC 32.7 % (32.0-36.0); MCV 97 fL (80-95); MPV 9.2 fL (8.0-11.0); Platelet Count 246 10^3/uL (130-400); RDW 12.7 % (11.7-14.6); RDW-SD 45.1 fL; WBC 5.39 10^3/uL (4.4-10.8)
[2022-07-17 12:40] LABS: ALT 30 U/L (14-59); AST 26 U/L (15-37); Alkaline Phosphatase 87 U/L (46-116); BUN 19 mg/dL (7-18); Bilirubin, Total 0.6 mg/dL (0.2-1.0); CREATININE 0.7 mg/dL (0.55-1.02); Calcium 9.8 mg/dL (8.5-10.1); Calculated LDL 176 mg/dL (<100); Chloride 104 mmol/L (98-107); Cholesterol 281 mg/dL (<200); Estimated GFR 97.72 (mL/min/1.73m2); Glucose 97 mg/dL (74-106); HDL Cholesterol 75 mg/dL (40-60); Potassium 3.9 mmol/L (3.5-5.1); Sodium 139 mmol/L (136-145); TSH (W/Ref FT4) 1.27 uIU/mL (0.36-3.74); Total Protein 7.2 g/dL (6.4-8.2); Triglyceride 151 mg/dL (<150)
== END 2022-07-17 11:01 | disposition home or self-care (01) ==
LOC: LOS 11:07
PROVIDERS: PCP Family Medicine; Visit Provider Family Medicine
DX: Z00.00 Encounter for general adult medical examination without abnormal findings (principal)
CPT/HCPCS: 36415; 80053; 80061; 85027; 84443

== ENCOUNTER 2022-07-31 00:29 | Outpatient (CLI) | payer BC, SELFPAY ==
--- NOTE | 2022-07-31 15:50 | DI.DEXA_ITS ---
Exam(s) XR DEXA BONE DENSITY W/WO SAUL EXAM: XR DEXA BONE DENSITY W/WO SAUL CLINICAL HISTORY: medication - prednisone,CHRONIC USE,R69,SCREENING FOR OSTEOPOROSIS TECHNIQUE: [employer] C densitometer analysis of left hip, lumbar spine and left forearm. COMPARISON: DX DEXA BONE DENSITY WITH SAUL from 08/13/2015 CR XR DEXA BONE DENSITY W/WO SAUL from 05/08/2019 FINDINGS: Lateral view of the thoracic and lumbar spine shows no evidence of compression fractures. Bone mineral density measurements of the lumbar spine correspond to a total T-score of -1.7, in the osteopenic range. No significant change from priors. Bone mineral density measurements of the left hip correspond to a total T-score of -1.6. The femora l neck T-score is -1.8, in the osteopenic range. This represents a 5.5 percent decrease compared wi 2019 and a increase when compared with 2016.. The left forearm bone mineral density measurements correspond to a T-score of the distal 3rd of -0.2 , in the normal range. This is unchanged from 2019 represents a 6.7 percent decrease from 2016.. IMPRESSION: Osteopenia of the lumbar spine and left hip. Normal bone mineral density of the forearm.
== END 2022-07-31 00:49 ==
LOC: DI 00:29
PROVIDERS: PCP Family Medicine; Visit Provider Family Medicine
DX: Z13.820 Encounter for screening for osteoporosis (principal); M85.89 Other specified disorders of bone density and structure, multiple sites
CPT/HCPCS: 77080

== ENCOUNTER 2022-08-01 13:56 | Outpatient (CLI) | payer BC, SELFPAY ==
--- NOTE | 2022-08-01 14:00 | DI.RAD_ITS ---
Exam(s) XR CHEST 2V PA LATERAL EXAM: XR CHEST 2V PA LATERAL CLINICAL HISTORY: evaluate pnuemonia TECHNIQUE: 2D digital imaging was performed. COMPARISON: CR CHEST 2 VIEWS PA,LAT from 06/16/2016 CR,RF RF BARIUM SWALLOW from 12/21/2019 CR XR DEXA BONE DENSITY W/WO SAUL from 07/31/2022 FINDINGS: HEART: Normal size. Aorta: Not dilated. PULMONARY VASCULATURE: Normal. LUNGS: Hyperinflation. Question of mild patchy density in the right upper and mid lung field on the PA view. PLEURAL SPACE: No pleural effusion or pneumothorax. BONE:Unremarkable for age. IMPRESSION: Question of faint right-sided infiltrates. DATA REPOSITORY: RADIATION DOSE DELIVERED:
--- NOTE | 2022-08-01 14:29 | DI.VRAD_ITS ---
PROCEDURE INFORMATION: Exam: XR Chest Exam date and time: 08/01/2022 2:17 PM Age: 61 years old Clinical indication: Cough TECHNIQUE: Imaging protocol: Radiologic exam of the chest. Views: 2 views. COMPARISON: CR CHEST 2 VIEWS PA,LAT 06/16/2016 12:09 PM FINDINGS: Lungs: Mild opacity in the medial right base may represent atelectasis or pneumonia.. Pleural spaces: Unremarkable. No pleural effusion. No pneumothorax. Heart/Mediastinum: Unremarkable. No cardiomegaly. Bones/joints: Unremarkable. IMPRESSION: Mild opacity in the medial right base may represent atelectasis or pneumonia.. Dictated and Authenticated by: Eileen Ocampo MD. Ordering:YASMIN Xiong MD
== END 2022-08-01 14:16 ==
PROVIDERS: PCP Family Medicine; Visit Provider Nurse Practitioner Family
DX: J06.9 Acute upper respiratory infection, unspecified (principal); R91.8 Other nonspecific abnormal finding of lung field
CPT/HCPCS: 71046

== ENCOUNTER 2022-08-06 00:44 | Outpatient (CLI) | payer BC, SELFPAY ==
--- NOTE | 2022-08-06 06:45 | DI.MAMMO_ITS ---
Exam(s) MAMMO SCREENING EXAM: MAMMO SCREENING CLINICAL HISTORY: screening,Z12.39 TECHNIQUE: Bilateral full field digital CC and MLO mammographic images were obtained with 3D tomosyn thesis and utilizing computer aided detection (CAD). COMPARISON: Available for comparison. FINDINGS: Masses/Architectural Distortion: None seen. There is again seen a biopsy clip in the left breast. Microcalcifications: No suspicious pleomorphic-type are seen. Skin Thickening/Nipple Retraction: None. IMPRESSION: 1. No significant interval change with no specific features of malignancy noted. 2. Unless there is more urgent need, screening mammography is recommended, as per [place] [employer] guidelines. BI-RADS Category 1 - Negative Breast Density - Category C - Heterogeneously dense Breast density category C or D implies that the patient has dense breast tissue. Dense breast tissue is very common and is not abnormal but dense breast tissue can make it harder to find cancer on a ma mmogram. Also, dense breast tissue may increase their breast cancer risk. This information about the result of the mammogram report was provided to the patient to raise their awareness. Use this report when you speak with the patient about their risks for breast cancer, which includes their family hist ory. At that time, you may recommend for more screening tests (Ultrasound or MRI) as they might be us eful based on their risk. A negative radiographic report should not delay biopsy if a dominant or clinically suspicious mass is present. Up to ten percent of cancers are not identified on mammography. A negative report may reinforce clinical impression. Adenosis and dense breasts may obscure an underlying neoplasm. False positive reports average 6 to 10%. Patient will receive a letter notifying them of these results.
== END 2022-08-06 01:04 ==
LOC: DI 00:44
PROVIDERS: PCP Family Medicine; Visit Provider Family Medicine
DX: Z12.31 Encounter for screening mammogram for malignant neoplasm of breast (principal)
CPT/HCPCS: 77063; 77067

== ENCOUNTER 2022-10-26 10:47 | Outpatient (CLI) | payer BC, SELFPAY ==
--- NOTE | 2022-10-26 09:45 | DI.RAD_ITS ---
Exam(s) XR KNEE RT 2V AP,LAT EXAM: XR KNEE RT 2V AP,LAT INDICATION: s/p right TKA. COMPARISON: CR XR KNEE RT 2V AP,LAT from 06/16/2022 CR XR STANDING ALIGNMENT from 06/29/2022 CR XR KNEE LT 1V from 06/29/2022 CR XR KNEE RT 1V from 06/29/2022 CR XR KNEE LT 2V AP,LAT from 10/26/2022 TECHNIQUE: 2D digital imaging was performed. Two views. FINDINGS: There has been no change in the alignment of the total knee prosthesis. No suspicious bony lucencies are seen. A joint effusion and soft tissue swelling remains present. DATA REPOSITORY: RADIATION DOSE DELIVERED:
--- NOTE | 2022-10-26 09:45 | DI.RAD_ITS ---
Exam(s) XR KNEE LT 2V AP,LAT EXAM: XR KNEE LT 2V AP,LAT INDICATION: s/p left TKA. COMPARISON: CR XR STANDING ALIGNMENT from 06/29/2022 CR XR KNEE RT 1V from 06/29/2022 TECHNIQUE: 2D digital imaging was performed. Two views. FINDINGS: There has been no change in the alignment of the total knee prosthesis. There are no suspicious surr ounding bony lucencies. DATA REPOSITORY: RADIATION DOSE DELIVERED:
== END 2022-10-26 10:48 | disposition home or self-care (01) ==
LOC: DIORS 10:48
PROVIDERS: PCP Family Medicine; Referring Provider Family Medicine; Visit Provider Physician Assistant
DX: Z96.652 Presence of left artificial knee joint (principal); Z96.651 Presence of right artificial knee joint
CPT/HCPCS: 73560

== ENCOUNTER → 2023-11-10 02:03 | Outpatient (CLI) | payer BC, SELFPAY ==
--- NOTE | 2023-11-10 15:18 | DI.MAMMO_ITS ---
Exam(s) MAMMO SCREENING EXAM: MAMMO SCREENING CLINICAL HISTORY: screening, Z12.39 TECHNIQUE: Mammograms were interpreted according to the usual protocol including computer analysis w Graphic[employer] CAD system, tomosynthesis and C-view imaging. COMPARISON: 2013 through 2022 FINDINGS: The breasts are composed of heterogeneously dense fibroglandular densities, Breast Density category C . No suspicious masses or suspicious microcalcifications are seen. A biopsy marker clip is again noted in the central left breast. No skin thickening or abnormal axillary lymph nodes are seen. There has been no significant change from prior exams. IMPRESSION: BI-RADS Category 1, Negative mammogram. Yearly screening mammography is recommended. Breast Density Category C, heterogeneously Dense. The mammogram demonstrates the patient's breast tissue is dense. Dense breast tissue is very common a nd is not abnormal but dense breast tissue can make it harder to find cancer on a mammogram. Also, de nse breast tissue may increase breast cancer risk. This information about the result of the mammogram report was provided to the patient to raise their awareness. Use this report when you speak with the patient about their risks for breast cancer, which includes their family history. At that time, you may recommend additional screening tests (Ultrasound or MRI) as they might be useful based on their r isk. A negative radiographic report should not delay biopsy if a dominant or clinically suspicious mass is present. Up to ten percent of cancers are not identified on mammography. A negative report may reinforce clinical impression. Adenosis and dense breasts may obscure an underlying neoplasm. False positive reports average 6 to 10%.
== END ==
PROVIDERS: PCP Family Medicine; Visit Provider Family Medicine
DX: Z12.31 Encounter for screening mammogram for malignant neoplasm of breast (principal)
CPT/HCPCS: 36415; 77063; 77067; 80053; 80061; 82607; 84443

== ENCOUNTER 2023-11-15 11:17 | Outpatient (CLI) | payer BC, SELFPAY ==
--- NOTE | 2023-11-15 09:15 | DI.RAD_ITS ---
Exam(s) XR KNEE RT 2V AP,LAT EXAM: XR KNEE RT 2V AP,LAT CLINICAL HISTORY: RIGHT KNEE PAIN. TECHNIQUE: 2D digital imaging was performed. Two images were obtained. AP and lateral views were ob tained. COMPARISON: CR XR KNEE RT 2V AP,LAT from 10/26/2022 FINDINGS: BONES: There are stable post operative changes of a right total knee replacement present. There is s table lucency seen adjacent to the tibial component. No fracture or dislocation. JOINTS: The orthopedic hardware is in good position. No evidence of hardware loosening. There does appear to be a small joint effusion. SOFT TISSUE: Normal. IMPRESSION: Stable right total knee replacement. Small joint effusion. DATA REPOSITORY: RADIATION DOSE DELIVERED:
--- NOTE | 2023-11-15 09:15 | DI.RAD_ITS ---
Exam(s) XR KNEE LT 2V AP,LAT EXAM: XR KNEE LT 2V AP,LAT CLINICAL HISTORY: LEFT KNEE PAIN. TECHNIQUE: 2D digital imaging was performed. Two images were obtained. AP and lateral views were ob tained. COMPARISON: CR XR KNEE LT 2V AP,LAT from 10/26/2022 FINDINGS: BONES: There are stable post operative changes of a left total knee replacement present. No fracture or dislocation. JOINTS: The orthopedic hardware is in good position. No evidence of hardware loosening. SOFT TISSUE: Normal. IMPRESSION: Stable left total knee replacement. DATA REPOSITORY: RADIATION DOSE DELIVERED:
== END 2023-11-15 11:18 | disposition home or self-care (01) ==
LOC: DIORS 11:17
PROVIDERS: PCP Family Medicine; Referring Provider Family Medicine; Visit Provider Student in an Organized Health Care Education/Training Program
DX: Z96.653 Presence of artificial knee joint, bilateral; Z47.1 Aftercare following joint replacement surgery
CPT/HCPCS: 73560

== ENCOUNTER 2023-11-15 13:08 | Outpatient (REF) | payer BC, SELFPAY ==
[2023-11-15 14:05] LABS: Clarity Clear; Mononuclear Cells 89 %; Nucleated Cells 394 uL (0); Polynuclear Cells 11 %
[2023-11-15 14:08] LABS: Clarity Clear
[2023-11-15 14:11] LABS: Nucleated Cells 690 uL (0)
[2023-11-16 10:44] LABS: Mononuclear Cells 73 %; Polynuclear Cells 27 %
== END 2023-11-15 13:09 | disposition home or self-care (01) ==
LOC: LBN 13:08
PROVIDERS: PCP Family Medicine; Visit Provider Student in an Organized Health Care Education/Training Program
DX: Z96.653 Presence of artificial knee joint, bilateral; Z47.1 Aftercare following joint replacement surgery
CPT/HCPCS: 87070; 87205; 89051

== ENCOUNTER → 2023-11-24 00:16 | Outpatient (CLI) | payer BC, SELFPAY ==
--- NOTE | 2023-11-24 06:30 | DI.CT_ITS ---
Exam(s) CT LOWER EXTREMITY LT WO EXAM: CT LOWER EXTREMITY LT WO CLINICAL HISTORY: PAIN,?LOOSENING, HX REVISION TOTAL REPLACEMENT RT KNEE JOINT. TECHNIQUE: Imaging Protocol: Axial computed tomography images with coronal and sagittal reformatted images were created and reviewed. CONTRAST MATERIAL: Intravenous: None COMPARISON: CT CT LOWER EXTREMITY RT WO from 11/24/2023 FINDINGS: OSSEOUS: There is a total knee prosthesis. No fractures evident. The tibial component does not exhibit similar findings to the opposite side to suggest loosening. Also no loosening of the femoral component. IMPRESSION: No fractures nor obvious loosening when compared to the opposite side. RADIATION DOSE DELIVERED: 578.29mGy.cm Total DLP DATA REPOSITORY: All CT scans at this facility are submitted to the National Radiology Data Registry (NRDR) Dose Index Registry (DIR) with the [employer] ([employer]). RADIATION OPTIMIZATION: All CT scans at this facility use at least one of these dose optimization te chniques: automated exposure control; mA and/or kV adjustment per patient size (includes targeted exa ms where dose is matched to clinical indication); or iterative reconstruction.
--- NOTE | 2023-11-24 06:30 | DI.NM_ITS ---
Exam(s) NM BONE SCAN 3 PHASE EXAM: NM BONE SCAN 3 PHASE CLINICAL HISTORY: PAIN, ?LOOSENING LT TOTAL KNEE REPLACEMENT. TECHNIQUE: Injected Dose: 25 mCi Tc-99m MDP COMPARISON: CR XR KNEE RT 1V from 04/29/2021 CR XR STANDING ALIGNMENT from 05/19/2021 CR XR KNEE RT 3V AP,LAT,KATERINE from 10/27/2021 CR XR KNEE RT 2V AP,LAT from 02/02/2022 CR XR KNEE LT 2V AP,LAT from 11/15/2023 CR XR KNEE RT 2V AP,LAT from 11/15/[address] LOWER EXTREMITY RT WO from 11/24/2023 FINDINGS: Immediate post-injection/perfusion phase: No significant asymmetric uptake. Blood pool-equilibrium images: No significant findings Delayed phase: There is increased activity subjacent to both sides the tibial component of the right knee. Concerning for loosening. No abnormal similar activity in the opposite-left knee. There mild increased uptake seen in the region of the medial femoral condyle of the right knee. Whole body images reveal some uptake consistent with relatively symmetrical degenerative changes in t he midfoot bilaterally. Mild increased uptake in the lower lumbar spine is most probably degenerativ e. No evidence to suggest osseous metastatic disease. IMPRESSION: 1. Findings are suspicious for loosening of the right knee prosthesis tibial component DATA REPOSITORY:
--- NOTE | 2023-11-24 06:30 | DI.CT_ITS ---
Exam(s) CT LOWER EXTREMITY RT WO EXAM: CT LOWER EXTREMITY RT WO CLINICAL HISTORY: PAIN, ?LOOSENING TOTAL LT KNEE REPLACEMENT, T84.84XA, Z96.652. TECHNIQUE: Imaging Protocol: Axial computed tomography images with coronal and sagittal reformatted images were created and reviewed. CONTRAST MATERIAL: Intravenous: None COMPARISON: Nuclear bone scan reviewed FINDINGS: OSSEOUS: There is some lucency subjacent to the tibial component of the prosthesis bilaterally. Susp icious for loosening IMPRESSION: Tibial component loosening RADIATION DOSE DELIVERED: 578.29mGy.cm Total DLP DATA REPOSITORY: All CT scans at this facility are submitted to the National Radiology Data Registry (NRDR) Dose Index Registry (DIR) with the [employer] (ACR). RADIATION OPTIMIZATION: All CT scans at this facility use at least one of these dose optimization te chniques: automated exposure control; mA and/or kV adjustment per patient size (includes targeted exa ms where dose is matched to clinical indication); or iterative reconstruction.
== END ==
PROVIDERS: PCP Family Medicine; Visit Provider Student in an Organized Health Care Education/Training Program
DX: Z96.653 Presence of artificial knee joint, bilateral (principal); T84.84XA Pain due to internal orthopedic prosthetic devices, implants and grafts, initial encounter; X58.XXXA Exposure to other specified factors, initial encounter
CPT/HCPCS: 73700; 78315

== ENCOUNTER 2023-11-30 08:58 | Outpatient (CLI) | payer BC, SELFPAY ==
[2023-12-01 11:46] LABS: Lyme Ab w Rflx to Lyme Confirm Negative (Negative)
[2023-12-03 23:47] LABS: Anaplasma phagocytophilum Negative (Negative); B. miyamotoi PCR Negative (Negative); Babesia divergens/MO-1 Negative (Negative); Babesia duncani Negative (Negative); Babesia microti Negative (Negative); Ehrlichia chaffeensis Negative (Negative); Ehrlichia ewingii/canis Negative (Negative); Ehrlichia muris eauclairensis Negative (Negative)
== END 2023-11-30 08:59 | disposition home or self-care (01) ==
LOC: LBO 08:58
PROVIDERS: PCP Family Medicine; Visit Provider Family Medicine
DX: L98.9 Disorder of the skin and subcutaneous tissue, unspecified (principal)
CPT/HCPCS: 36415; 87798; 86618

== ENCOUNTER 2024-01-20 01:47 | Outpatient (CLI) | payer BC, SELFPAY ==
[2024-01-21 12:24] LABS: Lyme Ab w Rflx to Lyme Confirm Negative (Negative)
== END 2024-01-20 01:48 | disposition home or self-care (01) ==
LOC: LBO 01:47
PROVIDERS: PCP Family Medicine; Visit Provider Internal Medicine
DX: A69.20 Lyme disease, unspecified (principal)
CPT/HCPCS: 36415; 86618

== ENCOUNTER 2024-04-18 02:33 | Outpatient (CLI) | payer BC, SELFPAY ==
[2024-04-18 10:29] LABS: Calculated LDL 110 mg/dL (<100); Cholesterol 196 mg/dL (<200); HDL Cholesterol 74 mg/dL (40-60); Triglyceride 61 mg/dL (<150)
== END 2024-04-18 02:34 | disposition home or self-care (01) ==
LOC: LBO 02:33
PROVIDERS: PCP Family Medicine; Visit Provider Family Medicine
DX: I10 Essential (primary) hypertension (principal)
CPT/HCPCS: 36415; 80061

== ENCOUNTER 2024-05-01 15:11 | Outpatient (CLI) | payer BC, SELFPAY ==
[2024-05-01 15:20] LABS: Abs Immature Grans 0.01 10^3/uL (0.0-0.06); Absolute Basophil Count 0.07 10^3/uL (0.0-0.2); Absolute Eosinophil Count 0.47 10^3/uL (0.0-0.7); Absolute Lymphocyte Count 2.22 10^3/uL (1.2-3.4); Absolute Monocyte Count 0.45 10^3/uL (0.1-0.8); Absolute Neutrophil Count 2.02 10^3/uL (1.2-6.7); Basophils % 1.3 %; HCT 39.7 % (36.0-46.0); HGB 13.2 g/dL (11.2-15.7); Immature Grans % 0.2 %; Lymphocytes % 42.4 %; MCHC 33.2 % (32.0-36.0); MCV 96 fL (80-95); MPV 9.7 fL (8.0-11.0); Monocytes % 8.6 %; Neutrophils % 38.5 %; Platelet Count 194 10^3/uL (130-400); RBC 4.13 10^6/uL (3.93-5.22); RDW 12.8 % (11.7-14.6); RDW-SD 45.5 fL; WBC 5.24 10^3/uL (4.4-10.8)
== END 2024-05-01 15:12 | disposition home or self-care (01) ==
LOC: LBO 15:12
PROVIDERS: PCP Family Medicine; Visit Provider Family Medicine
DX: I89.9 Noninfective disorder of lymphatic vessels and lymph nodes, unspecified (principal); T84.84XA Pain due to internal orthopedic prosthetic devices, implants and grafts, initial encounter; Z96.652 Presence of left artificial knee joint
CPT/HCPCS: 36415; 85025

== ENCOUNTER 2024-11-23 01:51 | Outpatient (CLI) | payer BC, SELFPAY ==
[2024-11-23 12:38] LABS: HCT 41.4 % (36.0-46.0); HGB 13.6 g/dL (11.2-15.7); MCH 31.6 pg (27.0-33.0); MCHC 32.9 % (32.0-36.0); MCV 96 fL (80-95); MPV 10.2 fL (8.0-11.0); Platelet Count 220 10^3/uL (130-400); RBC 4.31 10^6/uL (3.93-5.22); RDW-SD 46.5 fL; WBC 4.21 10^3/uL (4.4-10.8)
[2024-11-23 12:52] LABS: ALT 34 U/L (14-59); AST 23 U/L (15-37); Albumin 3.8 g/dL (3.4-5.0); Alkaline Phosphatase 79 U/L (46-116); Anion Gap 7.8 mmol/L (3-11); BUN 26 mg/dL (7-18); Bilirubin, Total 0.6 mg/dL (0.2-1.0); CO2 28.2 mmol/L (21.0-32.0); CREATININE 0.9 mg/dL (0.55-1.02); Calcium 9.8 mg/dL (8.5-10.1); Calculated LDL 126 mg/dL (<100); Chloride 104 mmol/L (98-107); Cholesterol 219 mg/dL (<200); Estimated GFR 71.39 (mL/min/1.73m2); Glucose 107 mg/dL (74-106); HDL Cholesterol 82 mg/dL (>or=50); Potassium 4.1 mmol/L (3.5-5.1); Sodium 140 mmol/L (136-145); TSH (W/Ref FT4) 1.53 uIU/mL (0.36-3.74); Total Protein 6.9 g/dL (6.4-8.2); Triglyceride 55 mg/dL (<150)
[2024-11-23 19:57] LABS: Hepatitis C Ab w Rflx HCV PCR Negative (Negative)
== END 2024-11-23 01:52 | disposition home or self-care (01) ==
LOC: LOS 01:51
PROVIDERS: PCP Family Medicine; Visit Provider Family Medicine
DX: Z11.59 Encounter for screening for other viral diseases (principal); Z00.00 Encounter for general adult medical examination without abnormal findings
CPT/HCPCS: 36415; 80053; 80061; 85027; 86803; 84443

== ENCOUNTER 2024-12-05 02:03 | Outpatient (CLI) | payer BC, SELFPAY ==
--- NOTE | 2024-12-05 06:45 | DI.DEXA_ITS ---
Exam(s) XR DEXA BONE DENSITY W/WO SAUL EXAM: XR DEXA BONE DENSITY W/WO SAUL CLINICAL HISTORY: post menopausal status,z78.0 TECHNIQUE: [email or web address] C densitometer analysis of left hip, lumbar spine and left forearm. Lateral survey image of the thoracic and lumbar spine. COMPARISON: DX DEXA BONE DENSITY WITH SAUL from 08/13/2015 CR XR DEXA BONE DENSITY W/WO SAUL from 05/08/2019 CR XR DEXA BONE DENSITY W/WO SAUL from 07/31/2022 FINDINGS: Lateral view of the thoracic and lumbar spine shows no evidence of compression fractures. There is mild levoscoliosis. Bone mineral density measurements of the lumbar spine correspond to a total T- score of -1.8, in the osteopenic range. This is not significantly changed from the prior exams. Bone mineral density measurements of the left hip correspond to a total T-score of -1.4, not significantly changed from the prior exams. The femoral neck T- score is -2.0, in the osteopenic range. Theleft forearm bone mineral density measurements correspond to a T-score of the distal 3rd of -0.5, in the normal range. This is not significantly changed from 2022 but 8.7 percent decrease from 2015. IMPRESSION: Stable osteopenia of the spine and hip. Normal bone mineral density of the left forearm.
--- NOTE | 2024-12-05 06:45 | DI.MAMMO_ITS ---
Exam(s) MAMMO SCREENING EXAM: MAMMO SCREENING CLINICAL HISTORY: screening,Z12.39 TECHNIQUE: Mammograms were interpreted according to the usual protocol including computer analysis with CAD system, tomosynthesis and C-view imaging. COMPARISON: 2015 through 2023 FINDINGS: The breasts are composed of heterogeneously dense fibroglandular densities, Breast Density category C. No suspicious masses or suspicious microcalcifications are seen. No skin thickening or abnormal axillary lymph nodes are seen. There has been no significant change from prior exams. A biopsy marker clip is again noted in the central posterior left breast. IMPRESSION: BI-RADS Category 1, Negative mammogram. Yearly screening mammography is recommended. Breast Density: Category C - The breasts are heterogeneously dense, which may obscure small masses. Breast density Category C or D implies that the patient has dense breast tissue. Dense breast tissue can make it harder to find cancer on a mammogram. Dense breast tissue is also associated with an increased risk of breast cancer. This information about the result of the mammogram report was provided to the patient to raise their awareness. Use this report when you speak with the patient about their risks for breast cancer, which includes their family history. At that time, you may recommend additional screening tests (Ultrasound or MRI) as these tests may add significant information. A negative radiographic report should not delay biopsy if a dominant or clinically suspicious mass is present. Up to ten percent of cancers are not identified on mammography. A negative report may reinforce clinical impression. Adenosis and dense breasts may obscure an underlying neoplasm. False positive reports average 6 to 10%.
== END 2024-12-05 02:23 ==
LOC: DI 02:03
PROVIDERS: PCP Family Medicine; Visit Provider Family Medicine
DX: Z78.0 Asymptomatic menopausal state (principal); Z12.31 Encounter for screening mammogram for malignant neoplasm of breast; M85.88 Other specified disorders of bone density and structure, other site
CPT/HCPCS: 77063; 77067; 77080

== ENCOUNTER 2025-01-31 02:14 | Outpatient (CLI) | payer MEDICARE, SELFPAY ==
--- NOTE | 2025-01-31 07:15 | DI.RAD_ITS ---
Exam(s) XR KNEE RT 3V AP,LAT,KATERINE EXAM: XR KNEE RT 3V AP,LAT,KATERINE CLINICAL HISTORY: fall on knee,H/O TOTAL REPLACEMENT RT KNEE,Z96.651. TECHNIQUE: 2D digital imaging was performed. Three views. COMPARISON: CR XR KNEE RT 2V AP,LAT from 11/15/[address] LOWER EXTREMITY RT WO from 11/24/2023 FINDINGS: BONES: No acute fracture is present. No bony destructive lesion is seen. The tibial component of the prosthesis has been revised since the prior exam. JOINTS: The knee prosthesis is normally aligned. A small joint effusion is seen. SOFT TISSUE: Normal. IMPRESSION: Status post revision of the tibial component of the knee prosthesis. DATA REPOSITORY: RADIATION DOSE DELIVERED:
--- NOTE | 2025-01-31 07:15 | DI.RAD_ITS ---
Exam(s) XR WRIST RT COMPLETE EXAM: XR WRIST RT COMPLETE CLINICAL HISTORY: wrist pain,M25.539. TECHNIQUE: 2D digital imaging was performed. Three views. COMPARISON: CR RIGHT INDEX FINGER from 01/04/2018 FINDINGS: BONES: No acute fracture is present. No bony destructive lesion is seen. degenerative subchondral cyst in the distal radius. Cyst also present in the lunate. JOINTS: Mild narrowing of the radiocarpal joint. Widening of the scapholunate distance . No significant tilt of the lunate. Severe degenerative changes 1st carpal metacarpal joint. There is prominent periarticular spurring and adjacent bony fragment. SOFT TISSUE: Calcification in the triangular fibrocartilage. IMPRESSION: Degenerative changes greatest at the 1st carpal metacarpal joint. Widening of the scapholunate distance consistent with ligament disruption. DATA REPOSITORY: RADIATION DOSE DELIVERED:
== END 2025-01-31 02:34 ==
LOC: DI 02:14
PROVIDERS: PCP Family Medicine; Visit Provider Family Medicine
DX: Z98.890 Other specified postprocedural states (principal); M19.031 Primary osteoarthritis, right wrist; Z96.651 Presence of right artificial knee joint
CPT/HCPCS: 73562; 73110

== ENCOUNTER 2025-03-07 15:13 | Outpatient (CLI) | payer MEDICARE, SELFPAY ==
[2025-03-07 14:24] LABS: C-Reactive Protein < 0.50 mg/dL (<or=0.5)
[2025-03-08 14:22] LABS: Ro60 Ab, IgG <7.0 CU (<20.0); SS-A/Ro, IgG <2.3 CU (<20.0); SS-B (La) Ab, IgG <3.3 CU (<20.0)
== END 2025-03-07 15:14 | disposition home or self-care (01) ==
LOC: LOS 15:13
PROVIDERS: PCP Family Medicine; Visit Provider Family Medicine
DX: M19.90 Unspecified osteoarthritis, unspecified site (principal)
CPT/HCPCS: 36415; 86140; 86235